=== PATIENT | male | born 1960 | race Caucasian/White ===

== ENCOUNTER → 2024-02-04 11:23 | Outpatient (REF) | payer OTHER, SELFPAY | LOC: PAVMRI 11:23 | PROVIDERS: ATTENDING PHYSICIAN Internal Medicine; FAMILY PHYSICIAN Nurse Practitioner Family | DX: C90.00 Multiple myeloma not having achieved remission (principal) | CPT/HCPCS: 72157; A9575 ==

== ENCOUNTER → 2024-06-05 14:55 | Outpatient (REF) | payer OTHER, SELFPAY | LOC: HWRCS 14:55 | PROVIDERS: ATTENDING PHYSICIAN Internal Medicine Cardiovascular Disease; FAMILY PHYSICIAN Nurse Practitioner Family | DX: I10 Essential (primary) hypertension (principal); I77.819 Aortic ectasia, unspecified site | CPT/HCPCS: 93306 ==

== ENCOUNTER → 2024-07-28 12:36 | Outpatient (REF) | payer OTHER, SELFPAY | LOC: HWRAD 12:36 | PROVIDERS: ATTENDING PHYSICIAN Nurse Practitioner Family | DX: R05.9 Cough, unspecified (principal); R53.83 Other fatigue; R09.81 Nasal congestion | CPT/HCPCS: 71046 ==

== ENCOUNTER → 2024-08-07 14:48 | Outpatient (REF) | payer OTHER, SELFPAY | LOC: RAD 14:48 | PROVIDERS: ATTENDING PHYSICIAN Internal Medicine Cardiovascular Disease; FAMILY PHYSICIAN Nurse Practitioner Family | DX: I10 Essential (primary) hypertension (principal); N28.9 Disorder of kidney and ureter, unspecified | CPT/HCPCS: 93975 ==

== ENCOUNTER 2024-10-27 21:34 | Inpatient (IN) | payer OTHER, SELFPAY ==
[2024-10-27 17:20] VITALS: BP 182/100
--- NOTE | 2024-10-27 17:20 | ED.GENMED ---
ED Provider Triage
<Hemant Day PA-C - Last Filed: 10/27/24 17:22>
-
Patient seen by provider in Triage?: Seen in Triage
64 yo male presents with abnormal outpatient labs and SOB. Had labs at [facility] today showing Cr of 4.04, baseline low 3s. Also with low serum bicarb and elevated BUN. Reportedly had 'stomach virus' last week and was not taking meds. UOP decreased. No
fevers or chills.
Lungs CTAB. No gross edema noted. Reviewed outpatient labs.
Repeat CBC, CMP, check VBG, BNP, CR chest
History of Present Illness
<Hemant Day PA-C - Last Filed: 10/27/24 17:22>
General
Chief Complaint: Breathing Problem
Time Seen by Provider: 10/27/24 19:07
<Ramesh Hernandez MD - Last Filed: 10/28/24 03:05>
General
Source: patient and spouse
Exam Limitations: none
History of Present Illness
History of Present Illness:
Progressive shortness of breath over weeks. Bump in creatinine. No chest pain. Shortness of breath at rest and lying flat. Also noting some edema. History of multiple myeloma. Patient did stop his blood pressure medicines for about a week
after having a gastrointestinal infection
Past History
<Hemant Day PA-C - Last Filed: 10/27/24 17:22>
Past History
ED Past Medical History: Arrthythmia
ED Past Surgical History: None
Social History
Tobacco: Non-smoker
Living: with family
Employment: Employed
<Ramesh Hernandez MD - Last Filed: 10/28/24 03:05>
Past History
ED Past Medical History: CAD and Other (Multiple myeloma/renal insufficiency)
ED Past Surgical History: Orthopedic
Review of Systems
<Ramesh Hernandez MD - Last Filed: 10/28/24 03:05>
Review of Systems
All Other Systems: Not applicable
Constitutional: Denies fever or chills
Respiratory: Denies cough
ABD/GI: Reports no symptoms
Phy Exam
<Ramesh Hernandez MD - Last Filed: 10/28/24 03:05>
Physical Exam
Physical Exam:
GENERAL: Alert and oriented. Mild tachypnea at rest
EYE: Orbits normal.
NECK: Supple, no significant adenopathy.
ENT: Pharynx without erythema
CARDIAC: Regular rate and rhythm without any obvious murmurs.
LUNGS: Mild tachypnea. A few rales in the bases. Port right upper chest wall
ABDOMEN: Soft, without focal tenderness or distention
NEUROLOGICAL: Alert and oriented , grossly non-focal
SKIN: Warm and dry, no rash or lesion, no discoloration, skin intact.
MUSCULOSKELETAL: Minimal bilateral edema lower extremity. Mild hand swelling bilaterally
PSYCH: Normal and appropriate interaction.
Scores
<Ramesh Hernandez MD - Last Filed: 10/28/24 03:05>
Heart Failure Risk
Heart Failure Risk Score: Yes
History of Stroke or TIA: No
History of intubation for respiratory distress: No
Heart rate on ED arrival >/= 110: No
SaO2 <90% on arrival on room air: No
HR >/=110 during 3min walk test (or too ill to perform test): Yes
ECG has acute ischemic changes: No
Urea >/=12mmol/L (BUN 33.6mg/dL): Yes
Serum CO2>/=35mmol/L: No
Troponin I or T elevated to TN Level (0.4mg/dL): No
NT-proBNP >/=5,000ng/L (5,000pg/ml): Yes
HF Risk Score: 4
Admission Status: HIGH RISK 26.1% Consider SNF treatment or admission to hospital
Course
<Hemant Day PA-C - Last Filed: 10/27/24 17:22>
Orders/Labs/Results
Orders:
Orders
10/27/24 Dinner
Cholesterol Lowering
At Your Request: Full Participation
Does patient need a safe tray?: No
Fluid Restriction: 1800 mL/day (60 oz)
Cholesterol Lowering: Sodium, 2 Gram
10/27/24 17:17
Electrocardiogram (*1) Urgent
Reason for Study: Shortness of Breath
EKG- Treatment ONCE
10/27/24 17:18
CR Chest - 2 Views Urgent
Comment:
Reason For Exam: SOB
10/27/24 17:33
Complete Blood Count/With Diff Urgent
Comprehensive Metabolic Panel Urgent
NT-proBNP Urgent
Venous Blood Gas Urgent
%Oxygen/Room Air: 97
10/27/24 19:13
IV Insert/Care/Rem.- Treatment PRN
10/27/24 20:19
Furosemide [Lasix] 40 mg IV NOW STA
10/27/24 20:54
Admit/Transfer Patient As Directed
Co-Sign Provider:
Level of Care: Inpatient admission
Assign to:: Telemetry
Physician / Group: hospitalist
Diagnosis: CHF
Reason for Telemetry: Subacute Heart Failure
Date to Stop Telemetry: 10/29/24
Time to Stop Telemetry: 11:00
Reason for Hospitalization: heart failure
Expected length of stay greater than two midnights?: Yes
ELOS- Estimated Length of Stay in days: 2
I certify the patient meets the requirements for IP care: Yes
PRN Pain Medication Management As Directed
May give lesser potent ordered pain med per pt: Yes
preference::
Protocol:: Medication orders for pain may be administered in a
manner that supports deferring to patient preference
when the pt is:
- Requesting an ordered lesser potent pain medication.
Least to most potent pain medications are defined
as: acetaminophen < NSAID < tramadol < opioids
(morphine, oxycodone, hydromorphone).
- Requesting a lesser dose of the same medication IF
ORDERED.
- Requesting a less intrusive route of administration
if both routes are prescribed by the provider (PO <
IV).
10/27/24 20:55
Code Status As Directed
Resuscitation Status: Full Code
10/27/24 22:00
Flush (0.9% Sodium Chloride) [Flush (Nss)] See Dose Instructions IV PER PROTOCOL
10/27/24 23:12
Albuterol [ProAIR HFA INHALER] 2 puff INH R Q6HPRN PRN
Calcitriol [Rocaltrol] 0.25 mcg PO MoWeFr@0800
Escitalopram Oxalate [Lexapro] 10 mg PO HS
HydrALAZINE [Apresoline] 75 mg PO NOW STA
10/27/24 23:12
Echo 2D MMode Color/Doppler Routine
Reason for Study: heart failure
HF DIETARY CONSULT Routine
HF EDUCATOR CONSULT Routine
Comment:
Urinalysis Routine
Date Specimen was Collected: 10/28/24
Time Specimen was Collected: 00:40
Urine Protein/Creat Ratio (Random) [Protein/Creat Ratio (Random)] Routine
Date Specimen was Collected: 10/28/24
Time Specimen was Collected: 00:41
Activity As Directed
Activity Level: With Assistance
Intake/ Output As Directed
Frequency: Per unit guidelines
Patient Education As Directed
Type: CHF folder
Comment: give on admission. Document in Interdisciplinary Education record
Sleep Apnea Assessment by RN As Directed
Comment:
Physician Instructions:
Vital Signs As Directed
Frequency: Other
Additional Instructions:: Q12 or per unit guidelines if more frequent.
Weight As Directed
Frequency: Daily
Type of Scale: Standing Scale
Comment: Daily morning weight. If unable to stand, use balanced bed scale.
Weight As Directed
Frequency: Once
Type of Scale: Standing Scale
Comment: Upon Admission. If unable to stand, use balanced bed scale.
O2 Therapy [RESP] Routine
Nasal Cannula Liter Flow: 2 LPM
Titrate/Wean O2 to maintain O2 sat greater than (%): 93
Pulse Ox/cont/shift [RESP] Routine
Quantity: 1
Special Instructions: Daily pulse oximetry at rest. If greater than 92% at rest also obtain pulse oximetry
while ambulating as tolerated.
DX Deep Vein Thrombosis Video Routine
10/27/24 23:30
Nebivolol HCl [Bystolic] 20 mg PO HS
10/28/24 00:00
Heparin 5,000 units SC Q8
10/28/24 06:00
Albumin IN AM
Basic Metabolic Panel IN AM
Cardiovascular Evaluation IN AM
Magnesium IN AM
TSH Reflex To Free T4 IN AM
Total Protein IN AM
10/28/24 08:00
Furosemide [Lasix] 40 mg IV BID AT 0800,1600
HydrALAZINE [Apresoline] 75 mg PO BID
Pyridoxine [Vitamin B-6] 100 mg PO DAILY
Valacyclovir HCl [Valtrex] 500 mg PO DAILY
10/29/24 06:00
Basic Metabolic Panel IN AM
10/29/24 11:00
DC Protocol for Telemetry ONCE
10/30/24 06:00
Basic Metabolic Panel IN AM
Abnormal Lab Results
10/27/24
17:33
RBC 2.67 L 10^6/uL
(4.70-6.10)
Hgb 8.8 L g/dL
(13.0-18.0)
Hct 26.1 L %
(39.0-52.0)
MCV 97.8 H fL
(80.0-94.0)
MCH 33.0 H pg
(27.0-31.0)
Abs Immat Gran (auto) 0.1 H 10^3/uL
(0-0.05)
Absolute Neuts (auto) 9.7 H 10^3/uL
(1.4-6.5)
Absolute Lymphs (auto) 0.3 L 10^3/uL
(1.2-3.4)
Immature Gran % 0.6 H %
(0-0.5)
Neutrophils % 90.1 H %
(42.2-75.2)
Lymphocytes % 3.0 L %
(20.5-51.1)
VBG pH 7.27 L
(7.32-7.43)
VBG pO2 53 H mmHg
(30-50)
VBG HCO3 16.5 L mmol/L
(22-27)
Carbon Dioxide 18 L mmol/L
(22-30)
BUN 48 H mg/dl
(9-20)
Creatinine 3.8 H mg/dL
(0.7-1.3)
Glucose 117 H mg/dl
(70-99)
Total Protein 5.8 L g/dl
(6.3-8.2)
10/27/24 17:33
10/27/24 17:33
Vital Signs
Initial and Last Documented VS:
Initial Vital Signs
Temp Pulse Resp BP Pulse Ox
98.1 F 89 18 182/100 94
10/27/24 17:20 10/27/24 17:20 10/27/24 17:20 10/27/24 17:20 10/27/24 17:20
Last Documented Vital Signs
Temp Pulse Resp BP Pulse Ox
98.0 F 80 22 168/102 96
10/27/24 22:46 10/28/24 00:11 10/27/24 22:46 10/28/24 00:11 10/27/24 23:30
<Ramesh Hernandez MD - Last Filed: 10/28/24 03:05>
Orders/Labs/Results
Orders:
Orders
10/27/24 Dinner
Cholesterol Lowering
At Your Request: Full Participation
Does patient need a safe tray?: No
Fluid Restriction: 1800 mL/day (60 oz)
Cholesterol Lowering: Sodium, 2 Gram
10/27/24 17:17
Electrocardiogram (*1) Urgent
Reason for Study: Shortness of Breath
EKG- Treatment ONCE
10/27/24 17:18
CR Chest - 2 Views Urgent
Comment:
Reason For Exam: SOB
10/27/24 17:33
Complete Blood Count/With Diff Urgent
Comprehensive Metabolic Panel Urgent
NT-proBNP Urgent
Venous Blood Gas Urgent
%Oxygen/Room Air: 97
10/27/24 19:13
IV Insert/Care/Rem.- Treatment PRN
10/27/24 20:19
Furosemide [Lasix] 40 mg IV NOW STA
10/27/24 20:54
Admit/Transfer Patient As Directed
Co-Sign Provider:
Level of Care: Inpatient admission
Assign to:: Telemetry
Physician / Group: hospitalist
Diagnosis: CHF
Reason for Telemetry: Subacute Heart Failure
Date to Stop Telemetry: 10/29/24
Time to Stop Telemetry: 11:00
Reason for Hospitalization: heart failure
Expected length of stay greater than two midnights?: Yes
ELOS- Estimated Length of Stay in days: 2
I certify the patient meets the requirements for IP care: Yes
PRN Pain Medication Management As Directed
May give lesser potent ordered pain med per pt: Yes
preference::
Protocol:: Medication orders for pain may be administered in a
manner that supports deferring to patient preference
when the pt is:
- Requesting an ordered lesser potent pain medication.
Least to most potent pain medications are defined
as: acetaminophen < NSAID < tramadol < opioids
(morphine, oxycodone, hydromorphone).
- Requesting a lesser dose of the same medication IF
ORDERED.
- Requesting a less intrusive route of administration
if both routes are prescribed by the provider (PO <
IV).
10/27/24 20:55
Code Status As Directed
Resuscitation Status: Full Code
10/27/24 22:00
Flush (0.9% Sodium Chloride) [Flush (Nss)] See Dose Instructions IV PER PROTOCOL
10/27/24 23:12
Albuterol [ProAIR HFA INHALER] 2 puff INH R Q6HPRN PRN
Calcitriol [Rocaltrol] 0.25 mcg PO MoWeFr@0800
Escitalopram Oxalate [Lexapro] 10 mg PO HS
HydrALAZINE [Apresoline] 75 mg PO NOW STA
10/27/24 23:12
Echo 2D MMode Color/Doppler Routine
Reason for Study: heart failure
HF DIETARY CONSULT Routine
HF EDUCATOR CONSULT Routine
Comment:
Urinalysis Routine
Date Specimen was Collected: 10/28/24
Time Specimen was Collected: 00:40
Urine Protein/Creat Ratio (Random) [Protein/Creat Ratio (Random)] Routine
Date Specimen was Collected: 10/28/24
Time Specimen was Collected: 00:41
Activity As Directed
Activity Level: With Assistance
Intake/ Output As Directed
Frequency: Per unit guidelines
Patient Education As Directed
Type: CHF folder
Comment: give on admission. Document in Interdisciplinary Education record
Sleep Apnea Assessment by RN As Directed
Comment:
Physician Instructions:
Vital Signs As Directed
Frequency: Other
Additional Instructions:: Q12 or per unit guidelines if more frequent.
Weight As Directed
Frequency: Daily
Type of Scale: Standing Scale
Comment: Daily morning weight. If unable to stand, use balanced bed scale.
Weight As Directed
Frequency: Once
Type of Scale: Standing Scale
Comment: Upon Admission. If unable to stand, use balanced bed scale.
O2 Therapy [RESP] Routine
Nasal Cannula Liter Flow: 2 LPM
Titrate/Wean O2 to maintain O2 sat greater than (%): 93
Pulse Ox/cont/shift [RESP] Routine
Quantity: 1
Special Instructions: Daily pulse oximetry at rest. If greater than 92% at rest also obtain pulse oximetry
while ambulating as tolerated.
DX Deep Vein Thrombosis Video Routine
10/27/24 23:30
Nebivolol HCl [Bystolic] 20 mg PO HS
10/28/24 00:00
Heparin 5,000 units SC Q8
10/28/24 06:00
Albumin IN AM
Basic Metabolic Panel IN AM
Cardiovascular Evaluation IN AM
Magnesium IN AM
TSH Reflex To Free T4 IN AM
Total Protein IN AM
10/28/24 08:00
Furosemide [Lasix] 40 mg IV BID AT 0800,1600
HydrALAZINE [Apresoline] 75 mg PO BID
Pyridoxine [Vitamin B-6] 100 mg PO DAILY
Valacyclovir HCl [Valtrex] 500 mg PO DAILY
10/29/24 06:00
Basic Metabolic Panel IN AM
10/29/24 11:00
DC Protocol for Telemetry ONCE
10/30/24 06:00
Basic Metabolic Panel IN AM
Abnormal Lab Results
10/27/24
17:33
RBC 2.67 L 10^6/uL
(4.70-6.10)
Hgb 8.8 L g/dL
(13.0-18.0)
Hct 26.1 L %
(39.0-52.0)
MCV 97.8 H fL
(80.0-94.0)
MCH 33.0 H pg
(27.0-31.0)
Abs Immat Gran (auto) 0.1 H 10^3/uL
(0-0.05)
Absolute Neuts (auto) 9.7 H 10^3/uL
(1.4-6.5)
Absolute Lymphs (auto) 0.3 L 10^3/uL
(1.2-3.4)
Immature Gran % 0.6 H %
(0-0.5)
Neutrophils % 90.1 H %
(42.2-75.2)
Lymphocytes % 3.0 L %
(20.5-51.1)
VBG pH 7.27 L
(7.32-7.43)
VBG pO2 53 H mmHg
(30-50)
VBG HCO3 16.5 L mmol/L
(22-27)
Carbon Dioxide 18 L mmol/L
(22-30)
BUN 48 H mg/dl
(9-20)
Creatinine 3.8 H mg/dL
(0.7-1.3)
Glucose 117 H mg/dl
(70-99)
Total Protein 5.8 L g/dl
(6.3-8.2)
10/27/24 17:33
10/27/24 17:33
Vital Signs
Initial and Last Documented VS:
Initial Vital Signs
Temp Pulse Resp BP Pulse Ox
98.1 F 89 18 182/100 94
10/27/24 17:20 10/27/24 17:20 10/27/24 17:20 10/27/24 17:20 10/27/24 17:20
Last Documented Vital Signs
Temp Pulse Resp BP Pulse Ox
98.0 F 80 22 168/102 96
10/27/24 22:46 10/28/24 00:11 10/27/24 22:46 10/28/24 00:11 10/27/24 23:30
<Ramesh Hernandez MD - Last Filed: 10/28/24 03:05>
MDM/Problems Addressed
Differential Diagnosis Includes:
Progressive renal insufficiency in the setting of CHF. Warrants inpatient management. Hospitalist contacted. Will likely need GI and cardiology involvement
<Ramesh Hernandez MD - Last Filed: 10/28/24 03:05>
*Radiology
Radiology exam reviewed: radiology read reviewed (Mild pulmonary edema)
*Pulse Oximetry
Patient hypoxic: no
*EKG
Interpreted by ED Provider?: Yes
Interpretation: normal
Comparison EKG: changes noted
Heart Rate: 79
Rate: normal
Rhythm: sinus
Lee: normal axis
Interval: normal interval
QRS Pattern: normal QRS
Ischemia: non-specific ST changes
*Critical Care Note
Total Time (30-74mins, 75-104mins- exclusive of procedures): Not Applicable
Data Reviewed
Review of Other/Old Records Reveals: Labs, Records and Testing
ED Attending Note
<Hemant Day PA-C - Last Filed: 10/27/24 17:22>
-
Portions of this chart may have been created with voice recognition software.� Occasional wrong word or��sound alike� substitutions may have occurred due to the inherent limitations of voice recognition software.
Discharge Plan
Departure
Patient Disposition: Admit
Date of Disposition: 10/27/24
Time of Disposition: 19:18
Presentation/result/management discussed w/ accepting MD/DO: Hospitalist
Discharge Problem:
Pulmonary edema/progressive renal insuff, Multiple myeloma
Interventions
Interventions:
*Risk Screen - Suicide Last Done: 10/28/24 00:13
*General Assessment Last Done: 10/27/24 22:13
*Neglect/Abuse Screening Last Done: 10/27/24 22:14
ED- Fall Risk Assessment Last Done: 10/27/24 19:59
*ED COVID-19 Vaccine History Last Done: 10/28/24 00:13
*Nursing Disposition Last Done: 10/27/24 22:14
ED- Cardiac Assessment Last Done: 10/27/24 19:59
ED- Pulmonary Assessment Last Done: 10/27/24 19:59
Discharge Date and Time
Discharge Date/Time: 10/27/24 22:14
[2024-10-27 17:41] LABS: % Basophils 0.3 % (0-2); % Eosinophils 0.3 % (0-6); % Immature Granulocytes 0.6 % (0-0.5); % Monocytes 5.7 % (1.7-9.3); % Neutrophils 90.1 % (42.2-75.2); Absolute Immature Granulocytes 0.1 10^3/uL (0-0.05); Absolute Lymphocytes 0.3 10^3/uL (1.2-3.4); Absolute Monocytes 0.6 10^3/uL (0.1-0.6); Absolute Neutrophils 9.7 10^3/uL (1.4-6.5); Hematocrit 26.1 % (39.0-52.0); Hemoglobin 8.8 g/dL (13.0-18.0); Mean Corp Hgb Conc. 33.7 g/dL (33.0-37.0); Mean Corpuscular Volume 97.8 fL (80.0-94.0); Mean Platelet Volume 10.3 fL (7.4-10.4); Nucleated Red Blood Cells % 0 % (-); Platelet Count 178 10^3/uL (130-400); Red Blood Cell Count 2.67 10^6/uL (4.70-6.10); Red Cell Dist. Width 14.5 % (11.5-14.5); Venous Blood Gas B.E. -9.6 mmol/L (-4 to +4); Venous Blood Gas HCO3 16.5 mmol/L (22-27); Venous Blood Gas O2 Therapy Air 97; Venous Blood Gas pCO2 36 mmHg (35-48); Venous Blood Gas pH 7.27 (7.32-7.43); Venous Blood Gas pO2 53 mmHg (30-50); White Blood Cell Count 10.7 10^3/uL (4.8-10.8)
[2024-10-27 17:58] LABS: ALT (SGPT) 18 U/L (0-50); AST (SGOT) 23 U/L (17-59); Albumin 3.9 g/dl (3.5-5.0); Alkaline Phosphatase 79 U/L (38-126); Blood Urea Nitrogen 48 mg/dl (9-20); Calcium 8.4 mg/dl (8.4-10.2); Carbon Dioxide 18 mmol/L (22-30); Chloride 104 mmol/L (98-107); Glucose 117 mg/dl (70-99); Sodium 135 mmol/L (135-145); Total Bilirubin 0.5 mg/dl (0.2-1.3); Total Protein 5.8 g/dl (6.3-8.2); eGFR 17.15
[2024-10-27 18:54] LABS: NT-proBNP > 27000 pg/ml
[2024-10-27 19:32] VITALS: BMI 33.5
[2024-10-27 19:56] VITALS: BP 174/94
[2024-10-27 20:42] VITALS: BP 177/97
[2024-10-27] MEDS: LASIX 40 MG IV (20:42)
--- NOTE | 2024-10-27 20:42 | HPS.HSE ---
Family Physician
-
Family Physician: NOT KNOW UNKNOWN - PT DOES
Chief Complaint
-
Shortness of breath
History of Present Illness
This is a 64-year-old male with past medical history significant for multiple myeloma, CKD stage IV, hypertension, presenting to the Emergency Department with shortness of breath.
Essentially patient recently had an episode of gastroenteritis with rising creatinine. On follow-up with his oncology clinic he was advised to take lots of fluid. During this episode of nausea vomiting and diarrhea he was not taking his
antihypertensives. Patient has been having worsening blood pressure control for several months however recently due to stopping his antihypertensives his blood pressure started to rise. He noticed bilateral lower extremity swelling. And he
started getting short of breath. He started taking the hydralazine and nebivolol starting about a week ago again. He has dyspnea on exertion. He denies any chest pain, he denies palpitations diaphoresis nausea or vomiting currently. He is on
maintenance therapy for his multiple myeloma.
Patient denies prior history of CHF. Last echo shows an EF of around 55% with mild aortic regurgitation.
In the ED today he was hypertensive to 180 systolic and diastolic was 100, pulse was 73 and he was satting 95% on 2 L. ECG shows normal sinus rhythm at a rate of 79. BNP was elevated at 27,000. Troponin is pending. Chest x-ray shows cardiomegaly
with pulmonary edema and small bilateral pleural effusions. CBC shows anemia with hemoglobin of 8.4 which is unchanged from prior. Creatinine is 3.8 from 3.1 a year ago. BUN 48. Potassium was 5.0 and bicarb of 18. VBG shows non-anion gap
metabolic acidosis with a pH of 7.27 and bicarb of 18
Medical History
Past Medical History
Past Medical History: Reports Cancer (Multiple myeloma) and HTN
Additional Past Medical History:
CKD stage IV
Past Surgical History: Reports Other
Social History
Tobacco: Non-smoker
Alcohol: None
Drug: None
Personal:
Living: With Family
Family History
Family History: Not pertinent
Allergies / Home Medications
Allergies reflects when Allergies were last updated in [employer].
Home Medications with original date entered in [employer]
Allergy/Medication List:
Allergies
Allergy/AdvReac Type Severity Reaction Status Date / Time
Fruit Extracts Allergy Itching Verified 12/12/22 06:02
[From Fruit & Vegetable
Daily]
Lutein Extract Allergy Itching Verified 12/12/22 06:02
[From Fruit & Vegetable
Daily]
lycopene Allergy Itching Verified 12/12/22 06:02
[From Fruit & Vegetable
Daily]
Home Medications
albuterol sulfate 90 mcg/actuation aerosol inhaler 2 puff inhalation R Q6HPRN PRN sob 10/27/24
calcitriol 0.25 mcg capsule 0.25 mcg PO MOWEFR 10/27/24
daratumumab 20 mg/mL intravenous solution (Darzalex) 0 mg IV QMONTH 10/27/24
escitalopram oxalate 10 mg tablet 10 mg PO HS 10/27/24
hydralazine 25 mg tablet 75 mg PO BID 10/27/24
loperamide 2 mg capsule 2 mg PO QIDPRN PRN diarrhea 10/27/24
nebivolol 10 mg tablet 20 mg PO HS 10/27/24
potassium chloride 20 mEq tablet,extended release(part/cryst) (Klor-Con M) 20 meq PO DAILY 10/27/24
pyridoxine (vitamin B6) 100 mg tablet 100 mg PO DAILY 10/27/24
valacyclovir 500 mg tablet 500 mg PO DAILY 10/27/24
Review of Systems
-
History Source: Patient
Constitutional: Reports No Symptoms
EENT: Reports No Symptoms
Respiratory: Reports Trouble Breathing
Cardiac: Reports No Symptoms
Abdomen/GI: Reports No Symptoms
: Reports No Symptoms
Musculoskeletal: Reports No Symptoms
Skin: Reports No Symptoms
Endocrine: Reports No Symptoms
Hematologic/Lymphatic: Reports No Symptoms
Psych: Reports No Symptoms
Physical Exam
Vital Signs
Vital Signs
Temp Pulse Resp BP Pulse Ox
98.1 F 75 23 182/100 95
10/27/24 17:20 10/27/24 19:45 10/27/24 19:45 10/27/24 17:20 10/27/24 19:45
Physical Exam
General: Well Developed, Well Nourished, Comfortable and Conversant
HEENT: NormoCephalic, Anicteric, Moist mucous membranes, Atraumatic, PERRLA and Oxygen
Respiratory: Crackles
Cardiac: S1/S2 and Regular Rhythm
Breast: Deferred by me
GI: Soft, Non Tender and Non Distended
Rectal: Deferred by Provider
Genito-urinary: Deferred by me
Musculoskeletal: No Clubbing, No Cyanosis, Edema, Left Lower Extremity (1+) and Edema, Right Lower Extremity (1+)
Skin: Warm
Neuro: AO x 3 and Nonfocal/grossly intact
Hematologic/Lymphatic: No Lymphadenopathy
Psych: Calm
Laboratory Results
-
10/27/24 17:33
10/27/24 17:33
Laboratory Results
Total Bilirubin 0.5 mg/dl (0.2-1.3) 10/27/24 17:33
AST 23 U/L (17-59) 10/27/24 17:33
ALT 18 U/L (0-50) 10/27/24 17:33
Alkaline Phosphatase 79 U/L (38-126) 10/27/24 17:33
Data Reviewed
-
Diagnostic Radiology: Image Personally Visualized and interpreted and Report Reviewed by me
Medical Tests (Nuc Med, Echo, EKG etc): Image Personally Visualized and interpreted
Lab Data: Labs Reviewed by me
Old Records: Reviewed
Impression/Plan
-
IMPRESSION:
64 y.o male with MM on maintenance therapy, stated to be in remission here with ALLYSON on CKD and volume overload with pulmonary edema, peripheral edema, uncontrolled hypertension.
PLAN:
1. Volume overload - CHF with elevated BNP. Possibly cardiorenal II. Prior echo a year ago with preserved EF. Now with pulmonary edema and hypoxia.
- admit to telemetry
- clearly volume overloaded, will give lasix 40mg iv bid for now
- monitor daily weights and i/os
- continue beta blockade and hydralazine for now
- echo in am, tsh, cardiovascular labs
- cardiology consult
2. CKD - Cr 3.8, mild hyperk to 5, mild non-ag metabolic acidosis. Suspect worsening renal failure
- diuresis as above
- bp control
- check u/a and urine protein quantification
- MM in remission per patient
- renal consult
DVT PPX - heparin sq
Code status - full code
[2024-10-27 22:46] VITALS: BP 168/102; BMI 31.8
--- NOTE | 2024-10-27 23:30 | PTCARENOTE ---
Pt. admitted from E.D., AAO x 3, 96% 2L, skin intact, NSR on monitor, call butler within reach.
[2024-10-28] MEDS: LEXAPRO PO (00:02)
[2024-10-28] MEDS: ROCALTROL PO (00:03)
[2024-10-28] MEDS: BYSTOLIC 20 MG PO ×2 (00:03→20:20)
[2024-10-28] MEDS: HEPARIN 5000 UNITS SC ×3 (00:04→15:37)
[2024-10-28] MEDS: APRESOLINE 75 MG PO ×3 (00:11→20:18)
[2024-10-28 01:03] LABS: Urine Albumin Negative (Neg - Trace); Urine Bilirubin Negative (Negative); Urine Character Clear (Clear); Urine Color Straw; Urine Glucose Negative (Negative); Urine Ketone Negative (Negative); Urine Leukocyte Negative (Negative); Urine Nitrite Negative (Negative); Urine Occult Blood Negative (Negative); Urine Urobilinogen Negative (Neg - 1+)
[2024-10-28 01:56] LABS: Protein/creatinine Ratio 0.6; Urine Protein 12 mg/dl
[2024-10-28 03:31] VITALS: BP 166/96
[2024-10-28 05:56] VITALS: BMI 31.7
[2024-10-28 07:50] VITALS: BP 164/98
[2024-10-28] MEDS: VITAMIN B-6 100 MG PO (08:44)
[2024-10-28] MEDS: LASIX 40 MG IV ×2 (08:45→15:37)
[2024-10-28] MEDS: VALTREX 500 MG PO (08:45)
[2024-10-28 09:24] LABS: Albumin 3.8 g/dl (3.5-5.0); Blood Urea Nitrogen 52 mg/dl (9-20); Calcium 8.3 mg/dl (8.4-10.2); Carbon Dioxide 16 mmol/L (22-30); Chloride 105 mmol/L (98-107); Estimated Creatinine Clearance 23 ml/min; Glucose 100 mg/dl (70-99); HDL Cholesterol 37 mg/dl; LDL Cholesterol, Calculated 110 mg/dl; Magnesium 1.8 mg/dl (1.6-2.3); Potassium 4.6 mmol/L (3.5-5.1); Sodium 134 mmol/L (135-145); Total Cholesterol 176 mg/dl (50-199); Total Protein 5.6 g/dl (6.3-8.2); Triglyceride 147 mg/dl (10-149); Very Low Density Lipoprotein 29 mg/dl (0-30); eGFR 16.62
--- NOTE | 2024-10-28 12:39 | W.PN.HOSP.TC ---
Today's Communication/Plan
-
wean o2
check stool studies if with diarrhea
diuresis
po bicarb
Assessment / Plan
Assessment / Plan
IMPRESSION:
64 y.o male with MM on maintenance therapy, stated to be in remission here with ALLYSON on CKD and volume overload with pulmonary edema, peripheral edema, uncontrolled hypertension.
Acute on chronic diastolic heart failure exacerbation
Pulmonary edema
Acute hypoxic respiratory insufficiency
- clearly volume overloaded, will give lasix 40mg iv bid for now
- monitor daily weights and i/os
- continue beta blockade and hydralazine for now
- echo wednesday if here,
CKD - Cr 3.8, mild hyperk to 5, mild non-ag metabolic acidosis.
- diuresis as above
- bp control
- check u/a and urine protein quantification
- MM in remission per patient
Multiple myeloma
-Last chemotherapy regimen was in September. Follows with Dr. Silverio Carter [facility].
Nausea, vomiting and diarrhea likely second to viral gastroenteritis norovirus suspected
-Symptoms seems to be improving. Symptomatic management. Patient stopped taking all his blood pressure and diuretics due to viral gastroenteritis likely leading to volume overload.
DVT PPX - heparin sq
Code status - full code
Anticipated Discharge: > 48 hours
Subjective/Interval History
-
Date of Service: October 28, 2024
states he is better
breathing has improved
states of 1 week ago or so with nausea,vomiting and persistent diarrhea.
Objective Data
-
Labs:
Laboratory Results
10/28/24
08:33
Sodium 134 L
Potassium 4.6
Chloride 105
Carbon Dioxide 16 L
BUN 52 H
Creatinine 3.9 H
Glucose 100 H
Calcium 8.3 L
Vital Signs:
Vital Signs
Temp Pulse Resp BP Pulse Ox
97.5 F 68 20 164/98 97
10/28/24 07:50 10/28/24 07:50 10/28/24 07:50 10/28/24 07:50 10/28/24 07:50
I&O
10/27/24 10/28/24 10/29/24
06:59 06:59 06:59
Intake Total 120 / 120
Output Total 950 / 950
Balance -830 / -830
Physical Exam
-
General: Well Developed and No Apparent Distress
HEENT: Normocephalic, Atraumatic, Moist Mucous Membranes, Oxygen and Other (port noted )
Respiratory: Decreased Breath Sounds
Cardiac: Regular Rhythm and S1/S2; Negative Murmur, Rub or Gallop
GI: Soft, Nontender, Nondistended and Normal Bowel Sounds; Negative Organomegaly
Rectal: Deferred by Provider
Musculoskeletal: No Clubbing, No Cyanosis and No Edema
Skin: Negative Rash
Neuro: Awake, Alert, Oriented, AO x 3, No Motor Deficits and Nonfocal/Grossly Intact
Psych: Calm
Data Reviewed
-
Total Time Spent with Patient (in minutes): 55
[2024-10-28] MEDS: SODIUM BICARBONATE 650 MG PO ×2 (15:34→20:21)
[2024-10-28 15:41] VITALS: BP 165/116
[2024-10-28 19:56] VITALS: BP 181/103
[2024-10-28 23:17] VITALS: BP 149/88
[2024-10-29] MEDS: LEXAPRO 10 MG PO ×2 (01:15→22:34)
[2024-10-29 03:43] VITALS: BP 169/102
[2024-10-29 05:51] VITALS: BMI 30.6
[2024-10-29 07:37] LABS: Blood Urea Nitrogen 58 mg/dl (9-20); Calcium 7.9 mg/dl (8.4-10.2); Carbon Dioxide 19 mmol/L (22-30); Chloride 103 mmol/L (98-107); Estimated Creatinine Clearance 22 ml/min; Glucose 92 mg/dl (70-99); Sodium 134 mmol/L (135-145); eGFR 16.62
[2024-10-29 07:42] VITALS: BP 148/74
[2024-10-29] MEDS: VITAMIN B-6 100 MG PO (09:11)
[2024-10-29] MEDS: SODIUM BICARBONATE 650 MG PO ×3 (09:11→22:34)
[2024-10-29] MEDS: HEPARIN 5000 UNITS SC ×4 (09:12→23:39)
[2024-10-29] MEDS: LASIX 40 MG IV (09:13)
[2024-10-29] MEDS: VALTREX 500 MG PO (10:51)
[2024-10-29] MEDS: APRESOLINE 75 MG PO ×2 (10:51→22:33)
--- NOTE | 2024-10-29 11:15 | PTCARENOTE ---
11:00 Transfered pt to [address] [place] [address] (room 2139) via wheelchair, Pt aware positive for Norovirus and needed private room (Enhance isolation). Report given to [address] [place] [address] nurse.
[2024-10-29 11:50] VITALS: BP 155/80
--- NOTE | 2024-10-29 14:05 | W.PN.HOSP.TC ---
Today's Communication/Plan
-
Urine studies
hold lasix
isolation-norovirus
renal US
ECHO in morning
Assessment / Plan
Assessment / Plan
IMPRESSION:
64 y.o male with MM on maintenance therapy, stated to be in remission here with ALLYSON on CKD and volume overload with pulmonary edema, peripheral edema, uncontrolled hypertension.
Acute on chronic diastolic heart failure exacerbation
Pulmonary edema
Acute hypoxic respiratory insufficiency
- Cr continues to trend up. Hold lasix.
- monitor daily weights and i/os
- continue beta blockade and hydralazine for now
- Probnp was >[id number] on admission
- echo wednesday
ALLYSON on CKD stage 3b
Anion gap metabolic acidosis
Hyperkalemia
-requested primary tray server Op records
-bladder scan per the protocol
-States baseline around 3-3.2.
- MM in remission per patient. 08/17 Arterial renal duplex with no renal artery stenosis bilaterally
-Check urine lytes. bladder scan protocol. US renal/bladder pending
Multiple myeloma
-Last chemotherapy regimen was in September. Follows with Dr. Silverio Carter [facility].
Nausea, vomiting and diarrhea likely second to viral gastroenteritis norovirus
-Symptoms seems to be improving. Symptomatic management. Patient stopped taking all his blood pressure
DVT PPX - heparin sq
Code status - full code
Anticipated Discharge: > 48 hours
Subjective/Interval History
-
Date of Service: October 29, 2024
states of intermittent loose bm
states of increasing amount of urination and improvement in edema
states breathing has improved
no abd pain
Objective Data
-
Labs:
Laboratory Results
10/29/24
05:51
Sodium 134 L
Potassium 4.0
Chloride 103
Carbon Dioxide 19 L
BUN 58 H
Creatinine 3.9 H
Glucose 92
Calcium 7.9 L
Vital Signs:
Vital Signs
Temp Pulse Resp BP Pulse Ox
98.3 F 65 18 148/74 96
10/29/24 07:42 10/29/24 07:42 10/29/24 07:42 10/29/24 07:42 10/29/24 11:30
I&O
10/28/24 10/29/24 10/30/24
06:59 06:59 06:59
Intake Total 120 / 120 480 / 480
Output Total 950 / 950 2150 / 2150
Balance -830 / -830 -1670 / -1670
Physical Exam
-
General: Well Developed and No Apparent Distress
HEENT: Normocephalic, Atraumatic, Moist Mucous Membranes and Other (port noted )
Respiratory: Decreased Breath Sounds
Cardiac: Regular Rhythm and S1/S2; Negative Murmur, Rub or Gallop
GI: Soft, Nontender, Nondistended and Normal Bowel Sounds; Negative Organomegaly
Rectal: Deferred by Provider
Musculoskeletal: No Clubbing, No Cyanosis and No Edema
Skin: Negative Rash
Neuro: Awake, Alert, Oriented, AO x 3, No Motor Deficits and Nonfocal/Grossly Intact
Psych: Calm
Data Reviewed
-
Total Time Spent with Patient (in minutes): 55
[2024-10-29 15:55] VITALS: BP 177/98
--- NOTE | 2024-10-29 16:23 | W.CON.NEPH ---
Consultation
-
Date/Time Consultation Requested: 10/29/24 1405
Date/Time Consultation Performed: 10/29/24 1630
Requesting Provider: Alber Cerna
Performing Provider: Antoinette Brown
Reason for Consultation: ALLYSON
Medical History
-
Chief Complaint: SOB
History of Present Illness:
64-year-old male with past medical history significant for multiple myeloma on Daratumumab monthly prior BMT, CKD stage IV baseline cr low 3 range follows nephro at [facility], hypertension on hydralazine, Nebivolol, presenting to the Emergency
Department with shortness of breath on 10/27.Reportedly patient noted to have gastroenteritis symptoms started middle of September. During this time he decided not to take his antihypertensives and was drinking or liquids, reports no change in the
amount of the urine output. Denies having any fever or chills. She started to notice lower extremity edema and eventually had shortness of breath that led him to come to the hospital. diagnosed with acute CHF, started on the diuretics with good
response however his creatinine remains elevated at 3.9 hence nephrology was consulted. BP high on admit and he is now back on his home antihypertensives. Lasix held after this morning dose.
he reports following nephrology at [place], Does not recall the name. Reports his been referred to the [facility] and had one visit yet to complete all the testing. He has no active nausea or vomiting. Still with the loose bowel
movements without abdominal pain.He lost 4 kg of wt. He is positive for no rotavirus currently in isolation. Reports his was also sick but she recovered quickly.
Past Medical History
multiple myeloma not in remission
Hypertension
CKD4
History of autologous stem cell transplant 2021
Anxiety/depression
A. fib
Anemia
Hypogammaglobulinemia
History of compression fracture T11
Obesity
Sleep apnea
History of gout
Past Surgical History: Other ( closed reduction of elbow fracture, colonoscopy, hip surgery,humerus surgery, ORIF of hip fracture, his dental extraction)
Social History
Tobacco: Non-Smoker
Alcohol: Occasional
Personal:
Living: With Family
Employment: Disabled
Family History
brother with a history of nephrectomy for kidney cancer
Father with prostate cancer and colon cancer, stroke
Allergies / Home Medications
Allergy/AdvReac Type Severity Reaction Status Date / Time
Fruit Extracts Allergy Itching Verified 12/12/22 06:02
[From Fruit & Vegetable
Daily]
Lutein Extract Allergy Itching Verified 12/12/22 06:02
[From Fruit & Vegetable
Daily]
lycopene Allergy Itching Verified 12/12/22 06:02
[From Fruit & Vegetable
Daily]
�Medication �Instructions �Recorded �Confirmed �Type
albuterol sulfate 90 mcg/actuation 2 puff inhalation R Q6HPRN PRN sob 10/27/24 10/27/24 History
aerosol inhaler
calcitriol 0.25 mcg capsule 0.25 mcg PO MOWEFR Electrolyte 10/27/24 10/27/24 History
Repletion
daratumumab 20 mg/mL intravenous 0 mg IV QMONTH Cancer 10/27/24 10/27/24 History
solution (Darzalex)
escitalopram oxalate 10 mg tablet 10 mg PO HS Depression 10/27/24 10/27/24 History
hydralazine 25 mg tablet 75 mg PO BID Blood Pressure 10/27/24 10/27/24 History
loperamide 2 mg capsule 2 mg PO QIDPRN PRN diarrhea 10/27/24 10/27/24 History
nebivolol 10 mg tablet 20 mg PO HS Blood Pressure 10/27/24 10/27/24 History
potassium chloride 20 mEq 20 meq PO DAILY Electrolyte 10/27/24 10/27/24 History
tablet,extended Repletion
release(part/cryst) (Klor-Con M)
pyridoxine (vitamin B6) 100 mg 100 mg PO DAILY Supplement 10/27/24 10/27/24 History
tablet
valacyclovir 500 mg tablet 500 mg PO DAILY antiviral 10/27/24 10/27/24 History
Review of Systems
-
All complete 12 point review of system have been inquired and found negative other than stated in HPI
Physical Exam
Vital Signs
Vital Signs
Temp Pulse Resp BP Pulse Ox
98.3 F 69 22 155/80 96
10/29/24 07:42 10/29/24 11:50 10/29/24 11:50 10/29/24 11:50 10/29/24 11:50
Lab Results
WBC 10.7 10^3/uL (4.8-10.8) 10/27/24 17:33
RBC 2.67 10^6/uL (4.70-6.10) L 10/27/24 17:33
Hgb 8.8 g/dL (13.0-18.0) L 10/27/24 17:33
Hct 26.1 % (39.0-52.0) L 10/27/24 17:33
Plt Count 178 10^3/uL (130-400) 10/27/24 17:33
Sodium 134 mmol/L (135-145) L 10/29/24 05:51
Potassium 4.0 mmol/L (3.5-5.1) 10/29/24 05:51
Chloride 103 mmol/L (98-107) 10/29/24 05:51
Carbon Dioxide 19 mmol/L (22-30) L 10/29/24 05:51
BUN 58 mg/dl (9-20) H 10/29/24 05:51
Creatinine 3.9 mg/dL (0.7-1.3) H 10/29/24 05:51
eGFR 16.62 10/29/24 05:51
Glucose 92 mg/dl (70-99) 10/29/24 05:51
Calcium 7.9 mg/dl (8.4-10.2) L 10/29/24 05:51
Cvr-F-Frujytqktqv Pept > 36116 pg/ml 10/27/24 17:33
Albumin 3.8 g/dl (3.5-5.0) 10/28/24 08:33
CXR:
IMPRESSION:
1. Mild acute interstitial cardiogenic pulmonary edema.
2. Small bilateral pleural effusions.
3. Mild cardiomegaly.
4. Right IJ chemotherapy Mediport in place.
Physical Exam
General: Awake, Alert, Oriented, AOx3, No Distress and Nontoxic
HEENT: EOMI, Anicteric, Conjunctivae Clear, Dentition Intact and No JVD
Respiratory: Clear, Normal Excursion and Nonlabored Respirations
Cardiac: S1/S2 and Regular Rate/Rhythm
Breast: Deferred by me
Abdomen: Soft, Nontender and Nondistended
Musculoskeletal: No Cyanosis and No Edema
Skin: No Rash
Neuro: Nonfocal/Grossly Intact
Psych: Mood/afflect pleasant, Insight/judgement good and Appropriate
Data Reviewed
-
Radiology: Report Reviewed by me and Discussed with Patient
Labs: Labs Reviewed by me and Discussed with Patient
Assessment/Plan
-
IMP:
GE NOrovirus
Acute on chronic diastolic heart failure exacerbation
ALLYSON on CKD stage 4
Non Anion gap metabolic acidosis
Multiple myeloma-Follows with Dr. Silverio Carter [facility] [place].
Hypertension
History of autologous stem cell transplant 2021
Anxiety/depression
h/o A. fib
Anemia
Hypogammaglobulinemia
History of compression fracture T11
Obesity
Sleep apnea
History of gout
PLan:
A/w acute CHF and GE Norovirus
ALLYSON-cr 3.9 elevated from baseline in low 3 ranges
suspect prerenal- from cardiorenal and also GE
UA was bland and Fena not low
follow bladder scan, renal US per primary
ok to hold lasix since CHF seem improved, echo pending tomorrow
non gap met acidosis-monitor on po sodium bicarb
We reviewed high risk of future HD which he understands
hopefully can escape HD this admit
low salt diet and FR
follow daily wts and labs
d/w pt in detail
[2024-10-29 17:28] LABS: Urine Sodium 69 mmol/L (30-90)
[2024-10-29 17:47] LABS: Body Fluid for Eosinophils No Eosinophils seen
[2024-10-29 19:17] VITALS: BP 135/80
[2024-10-29 20:59] LABS: Urine Uric Acid 12.7 mg/dl
[2024-10-29] MEDS: BYSTOLIC 20 MG PO (22:34)
[2024-10-29 23:11] VITALS: BP 161/93
[2024-10-30 03:44] VITALS: BP 158/84
[2024-10-30 05:31] LABS: Blood Urea Nitrogen 61 mg/dl (9-20); Calcium 8.1 mg/dl (8.4-10.2); Carbon Dioxide 22 mmol/L (22-30); Chloride 101 mmol/L (98-107); Estimated Creatinine Clearance 21 ml/min; Glucose 104 mg/dl (70-99); Potassium 3.7 mmol/L (3.5-5.1); Sodium 136 mmol/L (135-145); eGFR 15.21
[2024-10-30 06:00] VITALS: BMI 31.3
[2024-10-30 07:58] VITALS: BP 161/90
[2024-10-30] MEDS: APRESOLINE 75 MG PO ×2 (08:15→21:51)
[2024-10-30] MEDS: VITAMIN B-6 100 MG PO (08:15)
[2024-10-30] MEDS: SODIUM BICARBONATE 650 MG PO ×3 (08:17→21:52)
[2024-10-30] MEDS: VALTREX 500 MG PO (08:17)
[2024-10-30] MEDS: ROCALTROL 0.25 MCG PO (08:18)
[2024-10-30] MEDS: HEPARIN 5000 UNITS SC ×3 (08:18→23:40)
[2024-10-30 10:55] VITALS: BP 157/87
--- NOTE | 2024-10-30 11:41 | W.PN.NEPH.PH ---
Today's Communication / Plan
-
Holding Lasix
Recommend post void bladder scan given presence of left hydro on ultrasound of kidney and noncontrast CT
Assessment/Plan
-
IMP:
GE NOrovirus
Acute on chronic diastolic heart failure exacerbation
ALLYSON on CKD stage 4
Non Anion gap metabolic acidosis
Multiple myeloma-Follows with Dr. Silverio Carter [facility] [place].
Hypertension
History of autologous stem cell transplant 2021
Anxiety/depression
h/o A. fib
Anemia
Hypogammaglobulinemia
History of compression fracture T11
Obesity
Sleep apnea
History of gout
PLan:
A/w acute CHF and GE Norovirus
ALLYSON-cr up to 4.2 elevated from baseline in low 3 ranges
Left hydronephrosis noted on ultrasound: recommend clemons catheter as creatinine worsening if post void bladder scan is high, and or check CT scan to confirm hydronephrosis
If true obstruction is present will need urology consultation
Urine eosinophils negative
suspect prerenal- from cardiorenal and also GE
UA was bland and Fena not low
follow bladder scan, renal US per primary
ok to hold lasix since CHF seem improved, echo pending today
non gap met acidosis-monitor on po sodium bicarb (improving)
We reviewed high risk of future HD which he understands
hopefully can escape HD this admit
low salt diet and FR
follow daily wts and labs
d/w pt in detail
-
-
Date of Service: October 30, 2024
CC / HPI / ROS
-
Chief Complaint:
CKD stage IV
Acute kidney injury
History of Present Illness:
Creatinine up to 4.2
Hemodynamically stable
Review of Systems:
Oliguric
No fevers
Remains on oxygen but denies shortness of breath or chest pain
Labs
-
Labs:
WBC 10.7 10^3/uL (4.8-10.8) 10/27/24 17:33
RBC 2.67 10^6/uL (4.70-6.10) L 10/27/24 17:33
Hgb 8.8 g/dL (13.0-18.0) L 10/27/24 17:33
Hct 26.1 % (39.0-52.0) L 10/27/24 17:33
Plt Count 178 10^3/uL (130-400) 10/27/24 17:33
Sodium 136 mmol/L (135-145) 10/30/24 04:38
Potassium 3.7 mmol/L (3.5-5.1) 10/30/24 04:38
Chloride 101 mmol/L (98-107) 10/30/24 04:38
Carbon Dioxide 22 mmol/L (22-30) 10/30/24 04:38
BUN 61 mg/dl (9-20) H 10/30/24 04:38
Creatinine 4.2 mg/dL (0.7-1.3) H* 10/30/24 04:38
eGFR 15.21 10/30/24 04:38
Glucose 104 mg/dl (70-99) H 10/30/24 04:38
Calcium 8.1 mg/dl (8.4-10.2) L 10/30/24 04:38
Gvy-Q-Oizkkstzzoe Pept > 24694 pg/ml 10/27/24 17:33
Albumin 3.8 g/dl (3.5-5.0) 10/28/24 08:33
Physical Exam
-
Vital Signs:
Vital Signs
Temp Pulse Resp BP Pulse Ox
97.3 F 70 18 157/87 97
10/30/24 10:55 10/30/24 10:55 10/30/24 10:55 10/30/24 10:55 10/30/24 10:55
Cardiovascular:: Regular rate and rhythm
Respiratory:: Bilateral: Coarse
Lung Excursion:: Normal
Abdomen:: Nontender and Soft
Bowel Sounds:: Normal
Extremity Edema:: None: Bilateral:
Clemons Catheter: No
--- NOTE | 2024-10-30 13:31 | CM ---
Reviewed the chart notes and spoke with the patient at the bedside. Patient admitted for CHF. The patient resides with his spouse in a two story home with one step to enter. The patient reports no DME or SNF in the past, but has had VN in the
past. Patient could not recall the name of the agency. The [facility] and his pcp is Dr. James. CM continues to be available to patient/family and is monitoring medical plan
for needs at discharge.
Plan: Discharge to home when medically stable.
--- NOTE | 2024-10-30 14:52 | W.PN.UPDATE ---
Update Note
Progress Note Update
Reviewed CAT scan which notes left hydronephrosis with possible underlying mass or clot within the lumen of ureter
Consulted urology
[2024-10-30 15:25] VITALS: BP 156/92
--- NOTE | 2024-10-30 17:15 | W.PN.URO.CBU ---
Today's Communication / Plan
-
FOR OP ROOM WEDNESDAY TO PLACE STENT
Assessment / Plan
-
ALLYSON CRTREAT 3 TO 4 LEFT HYDRO NO STONE WILL DO RGP AND STENT [POSSIBLE BX REVOEWED U/S AND CAT SCAN OBTAINED CONSENT AND EXPLAINED RATIONALE OF PROCEDURE AND ALTERNATIVEDS TO PT
Diagnosis
-
Date of Service: October 30, 2024
-
Patient Diagnosis:ALLYSON WITH CKD BUT NEW LEFT HYDRO DUE TO OBSTRUCTION NON STONE ? PAP NECROSIS TCC, HEMATOMA?
Post Op Day:
Subjective
-
ASX
Objective
-
Vital Signs
Temp Pulse Resp BP Pulse Ox
97.6 F 64 16 156/92 96
10/30/24 15:25 10/30/24 15:25 10/30/24 15:25 10/30/24 15:25 10/30/24 15:25
Intake and Output
10/29/24 10/30/24 10/31/24
06:59 06:59 06:59
Intake Total 480 / 480 940 / 940 240 / 240
Output Total 2150 / 2150 450 / 450 170 / 170
Balance -1670 / -1670 490 / 490 70 / 70
Intake:
Oral fluids 480 / 480 480 / 480 240 / 240
IV fluids (Total) 460 / 460
Output:
Urine, Voided 2150 / 2150 450 / 450 170 / 170
Other:
Number of approximated MODERATE 1
amounts of urine
Laboratory Results
10/27/24 17:33
10/30/24 04:38
Review of Systems
-
: No Symptoms
Physical Exam
-
General - well developed, well nourished, no acute distress
Chest - clear bilaterally
Abdomen - soft, non-tender, positive bowel sounds, no CVAT, no incisional pain or distention
Genitalia - normal
Rectal - normal
Skin - warm & dry with no rash
Neuro - AOx3, no motor deficits
Extremities - no clubbing, no cyanosis, no edema
Incision - clean, dry
Dressing - clean, dry, intact
Care Review
Data Reviewed
Discussed with: Hospitalist, Internal Medicine and Nursing
CT Scan: Image Pers Reviewed
Ultrasound: Image Pers Reviewed
--- NOTE | 2024-10-30 18:42 | W.PN.HOSP.TC ---
Today's Communication/Plan
-
for left ureteral stent placement 10/31
Assessment / Plan
Assessment / Plan
IMPRESSION:
64 y.o male with MM on maintenance therapy, stated to be in remission here with ALLYSON on CKD and volume overload with pulmonary edema, peripheral edema, uncontrolled hypertension.
Acute on chronic diastolic heart failure exacerbation
Pulmonary edema
Acute hypoxic respiratory insufficiency
- Cr continues to trend up. Hold lasix.
- monitor daily weights and i/os
- continue beta blockade and hydralazine for now
- Probnp was >60440 on admission
- echo: Normal left ventricular size and function. Normal left ventricular systolic
function. Normal regional wall motion. LV ejection fraction is 52% by
volumetric assessment.
Mitral valve opens normally. Thickened mitral valve leaflets. There is
moderate-severe mitral regurgitation with posterior eccentric jet.
Trileaflet aortic valve. Thickened aortic valve with normal leaflet excursion.
Mild aortic regurgitation.
Tricuspid valve opens normally. Trace tricuspid regurgitation. Estimated
pulmonary artery pressure of 66 mmHg. Assuming a right atrial pressure of 8
mmHg.
Mild to moderately dilated aortic root. Sinus of Valsalva measures 4.4 cm.
Sinotubular junction measures 3.4 cm. Ascending aorta measures 4.0 cm.
Since echo May 2024, MR has worsened from mild to moderate-severe. PA
systolic pressure is increased from 20-25 mmHg to 66 mmHg.
ALLYSON on CKD stage 4
Anion gap metabolic acidosis
Hyperkalemia better 5.0-->3.[address] scan as per Dr. Vidales: 1. MODERATE LEFT HYDRONEPHROSIS secondary to a 9 mm obstructing high attenuation intraluminal lesion in the proximal left ureter. Diagnostic possibilities are (1) a left ureteral blood clot, (2) a left ureteral
mass (urothelial carcinoma), (3) an inflammatory or infectious mass (debris, fungal infection, or amyloidosis), or (4) an unusual relatively low-attenuation ureteral stone.
2. MODERATE to SEVERE CHRONIC BILATERAL RENAL DISEASE.
3. Round 1.1 cm high attenuation mass in the midpole of the left kidney (probably a hemorrhagic cyst and less likely malignancy).
4. Mild chronic pancolitis (either secondary to previous infection or inflammatory bowel disease).
5. Moderate diverticulosis in the descending and sigmoid colon.
6. Moderate-sized right and small left pleural effusions.
7. Multiple lytic lesions in the spine and pelvis (probably MULTIPLE MYELOMA given the patient's history).
8. Bilateral hip arthroplasties in place.
-requested primary machine set up Op records
-bladder scan per the protocol
-States baseline around 3-3.2.
- MM in remission per patient. 08/17 Arterial renal duplex with no renal artery stenosis bilaterally
-Check urine lytes. bladder scan protocol. US renal/bladder: 1. Mild distention of the left intrarenal collecting system.
2. SEVERE CHRONIC BILATERAL RENAL DISEASE.
Urology was consulted regarding left hydro. To have a RGP and stent placement tomorrow
Multiple myeloma
-Last chemotherapy regimen was in September. Follows with Dr. Silverio Carter [facility]. Is on chronic maintenance therapy monthly, was due this week, but did not receive due to rising Creat.
Underwent autologous stem cell transplant 2021
Nausea, vomiting and diarrhea likely second to viral gastroenteritis norovirus
-Symptoms seems to be improving. Symptomatic management. Patient stopped taking all his blood pressure Rx, back on Bystolic and Hydralazine
DVT PPX - heparin sq
Code status - full code
Anticipated Discharge: 24 - 48 hours
Subjective/Interval History
-
Date of Service: October 30, 2024
Generally feels better than at time of admission
Objective Data
-
Vital Signs:
Vital Signs
Temp Pulse Resp BP Pulse Ox
97.6 F 64 16 156/92 96
10/30/24 15:25 10/30/24 15:25 10/30/24 15:25 10/30/24 15:25 10/30/24 15:25
I&O
10/29/24 10/30/24 10/31/24
06:59 06:59 06:59
Intake Total 480 / 480 940 / 940 240 / 240
Output Total 2150 / 2150 450 / 450 345 / 345
Balance -1670 / -1670 490 / 490 -105 / -105
Review of Systems
-
History Source: Patient and Coordinated Provider
Constitutional: Denies Fever
EENT: Reports No Symptoms Reported
Respiratory: Reports No Symptoms; Denies Cough
Cardiac: Reports No Symptoms; Denies Chest Pain
Musculoskeletal: Reports No Symptoms
Physical Exam
-
General: Well Developed and No Apparent Distress
HEENT: Normocephalic, Atraumatic, Moist Mucous Membranes and Other (port noted )
Respiratory: Decreased Breath Sounds
Cardiac: Regular Rhythm and S1/S2; Negative Murmur, Rub or Gallop
GI: Soft, Nontender, Nondistended and Normal Bowel Sounds; Negative Organomegaly
Musculoskeletal: No Clubbing, No Cyanosis and No Edema
Skin: Negative Rash
Neuro: Awake, Alert, Oriented, AO x 3, No Motor Deficits and Nonfocal/Grossly Intact
Psych: Calm
[2024-10-30 19:21] VITALS: BP 142/75
[2024-10-30] MEDS: BYSTOLIC 20 MG PO (21:51)
[2024-10-30] MEDS: MELATONIN 5 MG PO (21:52)
[2024-10-30] MEDS: LEXAPRO 10 MG PO (21:52)
[2024-10-30 23:22] VITALS: BP 156/85
[2024-10-31] VITALS (16 sets, daily range): BP systolic 121–182; BP diastolic 68–106; BMI 31.7
[2024-10-31] MEDS: ProAIR HFA INHALER 2 PUFF INH (02:12)
[2024-10-31 05:21] LABS: % Basophils 0.1 % (0-2); % Eosinophils 0.7 % (0-6); % Immature Granulocytes 0.4 % (0-0.5); % Lymphocytes 5.9 % (20.5-51.1); % Monocytes 9.5 % (1.7-9.3); % Neutrophils 83.4 % (42.2-75.2); Absolute Eosinophils 0.1 10^3/uL (0-0.7); Absolute Lymphocytes 0.5 10^3/uL (1.2-3.4); Absolute Monocytes 0.8 10^3/uL (0.1-0.6); Absolute Neutrophils 6.7 10^3/uL (1.4-6.5); Hematocrit 23.5 % (39.0-52.0); Hemoglobin 8.1 g/dL (13.0-18.0); Mean Corp Hgb Conc. 34.5 g/dL (33.0-37.0); Mean Corpuscular Hgb 33.9 pg (27.0-31.0); Mean Corpuscular Volume 98.3 fL (80.0-94.0); Mean Platelet Volume 10.9 fL (7.4-10.4); Nucleated Red Blood Cells % 0 % (-); Platelet Count 162 10^3/uL (130-400); Red Blood Cell Count 2.39 10^6/uL (4.70-6.10); Red Cell Dist. Width 14.4 % (11.5-14.5)
[2024-10-31 06:45] LABS: Blood Urea Nitrogen 59 mg/dl (9-20); Calcium 8.2 mg/dl (8.4-10.2); Carbon Dioxide 22 mmol/L (22-30); Chloride 99 mmol/L (98-107); Estimated Creatinine Clearance 23 ml/min; Glucose 112 mg/dl (70-99); Potassium 3.7 mmol/L (3.5-5.1); Sodium 134 mmol/L (135-145); eGFR 16.62
[2024-10-31] MEDS: SODIUM BICARBONATE 650 MG PO ×3 (08:05→21:09)
[2024-10-31] MEDS: VALTREX 500 MG PO (08:05)
[2024-10-31] MEDS: HEPARIN 5000 UNITS SC ×3 (08:05→23:31)
[2024-10-31] MEDS: VITAMIN B-6 100 MG PO (08:05)
[2024-10-31] MEDS: APRESOLINE 75 MG PO ×2 (08:06→21:06)
--- NOTE | 2024-10-31 09:55 | CM ---
Reviewed the chart notes. Patient for or left ureteral stent placement today. CM continues to be available to patient/family and is monitoring medical plan for needs at discharge.
Plan: Discharge to home when medically stable. No needs anticipated.
--- NOTE | 2024-10-31 10:47 | PTCARENOTE ---
Patient resting in bed up upright position this AM, awaiting stent placement procedure. He appears comfortable and calm; has been NPO this past night. Given AM meds and I explained that I would tell him when they call down for him. He would like to
shower later and I told him I'd let him know if the doctor will allow it.
[2024-10-31] MEDS: Pyridium 200 MG PO (12:57)
--- NOTE | 2024-10-31 13:29 | PTCARENOTE ---
Received patient back from PACU, he is resting comfortably with 2L O2, answers questions appropriately, able to make needs known. VS checked, and called back his to update her.
--- NOTE | 2024-10-31 14:54 | W.PN.NEPH.PH ---
Today's Communication / Plan
-
Follow BMP
Assessment/Plan
-
IMP:
GE NOrovirus
Acute on chronic diastolic heart failure exacerbation
ALLYSON on CKD stage 4
Non Anion gap metabolic acidosis
Multiple myeloma-Follows with Dr. Silverio Carter [facility] [place].
Hypertension
History of autologous stem cell transplant 2021
Anxiety/depression
h/o A. fib
Anemia
Hypogammaglobulinemia
History of compression fracture T11
Obesity
Sleep apnea
History of gout
PLan:
A/w acute CHF and GE Norovirus
ALLYSON-improved to 3.9 after left ureter stent placement by urology
Discussed with urology today, likely more inflammatory as opposed to actual tumor but biopsies were taken during cystoscopy
Urine eosinophils negative
suspect prerenal- from cardiorenal and also GE
UA was bland and Fena not low
follow bladder scan, renal US per primary
ok to hold lasix since CHF seem improved, echo pending today
non gap met acidosis-monitor on po sodium bicarb (improving)
We reviewed high risk of future HD which he understands
hopefully can escape HD this admit
low salt diet and FR
follow daily wts and labs
d/w pt in detail
-
-
Date of Service: October 31, 2024
CC / HPI / ROS
-
Chief Complaint:
CKD stage IV
Acute kidney injury
History of Present Illness:
Creatinine down to 3.9
Hemodynamically stable
Status post left ureter stent placement on 10/31/2024
Review of Systems:
None oliguric
No fevers
Remains on oxygen but denies shortness of breath or chest pain
Labs
-
Labs:
WBC 8.0 10^3/uL (4.8-10.8) 10/31/24 04:35
RBC 2.39 10^6/uL (4.70-6.10) L 10/31/24 04:35
Hgb 8.1 g/dL (13.0-18.0) L 10/31/24 04:35
Hct 23.5 % (39.0-52.0) L 10/31/24 04:35
Plt Count 162 10^3/uL (130-400) 10/31/24 04:35
Sodium 134 mmol/L (135-145) L 10/31/24 04:35
Potassium 3.7 mmol/L (3.5-5.1) 10/31/24 04:35
Chloride 99 mmol/L (98-107) 10/31/24 04:35
Carbon Dioxide 22 mmol/L (22-30) 10/31/24 04:35
BUN 59 mg/dl (9-20) H 10/31/24 04:35
Creatinine 3.9 mg/dL (0.7-1.3) H 10/31/24 04:35
eGFR 16.62 10/31/24 04:35
Glucose 112 mg/dl (70-99) H 10/31/24 04:35
Calcium 8.2 mg/dl (8.4-10.2) L 10/31/24 04:35
Zkq-O-Wrwtojmfugd Pept > 67484 pg/ml 10/27/24 17:33
Albumin 3.8 g/dl (3.5-5.0) 10/28/24 08:33
Physical Exam
-
Vital Signs:
Vital Signs
Temp Pulse Resp BP Pulse Ox
98.1 F 69 18 176/103 95
10/31/24 14:20 10/31/24 14:20 10/31/24 14:20 10/31/24 14:20 10/31/24 14:20
Cardiovascular:: Regular rate and rhythm
Respiratory:: Bilateral: Coarse
Lung Excursion:: Normal
Abdomen:: Nontender and Soft
Bowel Sounds:: Normal
Extremity Edema:: None: Bilateral:
Dugan Catheter: No
--- NOTE | 2024-10-31 16:59 | PTCARENOTE ---
Patient voided 750cc bloody urine.
--- NOTE | 2024-10-31 17:58 | PTCARENOTE ---
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
--- NOTE | 2024-10-31 18:00 | W.PN.HOSP.TC ---
Today's Communication/Plan
-
adjust BP Rx
recheck Hgb
Assessment / Plan
Assessment / Plan
IMPRESSION:
64 y.o male with MM on maintenance therapy, stated to be in remission here with ALLYSON on CKD and volume overload with pulmonary edema, peripheral edema, uncontrolled hypertension.
Acute on chronic diastolic heart failure exacerbation
Pulmonary edema
Acute hypoxic respiratory insufficiency
- Cr was trending up. Hold lasix. Creat 4.2-->3.9
- monitor daily weights and i/os
- continue beta blockade and hydralazine for now
- Probnp was >23559 on admission
- echo: Normal left ventricular size and function. Normal left ventricular systolic
function. Normal regional wall motion. LV ejection fraction is 52% by
volumetric assessment.
Mitral valve opens normally. Thickened mitral valve leaflets. There is
moderate-severe mitral regurgitation with posterior eccentric jet.
Trileaflet aortic valve. Thickened aortic valve with normal leaflet excursion.
Mild aortic regurgitation.
Tricuspid valve opens normally. Trace tricuspid regurgitation. Estimated
pulmonary artery pressure of 66 mmHg. Assuming a right atrial pressure of 8
mmHg.
Mild to moderately dilated aortic root. Sinus of Valsalva measures 4.4 cm.
Sinotubular junction measures 3.4 cm. Ascending aorta measures 4.0 cm.
Since echo May 2024, MR has worsened from mild to moderate-severe. PA
systolic pressure is increased from 20-25 mmHg to 66 mmHg.
ALLYSON on CKD stage 4
Anion gap metabolic acidosis
Hyperkalemia better 5.0-->3.[address] scan as per Dr. Vidales: 1. MODERATE LEFT HYDRONEPHROSIS secondary to a 9 mm obstructing high attenuation intraluminal lesion in the proximal left ureter. Diagnostic possibilities are (1) a left ureteral blood clot, (2) a left ureteral
mass (urothelial carcinoma), (3) an inflammatory or infectious mass (debris, fungal infection, or amyloidosis), or (4) an unusual relatively low-attenuation ureteral stone.
2. MODERATE to SEVERE CHRONIC BILATERAL RENAL DISEASE.
3. Round 1.1 cm high attenuation mass in the midpole of the left kidney (probably a hemorrhagic cyst and less likely malignancy).
4. Mild chronic pancolitis (either secondary to previous infection or inflammatory bowel disease).
5. Moderate diverticulosis in the descending and sigmoid colon.
6. Moderate-sized right and small left pleural effusions.
7. Multiple lytic lesions in the spine and pelvis (probably MULTIPLE MYELOMA given the patient's history).
8. Bilateral hip arthroplasties in place.
-requested primary well logging captain Op records
-bladder scan per the protocol
-States baseline around 3-3.2.
- MM in remission per patient. 08/17 Arterial renal duplex with no renal artery stenosis bilaterally
-Check urine lytes. bladder scan protocol. US renal/bladder: 1. Mild distention of the left intrarenal collecting system.
2. SEVERE CHRONIC BILATERAL RENAL DISEASE.
Urology was consulted regarding left hydro. Had RGP and stent placement today
HTN
back on usual BP Rx
though BP running high 174/102
will defer to nephro whether better to add 3rd Rx or increase dosing
Multiple myeloma
-Last chemotherapy regimen was in September. Follows with Dr. Silverio Carter [facility]. Is on chronic maintenance therapy monthly with Darzlex, was due this week, but did not receive due to rising Creat.
Underwent autologous stem cell transplant 2021
Anemia
multifactorial hgb 8.8-->8.1
recheck CBC tomorrow
Nausea, vomiting and diarrhea likely second to viral gastroenteritis norovirus noted to be positive on 10/28
-Symptoms seems to be improving. Symptomatic management. Patient stopped taking all his blood pressure Rx, back on Bystolic and Hydralazine
DVT PPX - heparin sq
Code status - full code
Anticipated Discharge: > 48 hours
Subjective/Interval History
-
Date of Service: October 31, 2024
Awake, alert
Objective Data
-
Labs:
Laboratory Results
10/31/24
04:35
Sodium 134 L
Potassium 3.7
Chloride 99
Carbon Dioxide 22
BUN 59 H
Creatinine 3.9 H
Glucose 112 H
Calcium 8.2 L
Vital Signs:
Vital Signs
Temp Pulse Resp BP Pulse Ox
97.3 F 69 16 174/102 97
10/31/24 16:55 10/31/24 16:55 10/31/24 16:55 10/31/24 16:55 10/31/24 16:55
I&O
10/30/24 10/31/24 11/01/24
06:59 06:59 06:59
Intake Total 940 / 940 760 / 760
Output Total 450 / 450 620 / 620 1000 / 1000
Balance 490 / 490 140 / 140 -1000 / -1000
Review of Systems
-
History Source: Patient and Coordinated Provider
Constitutional: Denies Fever
EENT: Reports No Symptoms Reported
Respiratory: Reports No Symptoms; Denies Cough
Cardiac: Reports No Symptoms; Denies Chest Pain
Musculoskeletal: Reports No Symptoms
Physical Exam
-
General: Well Developed and No Apparent Distress
HEENT: Normocephalic, Atraumatic, Moist Mucous Membranes and Other (port noted )
Respiratory: Decreased Breath Sounds
Cardiac: Regular Rhythm and S1/S2; Negative Murmur, Rub or Gallop
GI: Soft, Nontender, Nondistended and Normal Bowel Sounds; Negative Organomegaly
Musculoskeletal: No Clubbing, No Cyanosis and No Edema
Skin: Negative Rash
Neuro: Awake, Alert, Oriented, AO x 3, No Motor Deficits and Nonfocal/Grossly Intact
Psych: Calm
[2024-10-31] MEDS: LEXAPRO 10 MG PO (21:07)
[2024-10-31] MEDS: PROCARDIA XL (EXTENDED RELEASE) 30 MG PO (21:07)
[2024-10-31] MEDS: MELATONIN 5 MG PO (21:08)
[2024-10-31] MEDS: BYSTOLIC 20 MG PO (21:08)
[2024-11-01 03:27] VITALS: BP 142/80
[2024-11-01 05:21] LABS: % Basophils 0.1 % (0-2); % Immature Granulocytes 0.5 % (0-0.5); % Lymphocytes 3.1 % (20.5-51.1); % Monocytes 6.3 % (1.7-9.3); Absolute Lymphocytes 0.3 10^3/uL (1.2-3.4); Absolute Monocytes 0.5 10^3/uL (0.1-0.6); Absolute Neutrophils 7.5 10^3/uL (1.4-6.5); Hematocrit 24.5 % (39.0-52.0); Hemoglobin 8.4 g/dL (13.0-18.0); Mean Corp Hgb Conc. 34.3 g/dL (33.0-37.0); Mean Corpuscular Hgb 33.3 pg (27.0-31.0); Mean Corpuscular Volume 97.2 fL (80.0-94.0); Mean Platelet Volume 10.4 fL (7.4-10.4); Nucleated Red Blood Cells % 0 % (-); Platelet Count 159 10^3/uL (130-400); Red Blood Cell Count 2.52 10^6/uL (4.70-6.10); Red Cell Dist. Width 14.1 % (11.5-14.5); White Blood Cell Count 8.4 10^3/uL (4.8-10.8)
[2024-11-01 05:38] VITALS: BMI 31.1
[2024-11-01 05:55] LABS: Blood Urea Nitrogen 66 mg/dl (9-20); Calcium 8.3 mg/dl (8.4-10.2); Carbon Dioxide 20 mmol/L (22-30); Chloride 100 mmol/L (98-107); Estimated Creatinine Clearance 20 ml/min; Glucose 120 mg/dl (70-99); Potassium 4.1 mmol/L (3.5-5.1); Sodium 134 mmol/L (135-145); eGFR 14.78
[2024-11-01 07:00] VITALS: BP 132/68; BMI 31.1
[2024-11-01] MEDS: VALTREX 500 MG PO (08:17)
[2024-11-01] MEDS: SODIUM BICARBONATE 650 MG PO ×3 (08:18→22:14)
[2024-11-01] MEDS: APRESOLINE 75 MG PO ×2 (08:18→20:02)
[2024-11-01] MEDS: PROCARDIA XL (EXTENDED RELEASE) 30 MG PO ×2 (08:18→19:57)
[2024-11-01] MEDS: VITAMIN B-6 100 MG PO (08:19)
[2024-11-01] MEDS: HEPARIN 5000 UNITS SC ×3 (08:19→23:35)
[2024-11-01] MEDS: ROCALTROL 0.25 MCG PO (08:22)
[2024-11-01 11:00] VITALS: BP 153/84
--- NOTE | 2024-11-01 12:09 | W.PN.URO.CBU ---
Today's Communication / Plan
-
NO CHANGES
Assessment / Plan
-
ALLYSON CRTREAT 3 TO 4 LEFT HYDRO NO STONE STENTED BUT CREATININE UP OR STABLE FOR NOW CONTINUE PRESENT CARE CREATININE MAY REFLECT YESTARDAY BEINGNPO WILL FOLLOW BUT AWAIT CYSTOLIDGY AND BXS KEEP STENT MONITOR CREATININE
Diagnosis
-
Date of Service: November 01, 2024
-
Patient Diagnosis:
Post Op Day:
Patient Diagnosis:ALLYSON WITH CKD BUT NEW LEFT HYDRO DUE TO OBSTRUCTION NON STONE ? PAP NECROSIS TCC, HEMATOMA?
Post Op Day:
Subjective
-
tolerating jj stent
Objective
-
Vital Signs
Temp Pulse Resp BP Pulse Ox
97.7 F 65 16 132/68 93
11/01/24 07:00 11/01/24 07:00 11/01/24 07:00 11/01/24 07:00 11/01/24 08:57
Intake and Output
10/31/24 11/01/24 11/02/24
06:59 06:59 06:59
Intake Total 760 / 760
Output Total 620 / 620 2575 / 2575
Balance 140 / 140 -2575 / -2575
Intake:
Oral fluids 760 / 760
Output:
Urine, Voided 620 / 620 2575 / 2575
Other:
Number of unmeasured voidings 1
Number of approximated MODERATE 2
amounts of urine
How many times incontinent 1
Laboratory Results
11/01/24 04:58
11/01/24 04:58
Review of Systems
-
: Dark Urine
Physical Exam
-
General - well developed, well nourished, no acute distress
Chest - clear bilaterally
Abdomen - soft, non-tender, positive bowel sounds, no CVAT, no incisional pain or distention
Genitalia - normal
Rectal - normal
Skin - warm & dry with no rash
Neuro - AOx3, no motor deficits
Extremities - no clubbing, no cyanosis, no edema
Incision - clean, dry
Dressing - clean, dry, intact
--- NOTE | 2024-11-01 14:19 | CM ---
Reviewed the chart notes. Per notes, patient had a left double-J stent placement, 6-Swedish, 24 cm. CM continues to be available to patient/family and is monitoring medical plan for needs at discharge.
Plan: Discharge to home with no anticipated needs being identified at this time.
[2024-11-01 14:26] VITALS: BP 146/72
--- NOTE | 2024-11-01 17:14 | W.PN.NEPH.PH ---
Today's Communication / Plan
-
follow labs
Assessment/Plan
-
IMP:
GE NOrovirus
Acute on chronic diastolic heart failure exacerbation
ALLYSON on CKD stage 4
Non Anion gap metabolic acidosis
Multiple myeloma-Follows with Dr. Silverio Carter [facility].
Hypertension
History of autologous stem cell transplant 2021
Anxiety/depression
h/o A. fib
Anemia
Hypogammaglobulinemia
History of compression fracture T11
Obesity
Sleep apnea
History of gout
PLan:
A/w acute CHF and GE Norovirus
ALLYSON- increasing to 4.3 no clear etiology, almost polyuric now
left ureter stent placement by urology on 10/31,await biopsy
Urine eosinophils negative
suspect prerenal- from cardiorenal and also GE
UA was bland and Fena not low
follow bladder scan
cont to hold lasix since CHF seem improved, echo shows mod to severe MR
non gap met acidosis-monitor on po sodium bicarb
We reviewed high risk of future HD if renal function worsens -which he understands
hopefully can escape HD this admit
low salt diet and FR
follow daily wts and labs
d/w pt in detail
-
-
Date of Service: November 01, 2024
CC / HPI / ROS
-
Chief Complaint:
CKD stage IV
Acute kidney injury
History of Present Illness:
Creatinine up at 4.3, polyuric 3.8;lit
Hemodynamically stable
Status post left ureter stent placement on 10/31/2024
Review of Systems:
None oliguric, reports urine out put slowing today
No fevers
Remains on oxygen but denies shortness of breath or chest pain
Labs
-
Labs:
WBC 8.4 10^3/uL (4.8-10.8) 11/01/24 04:58
RBC 2.52 10^6/uL (4.70-6.10) L 11/01/24 04:58
Hgb 8.4 g/dL (13.0-18.0) L 11/01/24 04:58
Hct 24.5 % (39.0-52.0) L 11/01/24 04:58
Plt Count 159 10^3/uL (130-400) 11/01/24 04:58
Sodium 134 mmol/L (135-145) L 11/01/24 04:58
Potassium 4.1 mmol/L (3.5-5.1) 11/01/24 04:58
Chloride 100 mmol/L (98-107) 11/01/24 04:58
Carbon Dioxide 20 mmol/L (22-30) L 11/01/24 04:58
BUN 66 mg/dl (9-20) H 11/01/24 04:58
Creatinine 4.3 mg/dL (0.7-1.3) H* 11/01/24 04:58
eGFR 14.78 11/01/24 04:58
Glucose 120 mg/dl (70-99) H 11/01/24 04:58
Calcium 8.3 mg/dl (8.4-10.2) L 11/01/24 04:58
Svs-T-Vjothiqaxqg Pept > 55688 pg/ml 10/27/24 17:33
Albumin 3.8 g/dl (3.5-5.0) 10/28/24 08:33
Physical Exam
-
Vital Signs:
Vital Signs
Temp Pulse Resp BP Pulse Ox
98.3 F 70 17 146/72 97
11/01/24 14:26 11/01/24 14:26 11/01/24 14:26 11/01/24 14:26 11/01/24 14:26
Cardiovascular:: Regular rate and rhythm
Respiratory:: Bilateral: CTA
Lung Excursion:: Normal
Abdomen:: Nontender and Soft
Bowel Sounds:: Normal
Extremity Edema:: None: Bilateral:
Dugan Catheter: No
--- NOTE | 2024-11-01 17:32 | W.PN.HOSP.TC ---
Today's Communication/Plan
-
follow BP and renal studies
Assessment / Plan
Assessment / Plan
IMPRESSION:
64 y.o male with MM on maintenance therapy, stated to be in remission here with ALLYSON on CKD and volume overload with pulmonary edema, peripheral edema, uncontrolled hypertension.
Acute on chronic diastolic heart failure exacerbation
Pulmonary edema
Acute hypoxic respiratory insufficiency
- Cr was trending up. Hold lasix. Creat 4.2-->3.9-->4.3
- monitor daily weights and i/os
- continue beta blockade and hydralazine for now
- Probnp was >[id number] on admission
- echo: Normal left ventricular size and function. Normal left ventricular systolic
function. Normal regional wall motion. LV ejection fraction is 52% by
volumetric assessment.
Mitral valve opens normally. Thickened mitral valve leaflets. There is
moderate-severe mitral regurgitation with posterior eccentric jet.
Trileaflet aortic valve. Thickened aortic valve with normal leaflet excursion.
Mild aortic regurgitation.
Tricuspid valve opens normally. Trace tricuspid regurgitation. Estimated
pulmonary artery pressure of 66 mmHg. Assuming a right atrial pressure of 8
mmHg.
Mild to moderately dilated aortic root. Sinus of Valsalva measures 4.4 cm.
Sinotubular junction measures 3.4 cm. Ascending aorta measures 4.0 cm.
Since echo May 2024, MR has worsened from mild to moderate-severe. PA
systolic pressure is increased from 20-25 mmHg to 66 mmHg.
ALLYSON on CKD stage 4
Anion gap metabolic acidosis
Hyperkalemia better 5.0-->3.[address] scan as per Dr. Vidales: 1. MODERATE LEFT HYDRONEPHROSIS secondary to a 9 mm obstructing high attenuation intraluminal lesion in the proximal left ureter. Diagnostic possibilities are (1) a left ureteral blood clot, (2) a left ureteral
mass (urothelial carcinoma), (3) an inflammatory or infectious mass (debris, fungal infection, or amyloidosis), or (4) an unusual relatively low-attenuation ureteral stone.
2. MODERATE to SEVERE CHRONIC BILATERAL RENAL DISEASE.
3. Round 1.1 cm high attenuation mass in the midpole of the left kidney (probably a hemorrhagic cyst and less likely malignancy).
4. Mild chronic pancolitis (either secondary to previous infection or inflammatory bowel disease).
5. Moderate diverticulosis in the descending and sigmoid colon.
6. Moderate-sized right and small left pleural effusions.
7. Multiple lytic lesions in the spine and pelvis (probably MULTIPLE MYELOMA given the patient's history).
8. Bilateral hip arthroplasties in place.
-requested primary compliance assistant Op records
-bladder scan per the protocol
-States baseline around 3-3.2.
- MM in remission per patient. 08/17 Arterial renal duplex with no renal artery stenosis bilaterally
-Check urine lytes. bladder scan protocol. US renal/bladder: 1. Mild distention of the left intrarenal collecting system.
2. SEVERE CHRONIC BILATERAL RENAL DISEASE.
Urology was consulted regarding left hydro. Had RGP and stent placement 10/31
HTN
back on usual BP Rx
though BP better 146/72 with addition of Procardia XL 30 bid
Multiple myeloma
-Last chemotherapy regimen was in September. Follows with Dr. Silverio Carter [facility]. Is on chronic maintenance therapy monthly with Darzlex, was due this week, but did not receive due to rising Creat.
Underwent autologous stem cell transplant 2021
Anemia
multifactorial hgb 8.8-->8.1-->8.4
Nausea, vomiting and diarrhea likely second to viral gastroenteritis norovirus noted to be positive on 10/28
-symptoms appear to have resolved
DVT PPX - heparin sq
Code status - full code
Anticipated Discharge: 24 - 48 hours
Subjective/Interval History
-
Date of Service: November 01, 2024
Feels better, no diarrhea past 24 hrs
Objective Data
-
Labs:
Laboratory Results
11/01/24
04:58
Sodium 134 L
Potassium 4.1
Chloride 100
Carbon Dioxide 20 L
BUN 66 H
Creatinine 4.3 H*
Glucose 120 H
Calcium 8.3 L
Vital Signs:
Vital Signs
Temp Pulse Resp BP Pulse Ox
98.3 F 70 17 146/72 97
11/01/24 14:26 11/01/24 14:26 11/01/24 14:26 11/01/24 14:26 11/01/24 14:26
I&O
10/31/24 11/01/24 11/02/24
06:59 06:59 06:59
Intake Total 760 / 760 960 / 960
Output Total 620 / 620 2575 / 2575 2054
Balance 140 / 140 -2575 / -2575 -1095 / -1095
Review of Systems
-
History Source: Patient and Coordinated Provider
Constitutional: Denies Fever
EENT: Reports No Symptoms Reported
Respiratory: Reports No Symptoms; Denies Cough
Cardiac: Reports No Symptoms; Denies Chest Pain
Abdomen/GI: Denies Diarrhea (resolved)
Musculoskeletal: Reports No Symptoms
Physical Exam
-
General: Well Developed and No Apparent Distress
HEENT: Normocephalic, Atraumatic, Moist Mucous Membranes and Other (port noted )
Respiratory: Decreased Breath Sounds
Cardiac: Regular Rhythm and S1/S2; Negative Murmur, Rub or Gallop
GI: Soft, Nontender, Nondistended and Normal Bowel Sounds; Negative Organomegaly
Musculoskeletal: No Clubbing, No Cyanosis and No Edema
Skin: Negative Rash
Neuro: Awake, Alert, Oriented, AO x 3, No Motor Deficits and Nonfocal/Grossly Intact
Psych: Calm
[2024-11-01] MEDS: MELATONIN 5 MG PO (22:14)
[2024-11-01] MEDS: LEXAPRO 10 MG PO (22:16)
[2024-11-01] MEDS: BYSTOLIC 20 MG PO (22:22)
[2024-11-01 23:07] VITALS: BP 137/78
[2024-11-02 05:07] LABS: Hemoglobin 8.1 g/dL (13.0-18.0); Mean Corp Hgb Conc. 33.8 g/dL (33.0-37.0); Mean Corpuscular Hgb 33.2 pg (27.0-31.0); Mean Corpuscular Volume 98.4 fL (80.0-94.0); Mean Platelet Volume 10.6 fL (7.4-10.4); Platelet Count 161 10^3/uL (130-400); Red Blood Cell Count 2.44 10^6/uL (4.70-6.10); Red Cell Dist. Width 14.6 % (11.5-14.5); White Blood Cell Count 9.6 10^3/uL (4.8-10.8)
[2024-11-02 05:41] LABS: Blood Urea Nitrogen 76 mg/dl (9-20); Calcium 8.4 mg/dl (8.4-10.2); Carbon Dioxide 21 mmol/L (22-30); Chloride 99 mmol/L (98-107); Estimated Creatinine Clearance 19 ml/min; Glucose 119 mg/dl (70-99); Potassium 3.8 mmol/L (3.5-5.1); Sodium 136 mmol/L (135-145); eGFR 13.63
[2024-11-02 05:50] VITALS: BMI 30.7
[2024-11-02 07:00] VITALS: BMI 30.7
[2024-11-02 07:50] VITALS: BP 141/80
[2024-11-02] MEDS: VALTREX 500 MG PO (08:20)
[2024-11-02] MEDS: PROCARDIA XL (EXTENDED RELEASE) 30 MG PO ×2 (08:20→19:38)
[2024-11-02] MEDS: SODIUM BICARBONATE 650 MG PO ×3 (08:21→21:09)
[2024-11-02] MEDS: APRESOLINE 75 MG PO ×2 (08:22→19:37)
[2024-11-02] MEDS: VITAMIN B-6 100 MG PO (08:22)
[2024-11-02] MEDS: HEPARIN 5000 UNITS SC ×3 (08:22→23:50)
--- NOTE | 2024-11-02 08:24 | W.PN.URO.CBU ---
Today's Communication / Plan
-
renal u/s today and ifhydro then perc tube please call dr jeffery when returns from u/s
Assessment / Plan
-
ALLYSON CRTREAT 3 TO 4 LEFT HYDRO NO STONE STENTED BUT CREATININE UP again will obtain u/s and if hydro then perc tube
Diagnosis
-
Date of Service: November 02, 2024
-
Patient Diagnosis:
Post Op Day:
Patient Diagnosis:
Post Op Day:
Patient Diagnosis:ALLYSON WITH CKD BUT NEW LEFT HYDRO DUE TO OBSTRUCTION NON STONE ? PAP NECROSIS TCC, HEMATOMA?
Post Op Day:
Subjective
-
asx
Objective
-
Vital Signs
Temp Pulse Resp BP Pulse Ox
97.5 F 79 18 137/78 94
11/01/24 23:07 11/01/24 23:07 11/01/24 23:07 11/01/24 23:07 11/02/24 01:45
Intake and Output
11/01/24 11/02/24 11/03/24
06:59 06:59 06:59
Intake Total 1440 / 1440
Output Total 2575 / 2575 4225 / 4225
Balance -2575 / -2575 -2785 / -2785
Intake:
Oral fluids 1440 / 1440
Output:
Urine, Voided 2575 / 2575 4225 / 4225
Other:
Number of unmeasured voidings 1
How many times incontinent 1
Laboratory Results
11/02/24 04:55
11/02/24 04:55
Review of Systems
-
: No Symptoms
Physical Exam
-
General - well developed, well nourished, no acute distress
Chest - clear bilaterally
Abdomen - soft, non-tender, positive bowel sounds, no CVAT, no incisional pain or distention
Genitalia - normal
Rectal - normal
Skin - warm & dry with no rash
Neuro - AOx3, no motor deficits
Extremities - no clubbing, no cyanosis, no edema
Incision - clean, dry
Dressing - clean, dry, intact
--- NOTE | 2024-11-02 10:54 | W.PN.NEPH.PH ---
Today's Communication / Plan
-
IVF, labs later today
Assessment/Plan
-
IMP:
GE NOrovirus
Acute on chronic diastolic heart failure exacerbation
ALLYSON on CKD stage 4
Non Anion gap metabolic acidosis
Multiple myeloma-Follows with Dr. Silverio Carter [facility].
Hypertension
History of autologous stem cell transplant 2021
Anxiety/depression
h/o A. fib
Anemia
Hypogammaglobulinemia
History of compression fracture T11
Obesity
Sleep apnea
History of gout
PLan:
A/w acute CHF and GE Norovirus
ALLYSON- increasing to 4.6, possible from polyuria and prerenal etiology
will give him IVF today and labs later today
left ureter stent placement by urology on 10/31,await biopsy, repeat US no hydro
follow bladder scan, 28cc
cont to hold lasix, echo shows mod to severe MR
non gap met acidosis-monitor on po sodium bicarb
We reviewed high risk of future HD if renal function cont to worsens -which he understands
hopefully can escape HD this admit
low salt diet and no FR
follow daily wts and labs
d/w pt in detail
d/w primary
-
-
Date of Service: November 02, 2024
CC / HPI / ROS
-
Chief Complaint:
CKD stage IV
Acute kidney injury
History of Present Illness:
Creatinine up at 4.6, polyuric over 4;lit
Hemodynamically stable
Status post left ureter stent placement on 10/31/2024
Review of Systems:
No fevers
no shortness of breath or chest pain
felt mild nausea during US
Labs
-
Labs:
WBC 9.6 10^3/uL (4.8-10.8) 11/02/24 04:55
RBC 2.44 10^6/uL (4.70-6.10) L 11/02/24 04:55
Hgb 8.1 g/dL (13.0-18.0) L 11/02/24 04:55
Hct 24.0 % (39.0-52.0) L 11/02/24 04:55
Plt Count 161 10^3/uL (130-400) 11/02/24 04:55
Sodium 136 mmol/L (135-145) 11/02/24 04:55
Potassium 3.8 mmol/L (3.5-5.1) 11/02/24 04:55
Chloride 99 mmol/L (98-107) 11/02/24 04:55
Carbon Dioxide 21 mmol/L (22-30) L 11/02/24 04:55
BUN 76 mg/dl (9-20) H 11/02/24 04:55
Creatinine 4.6 mg/dL (0.7-1.3) H* 11/02/24 04:55
eGFR 13.63 11/02/24 04:55
Glucose 119 mg/dl (70-99) H 11/02/24 04:55
Calcium 8.4 mg/dl (8.4-10.2) 11/02/24 04:55
Nrw-A-Rxpbvhwxfog Pept > 35345 pg/ml 10/27/24 17:33
Albumin 3.8 g/dl (3.5-5.0) 10/28/24 08:33
Physical Exam
-
Vital Signs:
Vital Signs
Temp Pulse Resp BP Pulse Ox
97.7 F 64 16 141/80 97
11/02/24 07:50 11/02/24 07:50 11/02/24 07:50 11/02/24 07:50 11/02/24 07:50
Cardiovascular:: Regular rate and rhythm
Respiratory:: Bilateral: CTA
Lung Excursion:: Normal
Extremity Edema:: None: Bilateral:
Dugan Catheter: No
[2024-11-02] MEDS: NSS 1000 IV ×2 (11:57→22:01)
--- NOTE | 2024-11-02 12:56 | W.PN.HOSP.TC ---
Today's Communication/Plan
-
IVF supplement, recheck renal fxn. Hopefully can avoid dialysis
Assessment / Plan
Assessment / Plan
IMPRESSION:
64 y.o male with MM on maintenance therapy, stated to be in remission here with ALLYSON on CKD and volume overload with pulmonary edema, peripheral edema, uncontrolled hypertension.
Acute on chronic diastolic heart failure exacerbation
Pulmonary edema
Acute hypoxic respiratory insufficiency
- Cr was trending up. Hold lasix. Creat 4.2-->3.9-->4.3-->4.[address] Turner concerned rising Creat could be from pt being behind in fluid. IVF supplement started
- monitor daily weights and i/os
- continue beta blockade and hydralazine for now
- Probnp was >21942 on admission
- echo: Normal left ventricular size and function. Normal left ventricular systolic
function. Normal regional wall motion. LV ejection fraction is 52% by
volumetric assessment.
Mitral valve opens normally. Thickened mitral valve leaflets. There is
moderate-severe mitral regurgitation with posterior eccentric jet.
Trileaflet aortic valve. Thickened aortic valve with normal leaflet excursion.
Mild aortic regurgitation.
Tricuspid valve opens normally. Trace tricuspid regurgitation. Estimated
pulmonary artery pressure of 66 mmHg. Assuming a right atrial pressure of 8
mmHg.
Mild to moderately dilated aortic root. Sinus of Valsalva measures 4.4 cm.
Sinotubular junction measures 3.4 cm. Ascending aorta measures 4.0 cm.
Since echo May 2024, MR has worsened from mild to moderate-severe. PA
systolic pressure is increased from 20-25 mmHg to 66 mmHg.
ALLYSON on CKD stage 4
Anion gap metabolic acidosis
Hyperkalemia better 5.0-->3.7-->3.[address] scan as per Dr. Vidales: 1. MODERATE LEFT HYDRONEPHROSIS secondary to a 9 mm obstructing high attenuation intraluminal lesion in the proximal left ureter. Diagnostic possibilities are (1) a left ureteral blood clot, (2) a left ureteral
mass (urothelial carcinoma), (3) an inflammatory or infectious mass (debris, fungal infection, or amyloidosis), or (4) an unusual relatively low-attenuation ureteral stone.
2. MODERATE to SEVERE CHRONIC BILATERAL RENAL DISEASE.
3. Round 1.1 cm high attenuation mass in the midpole of the left kidney (probably a hemorrhagic cyst and less likely malignancy).
4. Mild chronic pancolitis (either secondary to previous infection or inflammatory bowel disease).
5. Moderate diverticulosis in the descending and sigmoid colon.
6. Moderate-sized right and small left pleural effusions.
7. Multiple lytic lesions in the spine and pelvis (probably MULTIPLE MYELOMA given the patient's history).
8. Bilateral hip arthroplasties in place.
-requested primary legal cashier Op records
-bladder scan per the protocol
-States baseline around 3-3.2.
- MM in remission per patient. 08/17 Arterial renal duplex with no renal artery stenosis bilaterally
-Check urine lytes. bladder scan protocol. US renal/bladder: 1. Mild distention of the left intrarenal collecting system.
2. SEVERE CHRONIC BILATERAL RENAL DISEASE.
Urology was consulted regarding left hydro. Had RGP and stent placement 10/31
HTN
back on usual BP Rx
though BP better 146/72-141/80 with addition of Procardia XL 30 bid
Multiple myeloma
-Last chemotherapy regimen was in September. Follows with Dr. Silverio Carter [facility]. Is on chronic maintenance therapy monthly with Darzlex, was due this week, but did not receive due to rising Creat.
Underwent autologous stem cell transplant 2021
Anemia
multifactorial hgb 8.8-->8.1-->8.4-->8.1
Nausea, vomiting and diarrhea likely secondary to viral gastroenteritis norovirus noted to be positive on 10/28
-symptoms appear to have resolved
DVT PPX - heparin sq
Code status - full code
Anticipated Discharge: > 48 hours
Subjective/Interval History
-
Date of Service: November 02, 2024
Reviewed with pt and Dr. Turner in room
Objective Data
-
Labs:
Laboratory Results
11/02/24 11/02/24
04:55 17:00
WBC 9.6
Hgb 8.1 L
Hct 24.0 L
Plt Count 161
Sodium 136 Pending
Potassium 3.8 Pending
Chloride 99 Pending
Carbon Dioxide 21 L Pending
BUN 76 H Pending
Creatinine 4.6 H* Pending
Glucose 119 H Pending
Calcium 8.4 Pending
Vital Signs:
Vital Signs
Temp Pulse Resp BP Pulse Ox
97.7 F 64 16 141/80 97
11/02/24 07:50 11/02/24 07:50 11/02/24 07:50 11/02/24 07:50 11/02/24 11:19
I&O
11/01/24 11/02/24 11/03/24
06:59 06:59 06:59
Intake Total 1440 / 1440
Output Total 2575 / 2575 4225 / 4225
Balance -2575 / -2575 -2785 / -2785
Review of Systems
-
History Source: Patient and Coordinated Provider
Constitutional: Denies Fever
EENT: Reports No Symptoms Reported
Respiratory: Reports No Symptoms; Denies Cough
Cardiac: Reports No Symptoms; Denies Chest Pain
Abdomen/GI: Denies Diarrhea (resolved)
Musculoskeletal: Reports No Symptoms
Physical Exam
-
General: Well Developed and No Apparent Distress
HEENT: Normocephalic, Atraumatic, Moist Mucous Membranes and Other (port noted )
Respiratory: Decreased Breath Sounds
Cardiac: Regular Rhythm and S1/S2; Negative Murmur, Rub or Gallop
GI: Soft, Nontender, Nondistended and Normal Bowel Sounds; Negative Organomegaly
Musculoskeletal: No Clubbing, No Cyanosis and No Edema
Skin: Negative Rash
Neuro: Awake, Alert, Oriented, AO x 3, No Motor Deficits and Nonfocal/Grossly Intact
Psych: Calm
--- NOTE | 2024-11-02 15:44 | CM ---
Reviewed the chart notes. IVF initiated. CM continues to be available to patient/family and is monitoring medical plan for needs at discharge.
Plan: Discharge to home with no needs provided patient does not need to initiate HD.
[2024-11-02 16:00] VITALS: BP 151/88
[2024-11-02 17:32] LABS: Blood Urea Nitrogen 76 mg/dl (9-20); Calcium 8.3 mg/dl (8.4-10.2); Carbon Dioxide 22 mmol/L (22-30); Chloride 99 mmol/L (98-107); Estimated Creatinine Clearance 19 ml/min; Glucose 110 mg/dl (70-99); Potassium 3.6 mmol/L (3.5-5.1); Sodium 133 mmol/L (135-145); eGFR 13.63
[2024-11-02] MEDS: LEXAPRO 10 MG PO (21:09)
[2024-11-02] MEDS: MELATONIN 5 MG PO (21:09)
[2024-11-02] MEDS: BYSTOLIC 20 MG PO (21:09)
[2024-11-02 23:08] VITALS: BP 118/62
[2024-11-03 05:20] LABS: % Basophils 0.1 % (0-2); % Eosinophils 0.3 % (0-6); % Immature Granulocytes 0.6 % (0-0.5); % Lymphocytes 3.6 % (20.5-51.1); % Monocytes 7.3 % (1.7-9.3); % Neutrophils 88.1 % (42.2-75.2); Absolute Immature Granulocytes 0.1 10^3/uL (0-0.05); Absolute Lymphocytes 0.4 10^3/uL (1.2-3.4); Absolute Monocytes 0.8 10^3/uL (0.1-0.6); Absolute Neutrophils 9.9 10^3/uL (1.4-6.5); Hematocrit 24.8 % (39.0-52.0); Hemoglobin 8.2 g/dL (13.0-18.0); Mean Corp Hgb Conc. 33.1 g/dL (33.0-37.0); Mean Corpuscular Hgb 32.8 pg (27.0-31.0); Mean Corpuscular Volume 99.2 fL (80.0-94.0); Mean Platelet Volume 10.6 fL (7.4-10.4); Nucleated Red Blood Cells % 0 % (-); Platelet Count 158 10^3/uL (130-400); Red Cell Dist. Width 14.6 % (11.5-14.5); White Blood Cell Count 11.3 10^3/uL (4.8-10.8)
[2024-11-03 05:23] VITALS: BMI 29.9
[2024-11-03 05:49] LABS: Blood Urea Nitrogen 76 mg/dl (9-20); Calcium 7.9 mg/dl (8.4-10.2); Carbon Dioxide 22 mmol/L (22-30); Chloride 101 mmol/L (98-107); Estimated Creatinine Clearance 17 ml/min; Glucose 114 mg/dl (70-99); Potassium 3.7 mmol/L (3.5-5.1); Sodium 136 mmol/L (135-145); eGFR 14.38
[2024-11-03 07:00] VITALS: BMI 29.9
[2024-11-03 07:40] VITALS: BP 141/81
[2024-11-03] MEDS: NSS 1000 IV ×2 (08:04→20:34)
[2024-11-03] MEDS: APRESOLINE 75 MG PO ×2 (08:05→20:42)
[2024-11-03] MEDS: HEPARIN 5000 UNITS SC ×3 (08:06→23:51)
[2024-11-03] MEDS: PROCARDIA XL (EXTENDED RELEASE) 30 MG PO ×2 (08:10→20:41)
[2024-11-03] MEDS: SODIUM BICARBONATE 650 MG PO ×3 (08:11→22:26)
[2024-11-03] MEDS: VALTREX 500 MG PO (08:11)
[2024-11-03] MEDS: VITAMIN B-6 100 MG PO (08:11)
[2024-11-03] MEDS: ROCALTROL 0.25 MCG PO (08:21)
--- NOTE | 2024-11-03 09:57 | W.PN.HOSP.TC ---
Today's Communication/Plan
-
continue IVF
recheck labs in AM
Assessment / Plan
Assessment / Plan
IMPRESSION:
64 y.o male with MM on maintenance therapy, stated to be in remission here with ALLYSON on CKD and volume overload with pulmonary edema, peripheral edema, uncontrolled hypertension BP now 141/81.
Acute on chronic diastolic heart failure exacerbation
Pulmonary edema
Acute hypoxic respiratory insufficiency
- Cr was trending up. Hold lasix. Creat 4.2-->3.9-->4.3-->4.6-->4.[address] Turner concerned rising Creat could be from pt being behind in fluid. IVF supplement started. Discussed with Dr. Vidales, wants to see what Creat does over next 24 hrs, but for now to continue IVF
- monitor daily weights and i/os
- continue beta blockade and hydralazine for now
- Probnp was >[id number] on admission
- echo: Normal left ventricular size and function. Normal left ventricular systolic
function. Normal regional wall motion. LV ejection fraction is 52% by
volumetric assessment.
Mitral valve opens normally. Thickened mitral valve leaflets. There is
moderate-severe mitral regurgitation with posterior eccentric jet.
Trileaflet aortic valve. Thickened aortic valve with normal leaflet excursion.
Mild aortic regurgitation.
Tricuspid valve opens normally. Trace tricuspid regurgitation. Estimated
pulmonary artery pressure of 66 mmHg. Assuming a right atrial pressure of 8
mmHg.
Mild to moderately dilated aortic root. Sinus of Valsalva measures 4.4 cm.
Sinotubular junction measures 3.4 cm. Ascending aorta measures 4.0 cm.
Since echo May 2024, MR has worsened from mild to moderate-severe. PA
systolic pressure is increased from 20-25 mmHg to 66 mmHg.
ALLYSON on CKD stage 4
Anion gap metabolic acidosis
Hyperkalemia better 5.0-->3.7-->3.[address] scan as per Dr. Vidales: 1. MODERATE LEFT HYDRONEPHROSIS secondary to a 9 mm obstructing high attenuation intraluminal lesion in the proximal left ureter. Diagnostic possibilities are (1) a left ureteral blood clot, (2) a left ureteral
mass (urothelial carcinoma), (3) an inflammatory or infectious mass (debris, fungal infection, or amyloidosis), or (4) an unusual relatively low-attenuation ureteral stone.
2. MODERATE to SEVERE CHRONIC BILATERAL RENAL DISEASE.
3. Round 1.1 cm high attenuation mass in the midpole of the left kidney (probably a hemorrhagic cyst and less likely malignancy).
4. Mild chronic pancolitis (either secondary to previous infection or inflammatory bowel disease).
5. Moderate diverticulosis in the descending and sigmoid colon.
6. Moderate-sized right and small left pleural effusions.
7. Multiple lytic lesions in the spine and pelvis (probably MULTIPLE MYELOMA given the patient's history).
8. Bilateral hip arthroplasties in place.
-requested primary steam fitter Op records
-bladder scan per the protocol
-States baseline around 3-3.2.
- MM in remission per patient. 08/17 Arterial renal duplex with no renal artery stenosis bilaterally
-Check urine lytes. bladder scan protocol. US renal/bladder: 1. Mild distention of the left intrarenal collecting system.
2. SEVERE CHRONIC BILATERAL RENAL DISEASE.
Urology was consulted regarding left hydro. Had RGP and stent placement 10/31
HTN
back on usual BP Rx
though BP better 146/72-141/80 with addition of Procardia XL 30 bid
Multiple myeloma
-Last chemotherapy regimen was in September. Follows with Dr. Silverio Carter [facility]. Is on chronic maintenance therapy monthly with Darzlex, was due this week, but did not receive due to rising Creat.
Underwent autologous stem cell transplant 2021
Anemia
multifactorial hgb 8.8-->8.1-->8.4-->8.1-->8.2
Nausea, vomiting and diarrhea likely secondary to viral gastroenteritis norovirus noted to be positive on 10/28
-symptoms appear to have resolved
DVT PPX - heparin sq
Code status - full code
Anticipated Discharge: 24 - 48 hours
Subjective/Interval History
-
Date of Service: November 03, 2024
Awake, alert, conversant
Objective Data
-
Labs:
Laboratory Results
11/03/24 11/03/24
05:02 05:03
WBC 11.3 H
Hgb 8.2 L
Hct 24.8 L
Plt Count 158
Sodium 136
Potassium 3.7
Chloride 101
Carbon Dioxide 22
BUN 76 H
Creatinine 4.4 H*
Glucose 114 H
Calcium 7.9 L
Vital Signs:
Vital Signs
Temp Pulse Resp BP Pulse Ox
97.4 F 63 16 141/81 94
11/03/24 07:40 11/03/24 08:05 11/03/24 07:40 11/03/24 08:05 11/03/24 07:40
I&O
11/02/24 11/03/24 11/04/24
06:59 06:59 06:59
Intake Total 1440 / 1440 3200 / 3200
Output Total 4225 / 4225 5305 / 5305
Balance -2785 / -2785 -2105 / -2105
Review of Systems
-
History Source: Patient and Coordinated Provider
Constitutional: Denies Fever
EENT: Reports No Symptoms Reported
Respiratory: Reports No Symptoms; Denies Cough
Cardiac: Reports No Symptoms; Denies Chest Pain
Abdomen/GI: Denies Diarrhea (resolved)
Musculoskeletal: Reports No Symptoms
Physical Exam
-
General: Well Developed and No Apparent Distress
HEENT: Normocephalic, Atraumatic, Moist Mucous Membranes and Other (port noted )
Respiratory: Decreased Breath Sounds
Cardiac: Regular Rhythm and S1/S2; Negative Murmur, Rub or Gallop
GI: Soft, Nontender, Nondistended and Normal Bowel Sounds; Negative Organomegaly
Musculoskeletal: No Clubbing, No Cyanosis and No Edema
Skin: Negative Rash
Neuro: Awake, Alert, Oriented, AO x 3, No Motor Deficits and Nonfocal/Grossly Intact
Psych: Calm
--- NOTE | 2024-11-03 11:38 | W.PN.NEPH.PH ---
Today's Communication / Plan
-
Maintain IV fluids in setting of polyuria in setting of postobstructive diuresis
Assessment/Plan
-
IMP:
GE NOrovirus
Acute on chronic diastolic heart failure exacerbation
ALLYSON on CKD stage 4
Non Anion gap metabolic acidosis
Multiple myeloma-Follows with Dr. Silverio Carter [facility].
Hypertension
History of autologous stem cell transplant 2021
Anxiety/depression
h/o A. fib
Anemia
Hypogammaglobulinemia
History of compression fracture T11
Obesity
Sleep apnea
History of gout
PLan:
A/w acute CHF and GE Norovirus
ALLYSON-down to 4.4, likely from polyuria and prerenal etiology , in setting of postobstructive diuresis following stent placement
Urine output in excess of 5 L
Maintain IV fluid
left ureter stent placement by urology on 10/31,await biopsy, repeat US no hydro
follow bladder scan, 28cc
continue to hold lasix, echo shows mod to severe MR , but uop > 5liters and weights continue to drop
non gap met acidosis-monitor on po sodium bicarb
hopefully can escape HD this admit
low salt diet and no FR
follow daily wts and labs
d/w pt in detail
d/w primary
-
-
Date of Service: November 03, 2024
CC / HPI / ROS
-
Chief Complaint:
CKD stage IV
Acute kidney injury
History of Present Illness:
Creatinine down at 4.4, polyuric over 4;lit
Hemodynamically stable
Status post left ureter stent placement on 10/31/2024
Review of Systems:
No fevers
no shortness of breath or chest pain
felt mild nausea during US
Polyuric greater than 5 L
Labs
-
Labs:
WBC 11.3 10^3/uL (4.8-10.8) H 11/03/24 05:03
RBC 2.50 10^6/uL (4.70-6.10) L 11/03/24 05:03
Hgb 8.2 g/dL (13.0-18.0) L 11/03/24 05:03
Hct 24.8 % (39.0-52.0) L 11/03/24 05:03
Plt Count 158 10^3/uL (130-400) 11/03/24 05:03
Sodium 136 mmol/L (135-145) 11/03/24 05:02
Potassium 3.7 mmol/L (3.5-5.1) 11/03/24 05:02
Chloride 101 mmol/L (98-107) 11/03/24 05:02
Carbon Dioxide 22 mmol/L (22-30) 11/03/24 05:02
BUN 76 mg/dl (9-20) H 11/03/24 05:02
Creatinine 4.4 mg/dL (0.7-1.3) H* 11/03/24 05:02
eGFR 14.38 11/03/24 05:02
Glucose 114 mg/dl (70-99) H 11/03/24 05:02
Calcium 7.9 mg/dl (8.4-10.2) L 11/03/24 05:02
Yzo-Y-Kdazqttiosp Pept > 73033 pg/ml 10/27/24 17:33
Albumin 3.8 g/dl (3.5-5.0) 10/28/24 08:33
Physical Exam
-
Vital Signs:
Vital Signs
Temp Pulse Resp BP Pulse Ox
97.4 F 63 16 141/81 94
11/03/24 07:40 11/03/24 08:05 11/03/24 07:40 11/03/24 08:05 11/03/24 07:40
Cardiovascular:: Regular rate and rhythm
Respiratory:: Bilateral: CTA
Lung Excursion:: Normal
Extremity Edema:: None: Bilateral:
Dugan Catheter: No
--- NOTE | 2024-11-03 12:43 | CM ---
Reviewed the chart notes and spoke with the patient at the bedside. Patient is s/p left ureter stent placement by urology on 10/31. The patient anticipates being discharged to home when medically stable. Patient's spouse will provide transportation
home. CM continues to be available to patient/family and is monitoring medical plan for needs at discharge.
Plan: Discharge to home when medically stable. No additional needs identified at this time.
[2024-11-03 15:30] VITALS: BP 128/63
[2024-11-03] MEDS: LEXAPRO 10 MG PO (22:26)
[2024-11-03] MEDS: BYSTOLIC 20 MG PO (22:26)
[2024-11-03] MEDS: MELATONIN PO (22:27)
[2024-11-03 23:45] VITALS: BP 127/69
[2024-11-04 04:42] LABS: % Basophils 0.1 % (0-2); % Eosinophils 0.7 % (0-6); % Immature Granulocytes 0.7 % (0-0.5); % Lymphocytes 3.8 % (20.5-51.1); % Monocytes 7.3 % (1.7-9.3); % Neutrophils 87.4 % (42.2-75.2); Absolute Eosinophils 0.1 10^3/uL (0-0.7); Absolute Immature Granulocytes 0.1 10^3/uL (0-0.05); Absolute Lymphocytes 0.4 10^3/uL (1.2-3.4); Absolute Monocytes 0.8 10^3/uL (0.1-0.6); Hematocrit 25.3 % (39.0-52.0); Hemoglobin 8.6 g/dL (13.0-18.0); Mean Corpuscular Hgb 33.5 pg (27.0-31.0); Mean Corpuscular Volume 98.4 fL (80.0-94.0); Mean Platelet Volume 10.5 fL (7.4-10.4); Nucleated Red Blood Cells % 0 % (-); Platelet Count 163 10^3/uL (130-400); Red Blood Cell Count 2.57 10^6/uL (4.70-6.10); Red Cell Dist. Width 14.6 % (11.5-14.5); White Blood Cell Count 11.4 10^3/uL (4.8-10.8)
[2024-11-04 05:23] LABS: Blood Urea Nitrogen 76 mg/dl (9-20); Calcium 8.4 mg/dl (8.4-10.2); Carbon Dioxide 18 mmol/L (22-30); Chloride 102 mmol/L (98-107); Estimated Creatinine Clearance 18 ml/min; Glucose 110 mg/dl (70-99); Potassium 3.7 mmol/L (3.5-5.1); Sodium 135 mmol/L (135-145); eGFR 15.21
[2024-11-04 06:00] VITALS: BMI 29.5
[2024-11-04 06:57] VITALS: BP 146/87
[2024-11-04 07:00] VITALS: BMI 29.5
[2024-11-04] MEDS: HEPARIN 5000 UNITS SC ×3 (08:30→23:36)
[2024-11-04] MEDS: PROCARDIA XL (EXTENDED RELEASE) 30 MG PO ×2 (08:30→19:52)
[2024-11-04] MEDS: VITAMIN B-6 100 MG PO (08:30)
[2024-11-04] MEDS: APRESOLINE 75 MG PO ×2 (08:31→19:52)
[2024-11-04] MEDS: SODIUM BICARBONATE 650 MG PO ×3 (08:31→22:05)
[2024-11-04] MEDS: VALTREX 500 MG PO (08:31)
--- NOTE | 2024-11-04 09:13 | W.PN.HOSP.TC ---
Today's Communication/Plan
-
continue IVF
follow BMP
Assessment / Plan
Assessment / Plan
IMPRESSION:
64 y.o male with MM on maintenance therapy, stated to be in remission here with ALLYSON on CKD and volume overload with pulmonary edema, peripheral edema, uncontrolled hypertension BP now 141/81-146/87.
Acute on chronic diastolic heart failure exacerbation
Pulmonary edema
Acute hypoxic respiratory insufficiency
- Cr was trending up. Hold lasix. Creat 4.2-->3.9-->4.3-->4.6-->4.4-->4.[address] Turner concerned rising Creat could be from pt being behind in fluid. IVF supplement started. Discussed with Dr. Vidales, wants to see what Creat does over next 24 hrs, but for now to continue IVF, concerned about high urine output
- monitor daily weights and i/os
- continue beta blockade, Procardia and hydralazine for now
- Probnp was >[id number] on admission
- echo: Normal left ventricular size and function. Normal left ventricular systolic
function. Normal regional wall motion. LV ejection fraction is 52% by
volumetric assessment.
Mitral valve opens normally. Thickened mitral valve leaflets. There is
moderate-severe mitral regurgitation with posterior eccentric jet.
Trileaflet aortic valve. Thickened aortic valve with normal leaflet excursion.
Mild aortic regurgitation.
Tricuspid valve opens normally. Trace tricuspid regurgitation. Estimated
pulmonary artery pressure of 66 mmHg. Assuming a right atrial pressure of 8
mmHg.
Mild to moderately dilated aortic root. Sinus of Valsalva measures 4.4 cm.
Sinotubular junction measures 3.4 cm. Ascending aorta measures 4.0 cm.
Since echo May 2024, MR has worsened from mild to moderate-severe. PA
systolic pressure is increased from 20-25 mmHg to 66 mmHg.
ALLYSON on CKD stage 4
Anion gap metabolic acidosis
Hyperkalemia better 5.0-->3.7-->3.8-->3.[address] scan as per Dr. Vidales: 1. MODERATE LEFT HYDRONEPHROSIS secondary to a 9 mm obstructing high attenuation intraluminal lesion in the proximal left ureter. Diagnostic possibilities are (1) a left ureteral blood clot, (2) a left ureteral
mass (urothelial carcinoma), (3) an inflammatory or infectious mass (debris, fungal infection, or amyloidosis), or (4) an unusual relatively low-attenuation ureteral stone.
2. MODERATE to SEVERE CHRONIC BILATERAL RENAL DISEASE.
3. Round 1.1 cm high attenuation mass in the midpole of the left kidney (probably a hemorrhagic cyst and less likely malignancy).
4. Mild chronic pancolitis (either secondary to previous infection or inflammatory bowel disease).
5. Moderate diverticulosis in the descending and sigmoid colon.
6. Moderate-sized right and small left pleural effusions.
7. Multiple lytic lesions in the spine and pelvis (probably MULTIPLE MYELOMA given the patient's history).
8. Bilateral hip arthroplasties in place.
-requested primary geothermal powerplant supervisor Op records
-bladder scan per the protocol
-States baseline around 3-3.2.
- MM in remission per patient. 08/17 Arterial renal duplex with no renal artery stenosis bilaterally
-Check urine lytes. bladder scan protocol. US renal/bladder: 1. Mild distention of the left intrarenal collecting system.
2. SEVERE CHRONIC BILATERAL RENAL DISEASE.
Urology was consulted regarding left hydro. Had RGP and stent placement 10/31. Pathology still pending
Reviewed situation with Dr. Vidales, for now does not believe appropriate to dc with high urine output. Discussed with patient. If changes mind, I will be contacted
HTN
back on usual BP Rx
though BP better 146/72-141/80 with addition of Procardia XL 30 bid
Multiple myeloma
-Last chemotherapy regimen was in September. Follows with Dr. Silverio Carter [facility]. Is on chronic maintenance therapy monthly with Darzlex, was due this week, but did not receive due to rising Creat.
Underwent autologous stem cell transplant 2021
Anemia
multifactorial hgb 8.8-->8.1-->8.4-->8.1-->8.2-->8.6
Nausea, vomiting and diarrhea likely secondary to viral gastroenteritis norovirus noted to be positive on 10/28
-symptoms appear to have resolved
DVT PPX - heparin sq
Code status - full code
Anticipated Discharge: 24 - 48 hours
Subjective/Interval History
-
Date of Service: November 04, 2024
Generally feels better, asking about timing of dc
Objective Data
-
Labs:
Laboratory Results
11/04/24
04:27
WBC 11.4 H
Hgb 8.6 L
Hct 25.3 L
Plt Count 163
Sodium 135
Potassium 3.7
Chloride 102
Carbon Dioxide 18 L
BUN 76 H
Creatinine 4.2 H*
Glucose 110 H
Calcium 8.4
Vital Signs:
Vital Signs
Temp Pulse Resp BP Pulse Ox
97.7 F 65 16 146/87 97
11/04/24 06:57 11/04/24 08:30 11/04/24 06:57 11/04/24 08:30 11/04/24 06:57
I&O
11/03/24 11/04/24 11/05/24
06:59 06:59 06:59
Intake Total 3200 / 3200 5420 / 5420
Output Total 5305 / 5305 5475 / 5475
Balance -2105 / -2105 -55 / -55
Review of Systems
-
History Source: Patient and Coordinated Provider
Constitutional: Denies Fever
EENT: Reports No Symptoms Reported
Respiratory: Reports No Symptoms; Denies Cough
Cardiac: Reports No Symptoms; Denies Chest Pain
Abdomen/GI: Denies Diarrhea (resolved)
Musculoskeletal: Reports No Symptoms
Physical Exam
-
General: Well Developed and No Apparent Distress
HEENT: Normocephalic, Atraumatic, Moist Mucous Membranes and Other (port noted )
Respiratory: Decreased Breath Sounds
Cardiac: Regular Rhythm and S1/S2; Negative Murmur, Rub or Gallop
GI: Soft, Nontender, Nondistended and Normal Bowel Sounds; Negative Organomegaly
Musculoskeletal: No Clubbing, No Cyanosis and No Edema
Skin: Negative Rash
Neuro: Awake, Alert, Oriented, AO x 3, No Motor Deficits and Nonfocal/Grossly Intact
Psych: Calm
[2024-11-04] MEDS: NSS 1000 IV ×2 (09:56→19:52)
--- NOTE | 2024-11-04 11:58 | W.PN.NEPH.PH ---
Today's Communication / Plan
-
Maintain IV fluids at 100 cc/hr
Follow BMP
Assessment/Plan
-
IMP:
GE NOrovirus
Acute on chronic diastolic heart failure exacerbation
ALLYSON on CKD stage 4
Non Anion gap metabolic acidosis
Multiple myeloma-Follows with Dr. Silverio Carter [facility].
Hypertension
History of autologous stem cell transplant 2021
Anxiety/depression
h/o A. fib
Anemia
Hypogammaglobulinemia
History of compression fracture T11
Obesity
Sleep apnea
History of gout
PLan:
A/w acute CHF and GE Norovirus
ALLYSON-down to 4.2, likely from polyuria and prerenal etiology , in setting of postobstructive diuresis following stent placement
Urine output in excess of 6 L
Maintain IV fluid up to 100cc as uop outpacing input, weights down
left ureter stent placement by urology on 10/31,await biopsy, repeat US no hydro
Polyuria likely a function of post obstruction and loss of concentrating medullary gradient within kidney
continue to hold lasix, echo shows mod to severe MR , but uop > 6 liters and weights continue to drop
non gap met acidosis-monitor on po sodium bicarb
hopefully can escape HD this admit
low salt diet and no FR
follow daily wts and labs
d/w pt in detail
d/w primary and urology
-
-
Date of Service: November 04, 2024
CC / HPI / ROS
-
Chief Complaint:
CKD stage IV
Acute kidney injury
History of Present Illness:
Creatinine down at 4.2 polyuric over 6;lit
Hemodynamically stable
Status post left ureter stent placement on 10/31/2024
Review of Systems:
No fevers
no shortness of breath or chest pain
felt mild nausea during US
Polyuric greater than 6 L
Labs
-
Labs:
WBC 11.4 10^3/uL (4.8-10.8) H 11/04/24 04:27
RBC 2.57 10^6/uL (4.70-6.10) L 11/04/24 04:27
Hgb 8.6 g/dL (13.0-18.0) L 11/04/24 04:27
Hct 25.3 % (39.0-52.0) L 11/04/24 04:27
Plt Count 163 10^3/uL (130-400) 11/04/24 04:27
Sodium 135 mmol/L (135-145) 11/04/24 04:27
Potassium 3.7 mmol/L (3.5-5.1) 11/04/24 04:27
Chloride 102 mmol/L (98-107) 11/04/24 04:27
Carbon Dioxide 18 mmol/L (22-30) L 11/04/24 04:27
BUN 76 mg/dl (9-20) H 11/04/24 04:27
Creatinine 4.2 mg/dL (0.7-1.3) H* 11/04/24 04:27
eGFR 15.21 11/04/24 04:27
Glucose 110 mg/dl (70-99) H 11/04/24 04:27
Calcium 8.4 mg/dl (8.4-10.2) 11/04/24 04:27
Kgo-M-Pahdjmdroxf Pept > 52535 pg/ml 10/27/24 17:33
Albumin 3.8 g/dl (3.5-5.0) 10/28/24 08:33
Physical Exam
-
Vital Signs:
Vital Signs
Temp Pulse Resp BP Pulse Ox
97.7 F 65 16 146/87 97
11/04/24 06:57 11/04/24 08:30 11/04/24 06:57 11/04/24 08:30 11/04/24 06:57
Cardiovascular:: Regular rate and rhythm
Respiratory:: Bilateral: CTA
Lung Excursion:: Normal
Extremity Edema:: None: Bilateral:
Dugan Catheter: No
--- NOTE | 2024-11-04 12:07 | W.PN.URO.CBU ---
Today's Communication / Plan
-
no gu intervention
Assessment / Plan
-
ALLYSON CRTREAT 3 TO 4 LEFT HYDRO NO STONE STENTED good urine output but creratine still 4.2 an improved awaoit path and cytology
Diagnosis
-
Date of Service: November 04, 2024
-
Patient Diagnosis:
Post Op Day:
Patient Diagnosis:
Post Op Day:
Patient Diagnosis:
Post Op Day:
Patient Diagnosis:ALLYSON WITH CKD BUT NEW LEFT HYDRO DUE TO OBSTRUCTION NON STONE ? PAP NECROSIS TCC, HEMATOMA?
Post Op Day:
Subjective
-
feels well jj stent non issue
Objective
-
Vital Signs
Temp Pulse Resp BP Pulse Ox
97.7 F 65 16 146/87 97
11/04/24 06:57 11/04/24 08:30 11/04/24 06:57 11/04/24 08:30 11/04/24 06:57
Intake and Output
11/03/24 11/04/24 11/05/24
06:59 06:59 06:59
Intake Total 3200 / 3200 5420 / 5420
Output Total 5305 / 5305 5475 / 5475 800 / 800
Balance -2105 / -2105 -55 / -55 -800 / -800
Intake:
Oral fluids 1300 / 1300 3480 / 3480
IV fluids (Total) 1900 / 1900 1940 / 1940
Output:
Urine, Voided 5305 / 5305 5475 / 5475 800 / 800
Laboratory Results
11/04/24 04:27
11/04/24 04:27
Review of Systems
-
: Dark Urine
Physical Exam
-
General - well developed, well nourished, no acute distress
Chest - clear bilaterally
Abdomen - soft, non-tender, positive bowel sounds, no CVAT, no incisional pain or distention
Genitalia - normal
Rectal - normal
Skin - warm & dry with no rash
Neuro - AOx3, no motor deficits
Extremities - no clubbing, no cyanosis, no edema
Incision - clean, dry
Dressing - clean, dry, intact
Care Review
Data Reviewed
Discussed with: Internal Medicine (nephrology)
[2024-11-04 16:00] VITALS: BP 135/76
[2024-11-04] MEDS: BYSTOLIC 20 MG PO (22:05)
[2024-11-04] MEDS: LEXAPRO 10 MG PO (22:05)
[2024-11-04] MEDS: MELATONIN 5 MG PO (22:05)
[2024-11-04 23:17] VITALS: BP 131/68
[2024-11-05] MEDS: NSS 1000 IV (05:25)
[2024-11-05 06:00] VITALS: BMI 29.1
[2024-11-05 06:21] LABS: Blood Urea Nitrogen 71 mg/dl (9-20); Calcium 8.7 mg/dl (8.4-10.2); Carbon Dioxide 19 mmol/L (22-30); Chloride 105 mmol/L (98-107); Estimated Creatinine Clearance 18 ml/min; Glucose 108 mg/dl (70-99); Potassium 3.6 mmol/L (3.5-5.1); Sodium 136 mmol/L (135-145); eGFR 15.21
[2024-11-05 07:00] VITALS: BMI 29.1
[2024-11-05 08:00] VITALS: BP 147/80
--- NOTE | 2024-11-05 08:25 | W.PN.HOSP.TC ---
Today's Communication/Plan
-
await decision on dialysis, for now continue IVF supplement
Assessment / Plan
Assessment / Plan
IMPRESSION:
64 y.o male with MM on maintenance therapy, stated to be in remission here with ALLYSON on CKD and volume overload with pulmonary edema, peripheral edema, uncontrolled hypertension BP now 141/81-146/87.
Acute on chronic diastolic heart failure exacerbation
Pulmonary edema resolved
Acute hypoxic respiratory insufficiency
- Cr was trending up. Hold lasix. Creat 4.2-->3.9-->4.3-->4.6-->4.4-->4.2-->4.2
Dr[address] Turner concerned rising Creat could be from pt being behind in fluid. IVF supplement started. Discussed with Dr. Vidales, wants to see what Creat does over next 24 hrs, but for now to continue IVF, concerned about high urine output
- monitor daily weights and i/os
- continue beta blockade, Procardia and hydralazine for now
- Probnp was >30135 on admission
- echo: Normal left ventricular size and function. Normal left ventricular systolic
function. Normal regional wall motion. LV ejection fraction is 52% by
volumetric assessment.
Mitral valve opens normally. Thickened mitral valve leaflets. There is
moderate-severe mitral regurgitation with posterior eccentric jet.
Trileaflet aortic valve. Thickened aortic valve with normal leaflet excursion.
Mild aortic regurgitation.
Tricuspid valve opens normally. Trace tricuspid regurgitation. Estimated
pulmonary artery pressure of 66 mmHg. Assuming a right atrial pressure of 8
mmHg.
Mild to moderately dilated aortic root. Sinus of Valsalva measures 4.4 cm.
Sinotubular junction measures 3.4 cm. Ascending aorta measures 4.0 cm.
Since echo May 2024, MR has worsened from mild to moderate-severe. PA
systolic pressure is increased from 20-25 mmHg to 66 mmHg.
ALLYSON on CKD stage 4
Anion gap metabolic acidosis
Hyperkalemia better 5.0-->3.7-->3.8-->3.[address] scan as per Dr. Vidales: 1. MODERATE LEFT HYDRONEPHROSIS secondary to a 9 mm obstructing high attenuation intraluminal lesion in the proximal left ureter. Diagnostic possibilities are (1) a left ureteral blood clot, (2) a left ureteral
mass (urothelial carcinoma), (3) an inflammatory or infectious mass (debris, fungal infection, or amyloidosis), or (4) an unusual relatively low-attenuation ureteral stone.
2. MODERATE to SEVERE CHRONIC BILATERAL RENAL DISEASE.
3. Round 1.1 cm high attenuation mass in the midpole of the left kidney (probably a hemorrhagic cyst and less likely malignancy).
4. Mild chronic pancolitis (either secondary to previous infection or inflammatory bowel disease).
5. Moderate diverticulosis in the descending and sigmoid colon.
6. Moderate-sized right and small left pleural effusions.
7. Multiple lytic lesions in the spine and pelvis (probably MULTIPLE MYELOMA given the patient's history).
8. Bilateral hip arthroplasties in place.
-requested primary senior principal process engineer Op records
-bladder scan per the protocol
-States baseline around 3-3.2.
- MM in remission per patient. 08/17 Arterial renal duplex with no renal artery stenosis bilaterally
-Check urine lytes. bladder scan protocol. US renal/bladder: 1. Mild distention of the left intrarenal collecting system.
2. SEVERE CHRONIC BILATERAL RENAL DISEASE.
Urology was consulted regarding left hydro. Had RGP and stent placement 10/31. Pathology still pending
Reviewed situation with Dr. Vidales, for now does not believe appropriate to dc with high urine output. Discussed with patient. Total output remains 5400 cc/day
Discussed with pt, await decision on need for dialysis
HTN
back on usual BP Rx with addition of Procardia XL 30 bid, significantly improved
Multiple myeloma
-Last chemotherapy regimen was in September. [facility]. Is on chronic maintenance therapy monthly with Darzlex, was due this week, but did not receive due to rising Creat and admission to hospital.
Underwent autologous stem cell transplant 2021
Anemia
multifactorial hgb 8.8-->8.1-->8.4-->8.1-->8.2-->8.6
Nausea, vomiting and diarrhea likely secondary to viral gastroenteritis norovirus noted to be positive on 10/28
-symptoms appear to have resolved
DVT PPX - heparin sq
Code status - full code
Anticipated Discharge: > 48 hours
Subjective/Interval History
-
Date of Service: November 05, 2024
Awake, alert, still with freq urination
Objective Data
-
Labs:
Laboratory Results
11/05/24
05:38
Sodium 136
Potassium 3.6
Chloride 105
Carbon Dioxide 19 L
BUN 71 H
Creatinine 4.2 H*
Glucose 108 H
Calcium 8.7
Vital Signs:
Vital Signs
Temp Pulse Resp BP Pulse Ox
97.9 F 65 18 131/68 95
11/04/24 23:17 11/04/24 23:17 11/04/24 23:17 11/04/24 23:17 11/04/24 23:17
I&O
11/04/24 11/05/24 11/06/24
06:59 06:59 06:59
Intake Total 5420 / 5420 2700 / 2700
Output Total 5475 / 5475 5400 / 5400
Balance -55 / -55 -2700 / -2700
Review of Systems
-
History Source: Patient and Coordinated Provider
Constitutional: Denies Fever
EENT: Reports No Symptoms Reported
Respiratory: Reports No Symptoms; Denies Cough
Cardiac: Reports No Symptoms; Denies Chest Pain
Abdomen/GI: Denies Diarrhea (resolved)
Musculoskeletal: Reports No Symptoms
Physical Exam
-
General: Well Developed and No Apparent Distress
HEENT: Normocephalic, Atraumatic, Moist Mucous Membranes and Other (port noted )
Respiratory: Decreased Breath Sounds
Cardiac: Regular Rhythm and S1/S2; Negative Murmur, Rub or Gallop
GI: Soft, Nontender, Nondistended and Normal Bowel Sounds; Negative Organomegaly
Musculoskeletal: No Clubbing, No Cyanosis and No Edema
Skin: Negative Rash
Neuro: Awake, Alert, Oriented, AO x 3, No Motor Deficits and Nonfocal/Grossly Intact
Psych: Calm
[2024-11-05] MEDS: PROCARDIA XL (EXTENDED RELEASE) 30 MG PO ×2 (09:13→19:52)
[2024-11-05] MEDS: HEPARIN 5000 UNITS SC ×3 (09:14→23:09)
[2024-11-05] MEDS: VITAMIN B-6 100 MG PO (09:14)
[2024-11-05] MEDS: APRESOLINE 75 MG PO ×2 (09:14→19:51)
[2024-11-05] MEDS: SODIUM BICARBONATE 650 MG PO ×3 (09:15→23:08)
[2024-11-05] MEDS: VALTREX 500 MG PO (09:15)
--- NOTE | 2024-11-05 10:35 | W.PN.NEPH.PH ---
Today's Communication / Plan
-
DC IV fluid
Follow BMP
Check urine Osmolality
Assessment/Plan
-
IMP:
GE NOrovirus
Acute on chronic diastolic heart failure exacerbation
ALLYSON on CKD stage 4
Non Anion gap metabolic acidosis
Multiple myeloma-Follows with Dr. Silverio Carter [facility] [place].
Hypertension
History of autologous stem cell transplant 2021
Anxiety/depression
h/o A. fib
Anemia
Hypogammaglobulinemia
History of compression fracture T11
Obesity
Sleep apnea
History of gout
PLan:
A/w acute CHF and GE Norovirus
ALLYSON-down to 4.2, likely from polyuria and prerenal etiology , in setting of postobstructive diuresis following stent placement
Urine output in excess of 4 L
Will DC IV fluids and assess true urine output
Will check urine osmolality in setting of polyuria
left ureter stent placement by urology on 10/31,await biopsy, repeat US no hydro
Polyuria likely a function of post obstruction and loss of concentrating medullary gradient within kidney
continue to hold lasix, echo shows mod to severe MR , but uop > 4 liters and weights continue to drop
non gap met acidosis-monitor on po sodium bicarb
hopefully can escape HD this admit
low salt diet and no FR
follow daily wts and labs
d/w pt in detail
-
-
Date of Service: November 05, 2024
CC / HPI / ROS
-
Chief Complaint:
CKD stage IV
Acute kidney injury
History of Present Illness:
Creatinine down at 4.2 polyuric over 4.6 liters
Hemodynamically stable
Status post left ureter stent placement on 10/31/2024
Review of Systems:
No fevers
no shortness of breath or chest pain
felt mild nausea during US
Polyuric greater than 4 L
Weights down
Labs
-
Labs:
WBC 11.4 10^3/uL (4.8-10.8) H 11/04/24 04:27
RBC 2.57 10^6/uL (4.70-6.10) L 11/04/24 04:27
Hgb 8.6 g/dL (13.0-18.0) L 11/04/24 04:27
Hct 25.3 % (39.0-52.0) L 11/04/24 04:27
Plt Count 163 10^3/uL (130-400) 11/04/24 04:27
Sodium 136 mmol/L (135-145) 11/05/24 05:38
Potassium 3.6 mmol/L (3.5-5.1) 11/05/24 05:38
Chloride 105 mmol/L (98-107) 11/05/24 05:38
Carbon Dioxide 19 mmol/L (22-30) L 11/05/24 05:38
BUN 71 mg/dl (9-20) H 11/05/24 05:38
Creatinine 4.2 mg/dL (0.7-1.3) H* 11/05/24 05:38
eGFR 15.21 11/05/24 05:38
Glucose 108 mg/dl (70-99) H 11/05/24 05:38
Calcium 8.7 mg/dl (8.4-10.2) 11/05/24 05:38
Itp-Z-Musehekytsa Pept > 76365 pg/ml 10/27/24 17:33
Albumin 3.8 g/dl (3.5-5.0) 10/28/24 08:33
Physical Exam
-
Vital Signs:
Vital Signs
Temp Pulse Resp BP Pulse Ox
97.9 F 59 16 147/80 96
11/05/24 08:00 11/05/24 08:00 11/05/24 08:00 11/05/24 08:00 11/05/24 08:00
Cardiovascular:: Regular rate and rhythm
Respiratory:: Bilateral: CTA
Lung Excursion:: Normal
Abdomen:: Nontender and Soft
Bowel Sounds:: Normal
Extremity Edema:: None: Bilateral:
Dugan Catheter: No
[2024-11-05 15:03] LABS: Osmolality Urine 268 mOsm/kg (300-900)
[2024-11-05 16:30] VITALS: BP 152/73
[2024-11-05 23:06] VITALS: BP 134/69
[2024-11-05] MEDS: BYSTOLIC 20 MG PO (23:08)
[2024-11-05] MEDS: LEXAPRO 10 MG PO (23:08)
[2024-11-05] MEDS: MELATONIN PO ×2 (23:08→23:23)
[2024-11-06 04:42] LABS: % Basophils 0.2 % (0-2); % Eosinophils 1.1 % (0-6); % Immature Granulocytes 0.7 % (0-0.5); % Monocytes 7.5 % (1.7-9.3); % Neutrophils 86.5 % (42.2-75.2); Absolute Eosinophils 0.1 10^3/uL (0-0.7); Absolute Immature Granulocytes 0.1 10^3/uL (0-0.05); Absolute Lymphocytes 0.5 10^3/uL (1.2-3.4); Absolute Neutrophils 11.3 10^3/uL (1.4-6.5); Hematocrit 27.2 % (39.0-52.0); Hemoglobin 9.2 g/dL (13.0-18.0); Mean Corp Hgb Conc. 33.8 g/dL (33.0-37.0); Mean Corpuscular Hgb 33.3 pg (27.0-31.0); Mean Corpuscular Volume 98.6 fL (80.0-94.0); Mean Platelet Volume 10.9 fL (7.4-10.4); Nucleated Red Blood Cells % 0 % (-); Platelet Count 175 10^3/uL (130-400); Red Blood Cell Count 2.76 10^6/uL (4.70-6.10); Red Cell Dist. Width 14.8 % (11.5-14.5)
[2024-11-06 05:07] LABS: Blood Urea Nitrogen 74 mg/dl (9-20); Carbon Dioxide 20 mmol/L (22-30); Chloride 103 mmol/L (98-107); Estimated Creatinine Clearance 18 ml/min; Glucose 109 mg/dl (70-99); Potassium 3.6 mmol/L (3.5-5.1); Sodium 137 mmol/L (135-145); eGFR 15.21
[2024-11-06 05:14] VITALS: BMI 29.2
[2024-11-06 07:00] VITALS: BMI 29.2
[2024-11-06 07:40] VITALS: BP 160/90
[2024-11-06] MEDS: SODIUM BICARBONATE 650 MG PO ×3 (08:18→21:35)
[2024-11-06] MEDS: PROCARDIA XL (EXTENDED RELEASE) 30 MG PO ×2 (08:18→20:11)
[2024-11-06] MEDS: APRESOLINE 75 MG PO ×2 (08:19→20:11)
[2024-11-06] MEDS: VALTREX 500 MG PO (08:19)
[2024-11-06] MEDS: VITAMIN B-6 100 MG PO (08:19)
[2024-11-06] MEDS: HEPARIN 5000 UNITS SC ×3 (08:20→23:18)
[2024-11-06] MEDS: ROCALTROL 0.25 MCG PO (08:22)
[2024-11-06 09:57] VITALS: BMI 29.2
--- NOTE | 2024-11-06 10:00 | W.PN.NEPH.PH ---
Today's Communication / Plan
-
Monitor urine output if continues to decrease throughout the day then we could consider discharging later today from a renal standpoint
Assessment/Plan
-
IMP:
GE NOrovirus
Acute on chronic diastolic heart failure exacerbation
ALLYSON on CKD stage 4
Non Anion gap metabolic acidosis
Multiple myeloma-Follows with Dr. Silverio Carter [facility] [place].
Hypertension
History of autologous stem cell transplant 2021
Anxiety/depression
h/o A. fib
Anemia
Hypogammaglobulinemia
History of compression fracture T11
Obesity
Sleep apnea
History of gout
PLan:
A/w acute CHF and GE Norovirus
ALLYSON-down to 4.2, likely from polyuria and prerenal etiology , in setting of postobstructive diuresis following stent placement
Urine output 3.4 L somewhat decreased from 5.4 L
Urinalysis not consistent with DI. Or solute diuresis.
I would consider discharge with stable creatinine over the next 24 hours
left ureter stent placement by urology on 10/31,await biopsy, repeat US no hydro
Polyuria likely a function of post obstruction and loss of concentrating medullary gradient within kidney
continue to hold lasix, echo shows mod to severe MR
non gap met acidosis-monitor on po sodium bicarb
hopefully can escape HD this admit
low salt diet and no FR
follow daily wts and labs
d/w pt in detail
-
-
Date of Service: November 06, 2024
CC / HPI / ROS
-
Chief Complaint:
CKD stage IV
Acute kidney injury
History of Present Illness:
Creatinine down at 4.2 polyuric over 4.6 liters
Hemodynamically stable
Status post left ureter stent placement on 10/31/2024
Review of Systems:
No fevers
no shortness of breath or chest pain
felt mild nausea during US
Weights down
Labs
-
Labs:
WBC 13.0 10^3/uL (4.8-10.8) H 11/06/24 04:19
RBC 2.76 10^6/uL (4.70-6.10) L 11/06/24 04:19
Hgb 9.2 g/dL (13.0-18.0) L 11/06/24 04:19
Hct 27.2 % (39.0-52.0) L 11/06/24 04:19
Plt Count 175 10^3/uL (130-400) 11/06/24 04:19
Sodium 137 mmol/L (135-145) 11/06/24 04:19
Potassium 3.6 mmol/L (3.5-5.1) 11/06/24 04:19
Chloride 103 mmol/L (98-107) 11/06/24 04:19
Carbon Dioxide 20 mmol/L (22-30) L 11/06/24 04:19
BUN 74 mg/dl (9-20) H 11/06/24 04:19
Creatinine 4.2 mg/dL (0.7-1.3) H* 11/06/24 04:19
eGFR 15.21 11/06/24 04:19
Glucose 109 mg/dl (70-99) H 11/06/24 04:19
Calcium 9.0 mg/dl (8.4-10.2) 11/06/24 04:19
Ncy-X-Mkkvcqulgfy Pept > 36260 pg/ml 10/27/24 17:33
Albumin 3.8 g/dl (3.5-5.0) 10/28/24 08:33
Physical Exam
-
Vital Signs:
Vital Signs
Temp Pulse Resp BP Pulse Ox
97.9 F 58 18 160/90 96
11/06/24 07:40 11/06/24 08:18 11/06/24 07:40 11/06/24 08:18 11/06/24 07:40
Cardiovascular:: Regular rate and rhythm
Respiratory:: Bilateral: CTA
Lung Excursion:: Normal
Abdomen:: Nontender and Soft
Bowel Sounds:: Normal
Extremity Edema:: None: Bilateral:
Dugan Catheter: No
--- NOTE | 2024-11-06 12:40 | CM ---
Reviewed the chart notes. CM continues to be available to patient/family and is monitoring medical plan for needs at discharge.
Plan: Discharge to home when medically stable. No needs anticipated at this time.
--- NOTE | 2024-11-06 12:50 | W.PN.URO.CBU ---
Today's Communication / Plan
-
no gu changes
Assessment / Plan
-
ALLYSON CRTREAT 3 TO 4 LEFT HYDRO NO STONE STENTED good urine output but creatinine still 4.2 path inflammatory no cancer plan leave stent for now
Diagnosis
-
Date of Service: November 06, 2024
-
Patient Diagnosis:
Post Op Day:
Patient Diagnosis:
Post Op Day:
Patient Diagnosis:
Post Op Day:
Patient Diagnosis:
Post Op Day:
Patient Diagnosis:ALLYSON WITH CKD BUT NEW LEFT HYDRO DUE TO OBSTRUCTION path reteurned as inflammatory no cancer
Post Op Day:
Subjective
-
no gu problems
Objective
-
Vital Signs
Temp Pulse Resp BP Pulse Ox
97.9 F 58 18 160/90 96
11/06/24 07:40 11/06/24 08:18 11/06/24 07:40 11/06/24 08:18 11/06/24 07:40
Intake and Output
11/05/24 11/06/24 11/07/24
06:59 06:59 06:59
Intake Total 2700 / 2700 2040 / 2040
Output Total 5400 / 5400 3440 / 3440
Balance -2700 / -2700 -1400 / -1400
Intake:
Oral fluids 480 / 480 1440 / 1440
IV fluids (Total) 2220 / 2220 600 / 600
Output:
Urine, Voided 5400 / 5400 3440 / 3440
Laboratory Results
11/06/24 04:19
11/06/24 04:19
Review of Systems
-
: Urgency
Physical Exam
-
General - well developed, well nourished, no acute distress
Chest - clear bilaterally
Abdomen - soft, non-tender, positive bowel sounds, no CVAT, no incisional pain or distention
Genitalia - normal
Rectal - normal
Skin - warm & dry with no rash
Neuro - AOx3, no motor deficits
Extremities - no clubbing, no cyanosis, no edema
Incision - clean, dry
Dressing - clean, dry, intact
Care Review
Data Reviewed
Discussed with: Internal Medicine (nephrology)
--- NOTE | 2024-11-06 13:29 | W.PN.HOSP.TC ---
Today's Communication/Plan
-
monitor UOP
Nephro recs
trend cr
cont with po bicarb
Assessment / Plan
Assessment / Plan
IMPRESSION:
64 y.o male with MM on maintenance therapy, stated to be in remission here with ALLYSON on CKD and volume overload with pulmonary edema, peripheral edema, uncontrolled hypertension BP now 141/81-146/87.
Acute on chronic diastolic heart failure exacerbation
Pulmonary edema resolved
Acute hypoxic respiratory insufficiency
- Cr was trending up. Hold lasix. Creat 4.2-->3.9-->4.3-->4.6-->4.4-->4.2-->4.2
- monitor daily weights and i/os
- continue beta blockade, Procardia and hydralazine for now
- Probnp was >13021 on admission
- echo: Normal left ventricular size and function. Normal left ventricular systolic
function. Normal regional wall motion. LV ejection fraction is 52% by
volumetric assessment.
Mitral valve opens normally. Thickened mitral valve leaflets. There is
moderate-severe mitral regurgitation with posterior eccentric jet.
Trileaflet aortic valve. Thickened aortic valve with normal leaflet excursion.
Mild aortic regurgitation.
Tricuspid valve opens normally. Trace tricuspid regurgitation. Estimated
pulmonary artery pressure of 66 mmHg. Assuming a right atrial pressure of 8
mmHg.
Mild to moderately dilated aortic root. Sinus of Valsalva measures 4.4 cm.
Sinotubular junction measures 3.4 cm. Ascending aorta measures 4.0 cm.
Since echo May 2024, MR has worsened from mild to moderate-severe. PA
systolic pressure is increased from 20-25 mmHg to 66 mmHg.
ALLYSON on CKD stage 4
Anion gap metabolic acidosis
Hyperkalemia better 5.0-->3.7-->3.8-->3.[address] scan as per Dr. Vidales: 1. MODERATE LEFT HYDRONEPHROSIS secondary to a 9 mm obstructing high attenuation intraluminal lesion in the proximal left ureter. Diagnostic possibilities are (1) a left ureteral blood clot, (2) a left ureteral
mass (urothelial carcinoma), (3) an inflammatory or infectious mass (debris, fungal infection, or amyloidosis), or (4) an unusual relatively low-attenuation ureteral stone.
2. MODERATE to SEVERE CHRONIC BILATERAL RENAL DISEASE.
3. Round 1.1 cm high attenuation mass in the midpole of the left kidney (probably a hemorrhagic cyst and less likely malignancy).
4. Mild chronic pancolitis (either secondary to previous infection or inflammatory bowel disease).
5. Moderate diverticulosis in the descending and sigmoid colon.
6. Moderate-sized right and small left pleural effusions.
7. Multiple lytic lesions in the spine and pelvis (probably MULTIPLE MYELOMA given the patient's history).
8. Bilateral hip arthroplasties in place.
-requested primary dba manager Op records
-bladder scan per the protocol
-States baseline around 3-3.2.
- MM in remission per patient. 08/17 Arterial renal duplex with no renal artery stenosis bilaterally
-Check urine lytes. bladder scan protocol. US renal/bladder: 1. Mild distention of the left intrarenal collecting system.
2. SEVERE CHRONIC BILATERAL RENAL DISEASE.
Urology was consulted regarding left hydro. Had RGP and stent placement 10/31. Cytology with Rare clusters of atypical urothelial cells in a background of blood. Note: A reactive process is favored. Clinical correlation is recommended
around 3400 cc of urinary output.
HTN Primary
back on usual BP Rx with addition of Procardia XL 30 bid, continue with hydralazine and Bystolic
Multiple myeloma
-Last chemotherapy regimen was in September. Follows with Dr. Silverio Carter [facility]. Is on chronic maintenance therapy monthly with Darzlex, was due this week, but did not receive due to rising Creat and admission to hospital.
Underwent autologous stem cell transplant 2021
Anemia likely secondary to multiple myeloma.
Monitor. Transfuse as needed.
Nausea, vomiting and diarrhea likely secondary to viral gastroenteritis norovirus noted to be positive on 10/28
-symptoms appear to have resolved
Leukocytosis secondary to viral gastroenteritis due to norovirus versus reactive
afebrile. monitor for now
If spikes fever check UA with urine culture, blood cultures and chest x-ray
DVT PPX - heparin sq
Code status - full code
Anticipated Discharge: Within 24 hours
Subjective/Interval History
-
Date of Service: November 06, 2024
tolerating diet
afebrile
voiding significant amount of urine
Objective Data
-
Labs:
Laboratory Results
11/06/24
04:19
WBC 13.0 H
Hgb 9.2 L
Hct 27.2 L
Plt Count 175
Sodium 137
Potassium 3.6
Chloride 103
Carbon Dioxide 20 L
BUN 74 H
Creatinine 4.2 H*
Glucose 109 H
Calcium 9.0
Vital Signs:
Vital Signs
Temp Pulse Resp BP Pulse Ox
97.9 F 58 18 160/90 96
11/06/24 07:40 11/06/24 08:18 11/06/24 07:40 11/06/24 08:18 11/06/24 07:40
I&O
11/05/24 11/06/24 11/07/24
06:59 06:59 06:59
Intake Total 2700 / 2700 2039 / 2039
Output Total 5400 / 5400 3440 / 3440
Balance -2700 / -2700 -1400 / -1400
Physical Exam
-
General: Well Developed and No Apparent Distress
HEENT: Normocephalic, Atraumatic, Moist Mucous Membranes and Other (port noted )
Respiratory: Decreased Breath Sounds; Negative Accessory Resp Muscle Use
Cardiac: Regular Rhythm and S1/S2; Negative Murmur, Rub or Gallop
GI: Soft, Nontender, Nondistended and Normal Bowel Sounds; Negative Organomegaly
Musculoskeletal: No Clubbing, No Cyanosis and No Edema
Skin: Negative Rash
Neuro: Awake, Alert, Oriented, AO x 3, No Motor Deficits and Nonfocal/Grossly Intact
Psych: Calm
Data Reviewed
-
Total Time Spent with Patient (in minutes): 55
[2024-11-06 15:34] VITALS: BP 148/83
[2024-11-06] MEDS: BYSTOLIC 20 MG PO (21:35)
[2024-11-06] MEDS: LEXAPRO 10 MG PO (21:35)
[2024-11-06] MEDS: MELATONIN PO (21:35)
[2024-11-06 22:54] VITALS: BP 132/68
[2024-11-07 06:00] VITALS: BMI 27.9
[2024-11-07 06:13] LABS: Blood Urea Nitrogen 74 mg/dl (9-20); Carbon Dioxide 20 mmol/L (22-30); Chloride 100 mmol/L (98-107); Estimated Creatinine Clearance 18 ml/min; Glucose 105 mg/dl (70-99); Potassium 3.6 mmol/L (3.5-5.1); Sodium 134 mmol/L (135-145); eGFR 15.21
[2024-11-07 07:35] VITALS: BP 146/87
[2024-11-07] MEDS: HEPARIN 5000 UNITS SC (08:43)
[2024-11-07] MEDS: VALTREX 500 MG PO (08:43)
[2024-11-07] MEDS: APRESOLINE 75 MG PO (08:43)
[2024-11-07] MEDS: SODIUM BICARBONATE 650 MG PO (08:44)
[2024-11-07] MEDS: PROCARDIA XL (EXTENDED RELEASE) 30 MG PO (08:44)
[2024-11-07] MEDS: VITAMIN B-6 100 MG PO (08:44)
[2024-11-07 08:56] LABS: % Basophils 0.1 % (0-2); % Eosinophils 0.5 % (0-6); % Immature Granulocytes 0.6 % (0-0.5); % Lymphocytes 2.5 % (20.5-51.1); % Monocytes 6.9 % (1.7-9.3); % Neutrophils 89.4 % (42.2-75.2); Absolute Eosinophils 0.1 10^3/uL (0-0.7); Absolute Immature Granulocytes 0.1 10^3/uL (0-0.05); Absolute Lymphocytes 0.3 10^3/uL (1.2-3.4); Absolute Monocytes 0.9 10^3/uL (0.1-0.6); Absolute Neutrophils 12.1 10^3/uL (1.4-6.5); Hematocrit 27.7 % (39.0-52.0); Hemoglobin 9.5 g/dL (13.0-18.0); Mean Corp Hgb Conc. 34.3 g/dL (33.0-37.0); Mean Corpuscular Hgb 33.6 pg (27.0-31.0); Mean Corpuscular Volume 97.9 fL (80.0-94.0); Mean Platelet Volume 10.3 fL (7.4-10.4); Nucleated Red Blood Cells % 0 % (-); Platelet Count 142 10^3/uL (130-400); Red Blood Cell Count 2.83 10^6/uL (4.70-6.10); Red Cell Dist. Width 14.6 % (11.5-14.5); White Blood Cell Count 13.6 10^3/uL (4.8-10.8)
--- NOTE | 2024-11-07 11:24 | W.PN.HOSP.TC ---
Addendum entered and electronically signed by Abler Ahumada MD 11/07/24 16:02:
Patient eager to get discharged home today. Creatinine of 4.2 for the past 4 days. Stabilizing of UOP. Tolerating diet. Patient afebrile.
Discussed case with nephrology. Recommending torsemide 40 mg daily and okay for discharge home.
Above findings were discussed in person with patient who was agreeable to medication changes. All patient questions were answered. Patient is to follow-up outpatient with repeat blood work and follow-up with nephrology and urology.
More than 30 minutes spent in discharge including
Final examination of the patient
Summarizing hospital stay
Instructions for continuing care to all relevant caregivers
Preparation of discharge records, prescriptions, and referral forms
Total time spent (in minutes): 55
Original Note:
Today's Communication/Plan
-
nephro recs
monitor BP
Monitor UOP
Assessment / Plan
Assessment / Plan
IMPRESSION:
64 y.o male with MM on maintenance therapy, stated to be in remission here with ALLYSON on CKD and volume overload with pulmonary edema, peripheral edema, uncontrolled hypertension BP now 141/81-146/87.
Acute on chronic diastolic heart failure exacerbation
Pulmonary edema resolved
Acute hypoxic respiratory insufficiency
- Cr was trending up. Hold lasix. Creat 4.2-->3.9-->4.3-->4.6-->4.4-->4.2-->4.2
- monitor daily weights and i/os
- continue beta blockade, Procardia and hydralazine for now
- Probnp was >[id number] on admission
- echo: Normal left ventricular size and function. Normal left ventricular systolic
function. Normal regional wall motion. LV ejection fraction is 52% by
volumetric assessment.
Mitral valve opens normally. Thickened mitral valve leaflets. There is
moderate-severe mitral regurgitation with posterior eccentric jet.
Trileaflet aortic valve. Thickened aortic valve with normal leaflet excursion.
Mild aortic regurgitation.
Tricuspid valve opens normally. Trace tricuspid regurgitation. Estimated
pulmonary artery pressure of 66 mmHg. Assuming a right atrial pressure of 8
mmHg.
Mild to moderately dilated aortic root. Sinus of Valsalva measures 4.4 cm.
Sinotubular junction measures 3.4 cm. Ascending aorta measures 4.0 cm.
Since echo May 2024, MR has worsened from mild to moderate-severe. PA
systolic pressure is increased from 20-25 mmHg to 66 mmHg.
ALLYSON on CKD stage 4
Anion gap metabolic acidosis
Hyperkalemia better 5.0-->3.7-->3.8-->3.[address] scan as per Dr. Vidales: 1. MODERATE LEFT HYDRONEPHROSIS secondary to a 9 mm obstructing high attenuation intraluminal lesion in the proximal left ureter. Diagnostic possibilities are (1) a left ureteral blood clot, (2) a left ureteral
mass (urothelial carcinoma), (3) an inflammatory or infectious mass (debris, fungal infection, or amyloidosis), or (4) an unusual relatively low-attenuation ureteral stone.
2. MODERATE to SEVERE CHRONIC BILATERAL RENAL DISEASE.
3. Round 1.1 cm high attenuation mass in the midpole of the left kidney (probably a hemorrhagic cyst and less likely malignancy).
4. Mild chronic pancolitis (either secondary to previous infection or inflammatory bowel disease).
5. Moderate diverticulosis in the descending and sigmoid colon.
6. Moderate-sized right and small left pleural effusions.
7. Multiple lytic lesions in the spine and pelvis (probably MULTIPLE MYELOMA given the patient's history).
8. Bilateral hip arthroplasties in place.
-requested primary tribal delegate Op records
-bladder scan per the protocol
-States baseline around 3-3.2.
- MM in remission per patient. 08/17 Arterial renal duplex with no renal artery stenosis bilaterally
-Check urine lytes. bladder scan protocol. US renal/bladder: 1. Mild distention of the left intrarenal collecting system.
2. SEVERE CHRONIC BILATERAL RENAL DISEASE.
Urology was consulted regarding left hydro. Had RGP and stent placement 10/31. Cytology with Rare clusters of atypical urothelial cells in a background of blood. Note: A reactive process is favored. Clinical correlation is recommended
around 2900 cc of urinary output.
UOP decreased. Lost 12kg. Cr remains at 4.2
Await nephro recs.
HTN Primary
back on usual BP Rx with addition of Procardia XL 30 bid, continue with hydralazine and Bystolic
Multiple myeloma
-Last chemotherapy regimen was in September. Follows with Dr. Silverio [facility]. Is on chronic maintenance therapy monthly with Darzlex, was due this week, but did not receive due to rising Creat and admission to hospital.
Underwent autologous stem cell transplant 2021
Anemia likely secondary to multiple myeloma.
Monitor. Transfuse as needed.
Nausea, vomiting and diarrhea likely secondary to viral gastroenteritis norovirus noted to be positive on 10/28
-symptoms appear to have resolved
Leukocytosis secondary to viral gastroenteritis due to norovirus versus reactive
afebrile. monitor for now
If spikes fever check UA with urine culture, blood cultures and chest x-ray
denies dysuria, cough, diarrhea. No rash on body. Remains afebrile.
DVT PPX - heparin sq
Code status - full code
Anticipated Discharge: Today
Subjective/Interval History
-
Date of Service: November 07, 2024
passing increasing amount of urine
denies cough or diarrhea or dysuria
Objective Data
-
Labs:
Laboratory Results
11/07/24 11/07/24
05:12 08:45
WBC 13.6 H
Hgb 9.5 L
Hct 27.7 L
Plt Count 142
Sodium 134 L
Potassium 3.6
Chloride 100
Carbon Dioxide 20 L
BUN 74 H
Creatinine 4.2 H*
Glucose 105 H
Calcium 9.0
Vital Signs:
Vital Signs
Temp Pulse Resp BP Pulse Ox
97.7 F 60 16 146/87 97
11/07/24 07:35 11/07/24 08:43 11/07/24 07:35 11/07/24 08:43 11/07/24 08:52
I&O
11/06/24 11/07/24 11/08/24
06:59 06:59 06:59
Intake Total 2039 / 2039 1450 / 1450
Output Total 3440 / 3440 2900 / 2900
Balance -1400 / -1400 -1450 / -1450
Physical Exam
-
General: Well Developed and No Apparent Distress
HEENT: Normocephalic, Atraumatic, Moist Mucous Membranes and Other (port noted )
Respiratory: Decreased Breath Sounds; Negative Accessory Resp Muscle Use
Cardiac: Regular Rhythm and S1/S2; Negative Murmur, Rub or Gallop
GI: Soft, Nontender, Nondistended and Normal Bowel Sounds; Negative Organomegaly
Musculoskeletal: No Clubbing, No Cyanosis and No Edema
Skin: Negative Rash
Neuro: Awake, Alert, Oriented, AO x 3, No Motor Deficits and Nonfocal/Grossly Intact
Psych: Calm
Data Reviewed
-
Total Time Spent with Patient (in minutes): 55
--- NOTE | 2024-11-07 13:42 | CM ---
Addendum entered by Isidra Valdez RN 11/07/24 16:07:
CM spoke with the patient's spouse via telephone. Spouse will provide transportation home.
Original Note:
Reviewed the chart notes. CM continues to be available to patient/family and is monitoring medical plan for needs at discharge.
Plan: Discharge to home when medically stable. No anticipated needs identified at this time.
--- NOTE | 2024-11-07 14:25 | W.PN.URO.CBU ---
Today's Communication / Plan
-
ready for d/c
Assessment / Plan
-
ALLYSON CRTREAT 3 TO 4 LEFT HYDRO NO STONE STENTED good urine output but creatinine still 4.2 path inflammatory no cancer plan leave stent for now
Diagnosis
-
Date of Service: November 07, 2024
-
Patient Diagnosis:
Post Op Day:
Patient Diagnosis:
Post Op Day:
Patient Diagnosis:
Post Op Day:
Patient Diagnosis:
Post Op Day:
Patient Diagnosis:
Post Op Day:
Patient Diagnosis:ALLYSON WITH CKD BUT NEW LEFT HYDRO DUE TO OBSTRUCTION path reteurned as inflammatory no cancer
Post Op Day:
Subjective
-
tolerating stent
Objective
-
Vital Signs
Temp Pulse Resp BP Pulse Ox
97.7 F 60 16 146/87 97
11/07/24 07:35 11/07/24 08:43 11/07/24 07:35 11/07/24 08:43 11/07/24 08:52
Intake and Output
11/06/24 11/07/24 11/08/24
06:59 06:59 06:59
Intake Total 2040 / 2040 1450 / 1450
Output Total 3440 / 3440 2900 / 2900
Balance -1400 / -1400 -1450 / -1450
Intake:
Oral fluids 1440 / 1440 1450 / 1450
IV fluids (Total) 600 / 600
Output:
Urine, Voided 3440 / 3440 2900 / 2900
Laboratory Results
11/07/24 08:45
11/07/24 05:12
Review of Systems
-
: No Symptoms
Physical Exam
-
General - well developed, well nourished, no acute distress
Chest - clear bilaterally
Abdomen - soft, non-tender, positive bowel sounds, no CVAT, no incisional pain or distention
Genitalia - normal
Rectal - normal
Skin - warm & dry with no rash
Neuro - AOx3, no motor deficits
Extremities - no clubbing, no cyanosis, no edema
Incision - clean, dry
Dressing - clean, dry, intact
[2024-11-07 15:45] VITALS: BP 140/77
--- NOTE | 2024-11-07 15:58 | W.DCSUMMARY ---
Discharge Summary
Discharge Data
Date of Admission: 10/27/24
Date of Discharge: 11/07/24
-
Pending Results: No
Hospital Course
64-year-old male past medical history of multiple myeloma on chemotherapy, CKD stage IV, primary hypertension, anemia, who is presenting from home with complaints of shortness of breath. Patient was found to be in acute on chronic heart failure
exacerbation. Patient also pulmonary edema. Patient was started on IV Lasix. Patient also with severe diarrhea and was found to be norovirus positive. Patient with persistent elevated creatinine and nephrology was consulted. Patient underwent
bladder renal ultrasound and CAT scan without contrast and patient was found to have a left hydronephrosis. Urology was consulted. Patient went to the operating room and underwent stent placement of left ureteral. Post stent placement patient
with significant urinary output. Urinary output continued decreased. Patient creatinine stabilized at 4.2. Also with elevated blood pressure was started on Procardia. Patient with mild bump in WBC however patient afebrile. No cough. No
diarrhea. No dysuria. Patient will need to follow-up with urology as outpatient for ureteral stent removal. Discussed case with nephrology as patient eager to go home. Plan will be to start patient on torsemide 40 mg daily. Patient was
recommend to continue taking 20 meq a potassium at home. Patient was recommended to repeat blood work as outpatient by primary doctor. All patient questions were answered and he was agreeable and amenable to discharge home.
Discharge Plan
-
Patient Disposition: Home (Routine Discharge)
Discharge Diagnosis/Procedures: Acute on chronic diastolic heart failure exacerbation
Pulmonary edema
Acute hypoxic respiratory insufficiency
Acute kidney injury on chronic kidney disease stage IV
Anion gap metabolic acidosis
Hyperkalemia
Nausea vomiting and diarrhea secondary to norovirus gastroenteritis
Leukocytosis
Condition: Fair
Diet: Low Cholesterol and Restrict fluids to 48 oz
Activity: With assistance and As tolerated
Driving Restrictions: As prior to admission
Blood Work: cbc and bmp in 3- 5 days via primary doctor
Activity Restrictions/Additional Instructions:
Follow-up with your primary night time nanny
Instructions: *PCP/Other Control Tower Operator Heart Failure Instructions
Referrals:
Darryl Paulson MD [Active] - (you have a stent we biopsied tissue of ureter expect frequency urgency flank pain on urination call Dr Paulson [phone] for results of pathology and to discuss management of stent and hopefully
eventual removal. )
UNKNOWN - PT DOES,NOT KNOW [Family Provider] - in less than 1 week
Antoinette Turner MD [Active] - None
Prescriptions:
New
sodium bicarbonate 650 mg Tablet
650 mg PO TID 14 Days Qty: 42 0RF
nifedipine 30 mg Tablet Extended Release
30 mg PO BID 30 Days Qty: 60 0RF
torsemide 20 mg tablet
40 mg PO DAILY 30 Days Qty: 60 0RF
Continued
loperamide 2 mg Capsule
2 mg PO QIDPRN PRN (Reason: diarrhea)
hydralazine 25 mg Tablet
75 mg PO BID
valacyclovir 500 mg Tablet
500 mg PO DAILY
pyridoxine (vitamin B6) 100 mg Tablet
100 mg PO DAILY
albuterol sulfate 90 mcg/actuation Hfa Aerosol Inhaler
2 puff INHALATION R Q6HPRN PRN (Reason: sob)
calcitriol 0.25 mcg Capsule
0.25 mcg PO MOWEFR
escitalopram oxalate 10 mg Tablet
10 mg PO HS
nebivolol 10 mg Tablet
20 mg PO HS
Darzalex 20 mg/mL Solution
0 mg IV QMONTH
Klor-Con M20
20 meq PO DAILY
Discontinued
potassium chloride [Klor-Con M20] 20 mEq Tablet,Er Particles/Crystals
20 meq PO DAILY
Discharge Orders:
Discharge Patient (As Directed); Ordered 11/07/24
Ordered By: Alber Ahumada
Discharge Date and Time
Print Language: GUYANESE
--- NOTE | 2024-11-07 17:02 | W.PN.NEPH.PH ---
Today's Communication / Plan
-
Okay for discharge
Assessment/Plan
-
IMP:
GE NOrovirus
Acute on chronic diastolic heart failure exacerbation
ALLYSON on CKD stage 4
Non Anion gap metabolic acidosis
Multiple myeloma-Follows with Dr. Silverio Carter [facility] [place].
Hypertension
History of autologous stem cell transplant 2021
Anxiety/depression
h/o A. fib
Anemia
Hypogammaglobulinemia
History of compression fracture T11
Obesity
Sleep apnea
History of gout
PLan:
A/w acute CHF and GE Norovirus
ALLYSON-down to 4.2, likely from polyuria and prerenal etiology , in setting of postobstructive diuresis following stent placement
Urine output 3.4 L somewhat decreased from 5.4 L
left ureter stent placement by urology on 10/31,await biopsy, repeat US no hydro
Polyuria likely a function of post obstruction and loss of concentrating medullary gradient within kidney
continue to hold lasix, echo shows mod to severe MR
non gap met acidosis-monitor on po sodium bicarb
low salt diet and no FR
follow daily wts and labs
d/w pt in detail
Okay for discharge from renal standpoint will follow-up with us within the next week
-
-
Date of Service: November 07, 2024
CC / HPI / ROS
-
Chief Complaint:
CKD stage IV
Acute kidney injury
History of Present Illness:
Creatinine down at 4.2 polyuric over 4.6 liters
Hemodynamically stable
Status post left ureter stent placement on 10/31/2024
Review of Systems:
No fevers
no shortness of breath or chest pain
felt mild nausea during US
Weights down
Labs
-
Labs:
WBC 13.6 10^3/uL (4.8-10.8) H 11/07/24 08:45
RBC 2.83 10^6/uL (4.70-6.10) L 11/07/24 08:45
Hgb 9.5 g/dL (13.0-18.0) L 11/07/24 08:45
Hct 27.7 % (39.0-52.0) L 11/07/24 08:45
Plt Count 142 10^3/uL (130-400) 11/07/24 08:45
Sodium 134 mmol/L (135-145) L 11/07/24 05:12
Potassium 3.6 mmol/L (3.5-5.1) 11/07/24 05:12
Chloride 100 mmol/L (98-107) 11/07/24 05:12
Carbon Dioxide 20 mmol/L (22-30) L 11/07/24 05:12
BUN 74 mg/dl (9-20) H 11/07/24 05:12
Creatinine 4.2 mg/dL (0.7-1.3) H* 11/07/24 05:12
eGFR 15.21 11/07/24 05:12
Glucose 105 mg/dl (70-99) H 11/07/24 05:12
Calcium 9.0 mg/dl (8.4-10.2) 11/07/24 05:12
Hae-Z-Gsskefovtbx Pept > 14547 pg/ml 10/27/24 17:33
Albumin 3.8 g/dl (3.5-5.0) 10/28/24 08:33
Physical Exam
-
Vital Signs:
Vital Signs
Temp Pulse Resp BP Pulse Ox
98.1 F 65 16 140/77 98
11/07/24 15:45 11/07/24 15:45 11/07/24 15:45 11/07/24 15:45 11/07/24 15:45
Cardiovascular:: Regular rate and rhythm
Respiratory:: Bilateral: CTA
Lung Excursion:: Normal
Abdomen:: Nontender and Soft
Bowel Sounds:: Normal
Extremity Edema:: None: Bilateral:
Dugan Catheter: No
--- NOTE | 2024-11-08 11:34 | W.HF.CON ---
Heart Failure
- LV Function
Left ventricular function study result: LV Ejection fraction >/= 50%
Ejection Fraction Percentage: 52
- ARNI
Patient already on ARNI: No
Heart Failure ARNI Not Indicated: LV Ejection Fraction >/= 40%
- ACEI/ARB
Patient already on ACEI/ARB: No
Heart Failure ACEI/ARB Not Indicated: LV Ejection Fraction > 40%
- Beta Sulema
Patient already on Evidence Based Beta Sulema: No
Heart Failure Evidence Based Beta Sulema Not Indicated: LV Ejection Fraction > 40%
- Mineralocorticord Receptor Antagonist
Patient already on MRA: No
Heart Failure MRA Not Indicated: LV Ejection Fraction > 40%
- SGLT-2 Inhibitor
Patient already on SGLT-2 Inhibitor: No
Heart Failure SGLT-2 Inhibitor Contraindication: eGFR < 25
- Afib Anticoagulation
Patient already on Anticoagulation for Afib: No
Heart Failure Afib Anticoagulation Contraindication: Blood Dyscrasias (anemia, multiple myleoma)
- NYHA CHF Classification
NYHA CHF Classification Level: Class III - Symptoms w/ min exertion, interferes w/ nml daily activity
- ACC/AHA Stage
ACC/AHA Stage: Stage C: Symptomatic Heart Failure
== END 2024-11-07 17:31 | disposition home or self-care (01) | DRG 264 ==
LOC: 2 NORTH 21:34
PROVIDERS: Internal Medicine; Nurse Practitioner Gerontology; Physician Assistant; Radiology Neuroradiology; Specialist; ADMITTING PHYSICIAN Internal Medicine; ATTENDING PHYSICIAN Hospitalist; CONSULT PHYSICIAN Internal Medicine; CONSULT PHYSICIAN Specialist; EMERGENCY PHYSICIAN Emergency Medicine
PROC: 0T778DZ Dilation of Left Ureter with Intraluminal Device, Via Natural or Artificial Opening Endoscopic (ICD-10-PCS; 2024-10-31)
PROC: BT1F1ZZ Fluoroscopy of Left Kidney, Ureter and Bladder using Low Osmolar Contrast (ICD-10-PCS; 2024-10-31)
PROC: 0TB78ZX Excision of Left Ureter, Via Natural or Artificial Opening Endoscopic, Diagnostic (ICD-10-PCS; 2024-10-31)
DX: I13.0 Hypertensive heart and chronic kidney disease with heart failure and stage 1 through stage 4 chronic kidney disease, or unspecified chronic kidney disease (principal); I50.33 Acute on chronic diastolic (congestive) heart failure; N17.9 Acute kidney failure, unspecified; A08.11 Acute gastroenteropathy due to Norwalk agent; C90.00 Multiple myeloma not having achieved remission; E87.20 Acidosis, unspecified; Z94.84 Stem cells transplant status; D80.1 Nonfamilial hypogammaglobulinemia; M48.54XA Collapsed vertebra, not elsewhere classified, thoracic region, initial encounter for fracture; N18.4 Chronic kidney disease, stage 4 (severe); N13.1 Hydronephrosis with ureteral stricture, not elsewhere classified; I25.10 Atherosclerotic heart disease of native coronary artery without angina pectoris; I34.0 Nonrheumatic mitral (valve) insufficiency; E87.5 Hyperkalemia; D63.0 Anemia in neoplastic disease; R09.02 Hypoxemia; F32.A Depression, unspecified; F41.9 Anxiety disorder, unspecified; R06.89 Other abnormalities of breathing; I48.91 Unspecified atrial fibrillation; G47.30 Sleep apnea, unspecified; M10.9 Gout, unspecified; Z91.148 Patient's other noncompliance with medication regimen for other reason; Z91.018 Allergy to other foods; Z80.0 Family history of malignant neoplasm of digestive organs; Z80.42 Family history of malignant neoplasm of prostate; Z80.51 Family history of malignant neoplasm of kidney; Z82.3 Family history of stroke; Z92.21 Personal history of antineoplastic chemotherapy
CPT/HCPCS: 88305; 93308; 71046; 74176; 74420; 76000; 76770; 76775; 80048; 80053; 80061; 81003; 81099; 82040; 82570; 82805; 83735; 83880; 83935; 84155; 84156; 84300; 84443; 84550; 85025; 85027; 87045; 87046; 87077; 87324; 87427; 87449; 87798; 88112; 93005; 93321; 93325; 94640; 96374; 99285; A4300; C1713; C1894; C2617

== ENCOUNTER 2024-11-17 06:11 | Inpatient (IN) | payer OTHER, SELFPAY ==
[2024-11-16 18:57] VITALS: BP 107/65
--- NOTE | 2024-11-16 23:08 | ED.GENMED ---
History of Present Illness
General
Chief Complaint: Abnormal Lab Value
Source: patient
Exam Limitations: none
Time Seen by Provider: 11/16/24 23:08
Nursing documentation reviewed up to this point in time: agreed with
History of Present Illness
History of Present Illness:
As documented patient is a 64year-old male with history multiple myeloma on chemo(last 2 wks ago) chronic kidney disease stage IV anemia hypertension, heart failure presents to the ER for evaluation. Patient recently had left ureteral stent during
admission October 27 to November 07. Patient still has stent in place. He has not seen urology. He does feel that he is urinating less than normal and has less urgency. He denies any fever or chills.
Patient was sent for elevated creatinine. He reports his creatinine was in the 4s however today it was found to be around 6.
He was sent by his oncologist DR Lo at [facility].
In addition he reports 2 days ago he did fall and hit his head. He was standing and his blood pressure went low after hydralazine he fell to the ground but did not pass out. He hit his head on drywall he did get himself up he has not thinners. He
has had no headache.
Past History
Past History
ED Past Medical History: Arrthythmia, CAD and Other (Multiple myeloma/renal insufficiency)
ED Past Surgical History: Orthopedic
Social History
Tobacco: Non-smoker
Living: with family
Employment: Employed
Review of Systems
Review of Systems
Allergies reviewed?: Yes
All Other Systems: ROS reviewed and negative except as documented in HPI and ROS
Constitutional: Reports no symptoms; Denies fever, fatigue or chills
Respiratory: Reports no symptoms
Cardiac: Reports no symptoms
ABD/GI: Reports no symptoms
: Reports other (Decreased urination)
Musculoskeletal: Reports no symptoms
Skin: Reports no symptoms
Neurological: Denies headache
Psychiatric: Reports no symptoms
Phy Exam
General Physical Exam
General Presentation: no apparent distress
General age: appears stated age
General Skin: warm and dry
General Mental: alert
General Hydration: appears well hydrated
Cardiovascular Exam
Cardiovascular Exam: regular rate/rhythm and no edema
Pulmonary Exam
Pulmonary Exam: lungs clear and no respiratory distress
Neurological Exam
Neurological Exam: alert and oriented x3
Musculoskeletal Exam
Musculoskeletal Exam: full ROM
Skin Exam
Skin Exam: normal color and warm/dry
Psychiatric Exam
Psychiatric Exam: normal mood/affect
Course
Orders/Labs/Results
Orders:
Orders
11/16/24 23:10
IV Insert/Care/Rem.- Treatment PRN
Urinalysis Reflex To Culture Urgent
Date Specimen was Collected: 11/17/24
Time Specimen was Collected: 01:04
11/16/24 23:55
Bladder Scan- Treatment ONCE
11/16/24 23:56
Complete Blood Count/With Diff Urgent
Comprehensive Metabolic Panel Urgent
Magnesium Urgent
Comment: ADDED
11/16/24 23:57
CT Abd/pel Without Iv Or Oral Urgent
Comment:
Reason For Exam: dec urination hx of stent in place for stone
11/17/24 00:44
Electrocardiogram (*1) Stat
Reason for Study: Other
Other Reason for Exam: chest pain
EKG- Treatment ONCE
11/17/24 01:01
Add On- LAB Urgent
Tests Added?: magnesium
11/17/24 01:20
Osmolality, Random Urine Urgent
Date Specimen was Collected: 11/17/24
Time Specimen was Collected: 01:04
Comment: ADDED
Protein/Creat Ratio (Random) Urgent
Date Specimen was Collected: 11/17/24
Time Specimen was Collected: 01:04
Comment: ADDED
Urine Microscopic Reflex Cult Urgent
Urine Culture Urgent
BERNARD Source: U
Specimen Description:
Date Specimen was Collected: 11/17/24
Time Specimen was Collected: 01:04
11/17/24 01:27
Dugan [Dugan Placement- Treatment] ONCE
Reason for insertion: Acute Kidney Injury
Osmolality, Random Urine Urgent
Urine Creatinine Urgent
Urine Protein Urgent
Urine Protein/Creat Ratio (Random) [Protein/Creat Ratio (Random)] Urgent
Urine Sodium Urgent
11/17/24 01:29
0.9% Sodium Chloride 250 ml [Nss] 250 ml IV BOLUS
11/17/24 01:30
0.45% Sodium Chloride 1000 ml [0.45%NaCl] 1,000 ml Sodium Bicarbonate 75 meq IV 125 mls/hr
11/17/24 01:33
Add On- LAB Urgent
Tests Added?: Urine for Osmolarity,Creatnine,Protein,Prot/Creat Ratio
Abnormal Lab Results
11/16/24 11/17/24
23:56 01:20
WBC 15.4 H 10^3/uL
(4.8-10.8)
RBC 2.95 L 10^6/uL
(4.70-6.10)
Hgb 9.7 L g/dL
(13.0-18.0)
Hct 27.1 L %
(39.0-52.0)
MCH 32.9 H pg
(27.0-31.0)
Abs Immat Gran (auto) 0.1 H 10^3/uL
(0-0.05)
Absolute Neuts (auto) 13.5 H 10^3/uL
(1.4-6.5)
Absolute Lymphs (auto) 0.6 L 10^3/uL
(1.2-3.4)
Absolute Monos (auto) 1.2 H 10^3/uL
(0.1-0.6)
Immature Gran % 0.7 H %
(0-0.5)
Neutrophils % 87.7 H %
(42.2-75.2)
Lymphocytes % 3.9 L %
(20.5-51.1)
Sodium 125 L mmol/L
(135-145)
Chloride 90 L mmol/L
(98-107)
Carbon Dioxide 13 L* mmol/L
(22-30)
BUN 117 H* mg/dl
(9-20)
Creatinine 6.1 H* mg/dL
(0.7-1.3)
Glucose 111 H mg/dl
(70-99)
Calcium 7.0 L mg/dl
(8.4-10.2)
Ur Occult Blood Reflex 1+ A
(Negative)
Leukocyte Esterase Rfl 2+ A
(Negative)
Urine RBC 3-6 A /HPF
(0-2)
Urine WBC (Reflex) >100 A /HPF
(0-5)
Urine Bacteria (Reflex) Many A
(Negative)
Urine Albumin (Reflex) 2+ A
(Neg - Trace)
11/16/24 23:56
11/16/24 23:56
Vital Signs
Initial and Last Documented VS:
Initial Vital Signs
Temp Pulse Resp BP Pulse Ox
98.4 F 67 16 107/65 99
11/16/24 18:57 11/16/24 18:57 11/16/24 18:57 11/16/24 18:57 11/16/24 18:57
Last Documented Vital Signs
Temp Pulse Resp BP Pulse Ox
98.4 F 60 16 111/74 98
11/16/24 18:57 11/17/24 02:30 11/17/24 02:30 11/17/24 02:00 11/17/24 02:30
Exhaust And Muffler Repairer consulted with Physician
Exhaust And Muffler Repairer consulted with physician?: Yes
Name of Physician Consulted: [email or web address]
MDM/Problems Addressed
MDM/Problems Addressed:
Patient is a 64-year-old male with history of multiple myeloma on chemo with stage IV kidney disease sent to the ER for elevated creatinine. Patient was previously admitted in mid October and had a left stent placed. He has had decreased urination.
CT done today shows stent in place with no hydronephrosis stent in good position. typo is noted on radiology reports radiology reports initially documents right stent I did speak with radiology [facility] and they will correct this.
Patient presents here awake alert he denies any fever chills he does feel that he has decreased urination; he presents in renal failure with a BUN of 117 and creatinine of 6.1 potassium is 4.0 calcium is minimally low magnesium added. Urine studies
added. Patient has a minimally elevated white count however denies any fevers or dysuria urine appears clear formal urinalysis pending. Bicarbonate is low at 13. Case of ED physician patient was ordered normal saline bolus though he does have a
history of CHF he has no complaints of shortness of breath lungs are clear now. Patient was also ordered bicarbonate drip . Pt will require admission to the hosp.
UA obtained and infected d/c w/ DR Mcpherson, IV antibx ordered. will check lactic/bc
*Radiology
Radiology exam reviewed: radiology read reviewed
*Pulse Oximetry
Patient hypoxic: no
*EKG
Heart Rate: 61
Rate: normal
Rhythm: sinus
Ischemia: non-specific ST changes
*Critical Care Note
Total Time (30-74mins, 75-104mins- exclusive of procedures): Not Applicable
ED Attending Note
-
Portions of this chart may have been created with voice recognition software.� Occasional wrong word or��sound alike� substitutions may have occurred due to the inherent limitations of voice recognition software.
Discharge Plan
Departure
Patient Disposition: Admit
Date of Disposition: 11/17/24
Time of Disposition: 01:38
Admit to: Telemetry
Admit to doctor: [facility]
Presentation/result/management discussed w/ accepting MD/DO: Hospitalist
Patient with high blood pressure during this ER visit?: No
Condition: Fair
Covid-19: Not Applicable
Discharge Problem:
Acute renal failure, Acute UTI
Prescriptions:
No Action
loperamide 2 mg Capsule
2 mg PO QIDPRN PRN (Reason: diarrhea)
hydralazine 25 mg Tablet
25 mg PO BID
valacyclovir 500 mg Tablet
500 mg PO DAILY
pyridoxine (vitamin B6) 100 mg Tablet
100 mg PO DAILY
albuterol sulfate 90 mcg/actuation Hfa Aerosol Inhaler
2 puff INHALATION R Q6HPRN PRN (Reason: sob)
calcitriol 0.25 mcg Capsule
0.25 mcg PO MOWEFR
escitalopram oxalate 10 mg Tablet
10 mg PO HS
nebivolol 10 mg Tablet
20 mg PO HS
Darzalex 20 mg/mL Solution
0 mg IV QMONTH
sodium bicarbonate 650 mg Tablet
650 mg PO TID 14 Days Qty: 42 0RF
nifedipine 30 mg Tablet Extended Release
30 mg PO BID 30 Days Qty: 60 0RF
torsemide 20 mg tablet
40 mg PO DAILY 30 Days Qty: 60 0RF
Klor-Con M20
20 meq PO DAILY
Referrals:
New Casarez CRNP [Family Provider] -
Interventions
Interventions:
*Risk Screen - Suicide Last Done: 11/16/24 18:57
*General Assessment Last Done: 11/16/24 23:32
*Neglect/Abuse Screening Last Done: 11/16/24 18:57
ED- Fall Risk Assessment Last Done: 11/16/24 23:36
*ED COVID-19 Vaccine History Last Done: 11/16/24 23:31
ED- Cardiac Assessment Last Done: 11/16/24 23:36
ED- Neurological Assessment Last Done: 11/16/24 23:39
ED- Pulmonary Assessment Last Done: 11/16/24 23:38
Discharge Date and Time
Print Language: BAHRAINI
[2024-11-16 23:28] VITALS: BP 116/71
[2024-11-17] VITALS (13 sets, daily range): BP systolic 102–137; BP diastolic 53–85; BMI 28.5
[2024-11-17 00:04] LABS: % Basophils 0.1 % (0-2); % Eosinophils 0.2 % (0-6); % Immature Granulocytes 0.7 % (0-0.5); % Lymphocytes 3.9 % (20.5-51.1); % Monocytes 7.4 % (1.7-9.3); % Neutrophils 87.7 % (42.2-75.2); Absolute Immature Granulocytes 0.1 10^3/uL (0-0.05); Absolute Lymphocytes 0.6 10^3/uL (1.2-3.4); Absolute Monocytes 1.2 10^3/uL (0.1-0.6); Absolute Neutrophils 13.5 10^3/uL (1.4-6.5); Hematocrit 27.1 % (39.0-52.0); Hemoglobin 9.7 g/dL (13.0-18.0); Mean Corp Hgb Conc. 35.8 g/dL (33.0-37.0); Mean Corpuscular Hgb 32.9 pg (27.0-31.0); Mean Corpuscular Volume 91.9 fL (80.0-94.0); Mean Platelet Volume 10.2 fL (7.4-10.4); Nucleated Red Blood Cells % 0 % (-); Platelet Count 135 10^3/uL (130-400); Red Blood Cell Count 2.95 10^6/uL (4.70-6.10); White Blood Cell Count 15.4 10^3/uL (4.8-10.8)
[2024-11-17 00:43] LABS: ALT (SGPT) 34 U/L (0-50); AST (SGOT) 24 U/L (17-59); Albumin 4.1 g/dl (3.5-5.0); Alkaline Phosphatase 79 U/L (38-126); Blood Urea Nitrogen 117 mg/dl (9-20); Carbon Dioxide 13 mmol/L (22-30); Chloride 90 mmol/L (98-107); Glucose 111 mg/dl (70-99); Sodium 125 mmol/L (135-145); Total Bilirubin 0.4 mg/dl (0.2-1.3); Total Protein 6.5 g/dl (6.3-8.2); eGFR 9.72
[2024-11-17 01:37] LABS: Urine Albumin 2+ (Neg - Trace); Urine Bilirubin Negative (Negative); Urine Character Clear (Clear); Urine Color Yellow; Urine Glucose Negative (Negative); Urine Ketone Negative (Negative); Urine Leukocyte 2+ (Negative); Urine Nitrite Negative (Negative); Urine Occult Blood 1+ (Negative); Urine Specific Gravity 1.015 (<1.030); Urine Urobilinogen Negative (Neg - 1+)
[2024-11-17] MEDS: NSS 250 IV (01:41)
[2024-11-17 02:13] LABS: Protein/creatinine Ratio 4.3; Urine Protein 196 mg/dl
[2024-11-17 02:18] LABS: Urine Amorphous Seen; Urine Bacteria Many (Negative); Urine Mucus Moderate; Urine Squamous Cell >30 /LPF (Few); Urine White Cell >100 /HPF (0-5)
[2024-11-17 02:24] LABS: Magnesium 1.6 mg/dl (1.6-2.3)
[2024-11-17] MEDS: SODIUM BICARBONATE 1075 MEQ IV (02:41)
[2024-11-17 03:22] LABS: Osmolality Urine 281 mOsm/kg (300-900)
[2024-11-17] MEDS: ZOSYN 50 IV (03:58)
--- NOTE | 2024-11-17 06:02 | HPS.HSE ---
Family Physician
-
Family Physician: HALINA London
Chief Complaint
-
Abnormal Labs
History of Present Illness
Patient is a 64y M with PMH significant for multiple myeloma on chemotherapy who presents to ED for evaluation of abnormal labs. Patient was recently hospitalized 10/27 - 11/07 for ALLYSON and gastroenteritis. He was found to have L ureteral
obstruction and underwent ureteral stent placement on 10/31/24. Patient states that he has felt fairly well since that discharge - besides some generalized weakness. About 4 days ago he noted intermittent L flank 'soreness' - usually when bearing
down or with certain movements.
He is followed by Dr. Carter at [facility] for his myeloma and states that he had routine labs done recently. He was contacted this evening and advised to present to the ED as his renal function had worsened.
Patient denies any fevers / chills. No dysuria, hematuria, etc.
Medical History
Past Medical History
Past Medical History: Reports Other
Additional Past Medical History:
Multiple Myeloma
Hypertension
CKD IV
HFpEF
Anxiety / Depression
Obesity
JOYCELYN
Gout
Past Surgical History: Reports Other
Additional Past Surgical History:
L Ureteral Stent (10/31/24)
Hip Surgery
Humerus Surgery
Social History
Tobacco: Non-smoker
Alcohol: Occasional
Drug: None
Family History
Family History: Other (Brother: Renal Cancer Father: Colon Cancer, Prostate Cancer)
Allergies / Home Medications
Allergies reflects when Allergies were last updated in [facility].
Home Medications with original date entered in [facility]
Allergy/Medication List:
Allergies
Allergy/AdvReac Type Severity Reaction Status Date / Time
Fruit Extracts Allergy Itching Verified 11/16/24 18:57
[From Fruit & Vegetable
Daily]
Lutein Extract Allergy Itching Verified 11/16/24 18:57
[From Fruit & Vegetable
Daily]
lycopene Allergy Itching Verified 11/16/24 18:57
[From Fruit & Vegetable
Daily]
Home Medications
albuterol sulfate 90 mcg/actuation aerosol inhaler 2 puff inhalation R Q6HPRN PRN sob 10/27/24
calcitriol 0.25 mcg capsule 0.25 mcg PO MOWEFR Electrolyte Repletion 10/27/24
daratumumab 20 mg/mL intravenous solution (Darzalex) 0 mg IV QMONTH Cancer 10/27/24
escitalopram oxalate 10 mg tablet 10 mg PO HS Depression 10/27/24
hydralazine 25 mg tablet 25 mg PO BID Blood Pressure 10/27/24
loperamide 2 mg capsule 2 mg PO QIDPRN PRN diarrhea 10/27/24
nebivolol 10 mg tablet 20 mg PO HS Blood Pressure 10/27/24
pyridoxine (vitamin B6) 100 mg tablet 100 mg PO DAILY Supplement 10/27/24
valacyclovir 500 mg tablet 500 mg PO DAILY antiviral 10/27/24
Klor-Con M20 20 meq PO DAILY 11/07/24
nifedipine 30 mg tablet,extended release 30 mg PO BID 30 days #60 tabs 11/07/24
sodium bicarbonate 650 mg tablet 650 mg PO TID 14 days #42 tabs 11/07/24
torsemide 20 mg tablet 40 mg (2 x 20 mg) PO DAILY 30 days #60 tabs 11/07/24
Review of Systems
-
History Source: Patient
A 12 point ROS was completed and negative except as noted: Yes
Constitutional: Reports Fatigue; Denies Fever or Chills
Respiratory: Denies Cough or Trouble Breathing
Cardiac: Denies Chest Pain or Palpitations
Abdomen/GI: Denies Abdominal Pain, Nausea, Vomiting or Diarrhea
: Reports Flank Pain; Denies Dysuria or Frequency
Neurological: Denies Dizzy or Headache
Psych: Denies Depression or Anxiety
Physical Exam
Vital Signs
Vital Signs
Temp Pulse Resp BP Pulse Ox
98.4 F 60 16 111/74 98
11/16/24 18:57 11/17/24 02:30 11/17/24 02:30 11/17/24 02:00 11/17/24 02:30
Physical Exam
General: Other (64y M in no acute distress.)
HEENT: Moist mucous membranes and PERRLA
Respiratory: Clear; No Wheezes, Rales or Rhonchi
Cardiac: S1/S2 and Regular Rhythm; No Murmur
GI: Soft, Non Tender, Non Distended and Normal Bowel Sounds
Genito-urinary: Costovertebral angle tend (Mild L CVAT)
Musculoskeletal: No Clubbing, No Cyanosis and No Edema
Neuro: AO x 3
Laboratory Results
-
11/16/24 23:56
11/16/24 23:56
Laboratory Results
Total Bilirubin 0.4 mg/dl (0.2-1.3) 11/16/24 23:56
AST 24 U/L (17-59) 11/16/24 23:56
ALT 34 U/L (0-50) 11/16/24 23:56
Alkaline Phosphatase 79 U/L (38-126) 11/16/24 23:56
Impression/Plan
-
A/P: Patient is a 64y M with PMH significant for multiple myeloma on Darzalex and recent admission for ALLYSON and L ureteral obstruction who presents to ED for evaluation of abnormal labs.
ALLYSON on CKD IV
- Admit for further evaluation and treatment.
- SCr = 6.1 compared to recent discharge value of 4.2.
- CT shows perinephric inflammation - but stent well-positioned and no evidence of obstruction.
- Has been on torsemide since discharge and will hold this acutely.
- IVFs with supplemental bicarb.
- Follow labs / lytes for improvement.
- Dugan placed in the ED - monitor I/Os.
- Nephrology evaluation for additional recommendations.
Left Ureteral Obstruction / Stent
- s/p stent placement on 10/31/24.
- Stent well-positioned on current imaging.
- UA with WBC which would be expected with stent in place. Also note many squamous cells.
- Nitrite negative.
- Will hold further abx for now pending urine culture, fever, etc.
- Urology consulted for further recommendations given new L flank discomfort - ? due to the stent itself.
Chronic HFpEF
- Patient with no current evidence of volume overload.
- BP much improved from prior, no edema, etc.
- Hold diuretics acutely as noted above.
- Follow I/Os, daily weights, etc.
Benign Hypertension
- Improved from prior.
- Hold hydralazine. Continue other meds with holding parameters and adjust as needed.
Multiple Myeloma
Anemia secondary to the above
- No significant changes in cell counts.
- On Darzalex as an outpatient / followed by Dr. Carter.
- Follow-up with Heme / Onc as an outpatient.
DVT Prophylaxis: SCDs
Code Status: Full
[2024-11-17 06:24] LABS: Lactic Acid 0.8 mmol/L (0.7-2.0)
[2024-11-17 08:16] LABS: Urine Sodium 22 mmol/L (30-90)
[2024-11-17] MEDS: PROCARDIA XL (EXTENDED RELEASE) PO (08:23)
[2024-11-17] MEDS: ROCALTROL 0.25 MCG PO (08:41)
[2024-11-17] MEDS: VITAMIN B-6 100 MG PO (08:47)
[2024-11-17] MEDS: VALTREX 500 MG PO (08:47)
--- NOTE | 2024-11-17 08:50 | CONS.URO ---
Medical History
History of Present Illness
10/31/2024 Ureteroscopy and Ureteral Stenting by Dr Paulson for proximal ureteral dilatation + hydronephrosis
64y M with PMH significant for multiple myeloma on chemotherapy; he is followed by Dr. Carter at [facility] for his myeloma and states that he had routine labs -- was contacted 11/16/24 during evening and advised to present to the ED as his renal
function had worsened.
Patient denies any fevers / chills. No dysuria, hematuria, etc.. Patient was recently hospitalized 10/27 - 11/07 for ALLYSON and gastroenteritis. He noted intermittent L flank 'soreness' - usually when bearing down or with certain movements.
Past Medical History
Past Medical History: Other (Multiple Myeloma Hypertension CKD IV HFpEF Anxiety / Depression Obesity JOYCELYN Gout)
Past Surgical History: Other (L Ureteral Stent (10/31/24); Bilateral THRs, Humerus Surgery)
Allergies/Home Medications
Allergies
Allergy/AdvReac Type Severity Reaction Status Date / Time
Fruit Extracts Allergy Itching Verified 11/16/24 18:57
[From Fruit & Vegetable
Daily]
Lutein Extract Allergy Itching Verified 11/16/24 18:57
[From Fruit & Vegetable
Daily]
lycopene Allergy Itching Verified 11/16/24 18:57
[From Fruit & Vegetable
Daily]
Home Medications
�Medication �Instructions �Recorded �Confirmed �Type
albuterol sulfate 90 mcg/actuation 2 puff inhalation R Q6HPRN PRN sob 10/27/24 11/17/24 History
aerosol inhaler
calcitriol 0.25 mcg capsule 0.25 mcg PO MOWEFR Electrolyte 10/27/24 11/17/24 History
Repletion
daratumumab 20 mg/mL intravenous 0 mg IV QMONTH Cancer 10/27/24 11/17/24 History
solution (Darzalex)
escitalopram oxalate 10 mg tablet 10 mg PO HS Depression 10/27/24 11/17/24 History
hydralazine 25 mg tablet 25 mg PO BID Blood Pressure 10/27/24 11/17/24 History
nebivolol 10 mg tablet 10 mg PO HS Blood Pressure 10/27/24 11/17/24 History
pyridoxine (vitamin B6) 100 mg 100 mg PO DAILY Supplement 10/27/24 11/17/24 History
tablet
valacyclovir 500 mg tablet 500 mg PO DAILY antiviral 10/27/24 11/17/24 History
nifedipine 30 mg tablet,extended 30 mg PO BID 30 days #60 tabs 11/07/24 11/17/24 Rx
release
potassium chloride 20 mEq 20 meq PO DAILY ##0 11/07/24 11/17/24 History
tablet,extended release
sodium bicarbonate 650 mg tablet 650 mg PO TID 14 days #42 tabs 11/07/24 11/17/24 Rx
torsemide 20 mg tablet 40 mg (2 x 20 mg) PO DAILY 30 days 11/07/24 11/17/24 Rx
#60 tabs
cholecalciferol (vitamin D3) 25 25 mcg PO DAILY 11/17/24 11/17/24 History
mcg (1,000 unit) tablet (Vitamin
D3)
Physical Exam
Vital Signs
Vital Signs
Temp Pulse Resp BP Pulse Ox
97.8 F 61 18 102/55 98
11/17/24 08:36 11/17/24 08:30 11/17/24 07:29 11/17/24 08:23 11/17/24 08:30
Lab / Testing Results
Laboratory Results
11/16/24 23:56
11/16/24 23:56
Physical Exam
General: No Apparent Distress
Respiratory: Non Labored Respirations
Genito-urinary: No Costovertebral Tend
Psych: Calm
Assessment / Plan
-
expected left ureteral stent signs and symptoms -- stent is in proper position
Data Reviewed
-
CT Scan: Image personally visualized and interpreted
Lab Data: Labs Reviewed
Old Records: Reviewed
--- NOTE | 2024-11-17 10:36 | PTCARENOTE ---
Received patient from ED via stretcher. AAOx3, Ambulated to bed with cane and assist x1. Assessed and oriented to room. Call butler in close reach.
--- NOTE | 2024-11-17 11:57 | W.CON.NEPH ---
Consultation
-
Date/Time Consultation Requested: 11/17/2024 9 AM
Date/Time Consultation Performed: 11/17/2024 12 PM
Requesting Provider: Dr. Gabriel
Performing Provider: Dr. Thomas
Reason for Consultation: ALLYSON
Medical History
-
Chief Complaint: ALLYSON
History of Present Illness:
64-year-old male with multiple myeloma on Daratumumab monthly (last dose last Wednesday) prior BMT, CKD stage IV baseline cr low 3 range follows nephro at [facility], hypertension on a multidrug regimen. He was told to come to the emergency room
because blood work as an outpatient had shown ALLYSON. His creatinine was noted to be greater than 6. He was recently in the hospital earlier this month and did also have urinary retention and underwent left-sided ureteral stenting. Since discharge
he had felt fairly well though he had some left-sided discomfort which appears to have resolved at this time. He says that his blood pressures may have dipped lower than his usual. They were running around 120 when they are typically run in the
150 systolic range. He says that his urine has been straw-colored. He also admits that he has not been eating well and possibly eating a little less. He does report some diarrhea though intermittent and minimal.
Past Medical History
multiple myeloma not in remission
Hypertension
CKD4
History of autologous stem cell transplant 2021
Anxiety/depression
A. fib
Anemia
Hypogammaglobulinemia
History of compression fracture T11
Obesity
Sleep apnea
History of gout
Past Surgical History: Other ( closed reduction of elbow fracture, colonoscopy, hip surgery,humerus surgery, ORIF of hip fracture, his dental extraction)
Social History
Tobacco: Non-Smoker
Alcohol: Occasional
Personal:
Living: With Family
Employment: Disabled
Family History
brother with a history of nephrectomy for kidney cancer
Father with prostate cancer and colon cancer, stroke
Allergies / Home Medications
Allergy/AdvReac Type Severity Reaction Status Date / Time
Fruit Extracts Allergy Itching Verified 11/16/24 18:57
[From Fruit & Vegetable
Daily]
Lutein Extract Allergy Itching Verified 11/16/24 18:57
[From Fruit & Vegetable
Daily]
lycopene Allergy Itching Verified 11/16/24 18:57
[From Fruit & Vegetable
Daily]
�Medication �Instructions �Recorded �Confirmed �Type
albuterol sulfate 90 mcg/actuation 2 puff inhalation R Q6HPRN PRN sob 10/27/24 11/17/24 History
aerosol inhaler
calcitriol 0.25 mcg capsule 0.25 mcg PO MOWEFR Electrolyte 10/27/24 11/17/24 History
Repletion
daratumumab 20 mg/mL intravenous 0 mg IV QMONTH Cancer 10/27/24 11/17/24 History
solution (Darzalex)
escitalopram oxalate 10 mg tablet 10 mg PO HS Depression 10/27/24 11/17/24 History
hydralazine 25 mg tablet 25 mg PO BID Blood Pressure 10/27/24 11/17/24 History
nebivolol 10 mg tablet 10 mg PO HS Blood Pressure 10/27/24 11/17/24 History
pyridoxine (vitamin B6) 100 mg 100 mg PO DAILY Supplement 10/27/24 11/17/24 History
tablet
valacyclovir 500 mg tablet 500 mg PO DAILY antiviral 10/27/24 11/17/24 History
nifedipine 30 mg tablet,extended 30 mg PO BID 30 days #60 tabs 11/07/24 11/17/24 Rx
release
potassium chloride 20 mEq 20 meq PO DAILY ##0 11/07/24 11/17/24 History
tablet,extended release
sodium bicarbonate 650 mg tablet 650 mg PO TID 14 days #42 tabs 11/07/24 11/17/24 Rx
torsemide 20 mg tablet 40 mg (2 x 20 mg) PO DAILY 30 days 11/07/24 11/17/24 Rx
#60 tabs
cholecalciferol (vitamin D3) 25 25 mcg PO DAILY 11/17/24 11/17/24 History
mcg (1,000 unit) tablet (Vitamin
D3)
Review of Systems
-
No dizziness or lightheadedness no chest pain no shortness of breath
All other systems: Negative unless noted
Physical Exam
Vital Signs
Vital Signs
Temp Pulse Resp BP Pulse Ox
97.8 F 66 16 128/72 99
11/17/24 09:50 11/17/24 09:50 11/17/24 09:50 11/17/24 09:50 11/17/24 09:50
Lab Results
WBC 15.4 10^3/uL (4.8-10.8) H 11/16/24 23:56
RBC 2.95 10^6/uL (4.70-6.10) L 11/16/24 23:56
Hgb 9.7 g/dL (13.0-18.0) L 11/16/24 23:56
Hct 27.1 % (39.0-52.0) L 11/16/24 23:56
Plt Count 135 10^3/uL (130-400) 11/16/24 23:56
Sodium 125 mmol/L (135-145) L 11/16/24 23:56
Potassium 4.0 mmol/L (3.5-5.1) 11/16/24 23:56
Chloride 90 mmol/L (98-107) L 11/16/24 23:56
Carbon Dioxide 13 mmol/L (22-30) L* 11/16/24 23:56
BUN 117 mg/dl (9-20) H* 11/16/24 23:56
Creatinine 6.1 mg/dL (0.7-1.3) H* 11/16/24 23:56
eGFR 9.72 11/16/24 23:56
Glucose 111 mg/dl (70-99) H 11/16/24 23:56
Calcium 7.0 mg/dl (8.4-10.2) L 11/16/24 23:56
Albumin 4.1 g/dl (3.5-5.0) 11/16/24 23:56
CT abdomen and pelvis without contrast on 11/16/2024
IMPRESSION:
1. Interval placement of double-J LEFT ureteral stent which is in good position with improved left hydronephrosis compared to the prior CT. Mild urothelial thickening within the renal pelvis and proximal ureter. Grossly unremarkable appearance of
the bladder
2. Moderate to severe bilateral renal cortical thickening.
3. Again seen are several lytic lesions within the spine and pelvis compatible with history of multiple myeloma.
4. Additional findings above.
Physical Exam
Patient is awake alert oriented and in no distress. Mood and affect were pleasant, insight and judgment were good. Pupils are equal round and reactive to light, extraocular movements are intact, sclera were anicteric. Hearing was normal, ears and
nose are intact. Oropharynx was clear. Neck was supple with trachea midline and no thyromegaly. Heart was regular rate and rhythm without rubs. Lower extremities without edema. Lungs were clear to auscultation bilaterally and with normal
excursion. Abdomen was soft, nontender, with normal active bowel sounds, and no hepatosplenomegaly. Skin was without rash and with normal turgor.
Data Reviewed
-
CT Scan: Report Reviewed by me
Medical Tests (Nuc Med, Echo etc): Image Personally Visualized and interpreted (EKG on 11/17/2024 by reading shows sinus rhythm, nonspecific ST abnormality)
Labs: Labs Reviewed by me
Old Records: Reviewed
Assessment/Plan
-
IMP:
Heart failure preserved ejection fraction
ALLYSON on CKD stage 4
metabolic acidosis
Multiple myeloma-Follows with Dr. Silverio Carter [facility].
Hypertension
History of autologous stem cell transplant 2021
Anxiety/depression
PAfib
Anemia
Hypogammaglobulinemia
History of compression fracture T11
Obesity
Sleep apnea
gout
Hyponatremia
Plan:
Follow BMP
Continue IV fluids, bicarbonate based
If creatinine does not begin to improve, serologic workup will be ordered
CT does not suggest acute current obstructive issues
Hyponatremia appears to be in part volume mediated though this is curious as he says that he has been eating a high salt diet
He has already said previously that he would except dialysis if needed
[2024-11-17] MEDS: SODIUM BICARBONATE 1150 MEQ IV ×2 (12:22→22:29)
--- NOTE | 2024-11-17 12:34 | W.PN.HOSP.TC ---
Today's Communication/Plan
-
IV fluids
Labs in the morning
Assessment / Plan
Assessment / Plan
Gen-AAOx3, NAD
HEENT-NC, AT, anicteric, clear oral mm
Neck-supple
CV-reg, no M, +S1/S2
Lungs-clear B/L
Abd-soft, NT, ND
Ext-no edema
Musculoskeletal-no cyanosis, clubbing
Skin-warm and dry
Neuro-grossly non-focal
Psych-calm, cooperative
ALLYSON on CKD 4 -etiology unclear but differential diagnosis includes volume depletion due to overdiuresis. Metabolic acidosis noted. Getting IV sodium bicarbonate infusion. Nephrology following. Hold diuretics.
Hyponatremia -125. Possibly hypovolemic hyponatremia. Recheck labs in am.
Recent left ureteral stenting -for obstructive uropathy. Underwent cystoscopy on October 31, 2024. Left proximal ureteral obstruction noted, intraluminal without discrete mass. Biopsy performed, with pathology showing papillary urothelial
hyperplasia with hemorrhage, rare clusters of atypical urothelial cells in a background of blood. Reactive process favored.
Stent remains in place and intact on CT. Hydronephrosis resolved. Urology recommends continue current management. Outpatient follow-up.
Chronic heart failure preserved EF -stable.
Essential hypertension -stable. Continue nebivolol, nifedipine. Hold hydralazine. Hold torsemide.
Multiple myeloma -on monthly Darzalex.
Chronic anemia -hemoglobin stable.
Transient atrial fibrillation -after bone marrow transplant in 2021. Followed [address] Dr. Kristi Billingsley. Not on chronic anticoagulation. Has not had any recurrence of atrial fibrillation as far as he knows. Recommend using a smart watch on
discharge, discussed with patient. Denies history of stroke.
History of T11 compression fracture
Gout
JOYCELYN
Diverticulosis
Full code
Anticipated Discharge: > 48 hours
Subjective/Interval History
-
Date of Service: November 17, 2024
Patient seen and examined. Feeling better. No complaints.
Objective Data
-
Labs:
Laboratory Results
11/16/24
23:56
Sodium 125 L
Potassium 4.0
Chloride 90 L
Carbon Dioxide 13 L*
BUN 117 H*
Creatinine 6.1 H*
Glucose 111 H
Calcium 7.0 L
Total Bilirubin 0.4
AST 24
ALT 34
Alkaline Phosphatase 79
Vital Signs:
Vital Signs
Temp Pulse Resp BP Pulse Ox
97.8 F 66 16 128/72 99
11/17/24 09:50 11/17/24 09:50 11/17/24 09:50 11/17/24 09:50 11/17/24 09:50
I&O
11/16/24 11/17/24 11/18/24
06:59 06:59 06:59
Intake Total 550 / 550
Output Total 800 / 800 650 / 650
Balance -250 / -250 -650 / -650
Review of Systems
-
History Source: Patient
All other systems: Reviewed and negative
[2024-11-17] MEDS: PROCARDIA XL (EXTENDED RELEASE) 30 MG PO (20:09)
[2024-11-17] MEDS: BYSTOLIC 20 MG PO (22:28)
[2024-11-17] MEDS: MELATONIN 5 MG PO (22:28)
[2024-11-18 03:47] VITALS: BP 105/56
[2024-11-18 06:00] VITALS: BMI 27.0
[2024-11-18 06:01] LABS: Hematocrit 22.4 % (39.0-52.0); Hemoglobin 8.3 g/dL (13.0-18.0); Mean Corp Hgb Conc. 37.1 g/dL (33.0-37.0); Mean Corpuscular Hgb 33.6 pg (27.0-31.0); Mean Corpuscular Volume 90.7 fL (80.0-94.0); Mean Platelet Volume 10.5 fL (7.4-10.4); Platelet Count 108 10^3/uL (130-400); Red Blood Cell Count 2.47 10^6/uL (4.70-6.10); Red Cell Dist. Width 13.3 % (11.5-14.5); White Blood Cell Count 8.9 10^3/uL (4.8-10.8)
[2024-11-18 06:44] LABS: Blood Urea Nitrogen 110 mg/dl (9-20); Calcium 6.7 mg/dl (8.4-10.2); Carbon Dioxide 27 mmol/L (22-30); Chloride 88 mmol/L (98-107); Estimated Creatinine Clearance 16 ml/min; Glucose 98 mg/dl (70-99); Magnesium 1.5 mg/dl (1.6-2.3); Phosphorus 6.3 mg/dl (2.5-4.5); Potassium 3.2 mmol/L (3.5-5.1); Sodium 130 mmol/L (135-145); eGFR 12.64
[2024-11-18 07:45] VITALS: BP 136/76
[2024-11-18] MEDS: VITAMIN B-6 100 MG PO (09:11)
[2024-11-18] MEDS: VALTREX 500 MG PO (09:11)
[2024-11-18] MEDS: PROCARDIA XL (EXTENDED RELEASE) 30 MG PO ×2 (09:11→21:14)
[2024-11-18] MEDS: PHOSLO 1334 MG PO ×3 (09:11→16:39)
--- NOTE | 2024-11-18 09:42 | W.PN.HOSP.TC ---
Today's Communication/Plan
-
Replete electrolytes
PhosLo
DC Dugan
Stop IV bicarbonate
Repeat labs in the morning
PT/OT
Assessment / Plan
Assessment / Plan
Gen-AAOx3, NAD
HEENT-NC, AT, anicteric, clear oral mm
Neck-supple
CV-reg, no M, +S1/S2
Lungs-clear B/L
Abd-soft, NT, ND
Ext-no edema
Musculoskeletal-no cyanosis, clubbing
Skin-warm and dry
Neuro-grossly non-focal
Psych-calm, cooperative
ALLYSON on CKD 4 -etiology unclear but differential diagnosis includes volume depletion due to overdiuresis. Diuretics on hold. Metabolic acidosis resolved. Stop IV bicarbonate. Renal function improving, creatinine coming down.
Dugan catheter placed in the emergency room for ALLYSON, not for retention. Patient requesting it to be removed. Can DC Dugan catheter today if okay with nephrology.
Hypovolemic hyponatremia - improving with IV fluids.
Hypokalemia -will replete.
Hypomagnesemia -replete IV.
Hyperphosphatemia/hypocalcemia -due to chronic kidney disease. Start PhosLo with every meal. Suspect component of secondary hyperparathyroidism due to chronic kidney disease. I do not see PTH levels in our system.
Recent left ureteral stenting -for obstructive uropathy. Underwent cystoscopy on October 31, 2024. Left proximal ureteral obstruction noted, intraluminal without discrete mass. Biopsy performed, with pathology showing papillary urothelial
hyperplasia with hemorrhage, rare clusters of atypical urothelial cells in a background of blood. Reactive process favored.
Stent remains in place and intact on CT. Hydronephrosis resolved. Bladder appeared normal on CT. Urology recommends continue current management. Outpatient follow-up.
Chronic heart failure preserved EF -stable.
Essential hypertension -stable. Continue nebivolol, nifedipine. Hold hydralazine. Hold torsemide.
Multiple myeloma -on monthly Darzalex.
Chronic anemia -hemoglobin stable. Component of acute on chronic anemia suspect due to hemodilution from IV fluids. Monitor hemoglobin for now. Doubt bleeding clinically.
Transient atrial fibrillation -after bone marrow transplant in 2021. Followed by Dr. Kristi Billingsley. Not on chronic anticoagulation. Has not had any recurrence of atrial fibrillation as far as he knows. Recommend using a smart watch on
discharge, discussed with patient. Denies history of stroke.
History of T11 compression fracture
Gout
JOYCELYN
Diverticulosis
Full code
PT/OT
Anticipated Discharge: 24 - 48 hours
Subjective/Interval History
-
Date of Service: November 18, 2024
Patient seen and examined. No new complaints.
Objective Data
-
Labs:
Laboratory Results
11/18/24
05:36
WBC 8.9
Hgb 8.3 L
Hct 22.4 L
Plt Count 108 L
Sodium 130 L
Potassium 3.2 L
Chloride 88 L
Carbon Dioxide 27
BUN 110 H*
Creatinine 4.9 H*
Glucose 98
Calcium 6.7 L*
Vital Signs:
Vital Signs
Temp Pulse Resp BP Pulse Ox
98.6 F 62 16 136/76 98
11/18/24 03:47 11/18/24 09:11 11/18/24 03:47 11/18/24 09:11 11/18/24 03:47
I&O
11/17/24 11/18/24 11/19/24
06:59 06:59 06:59
Intake Total 550 / 550 720 / 720
Output Total 800 / 800 1250 / 1250 2375 / 2375
Balance -250 / -250 -1250 / -1250 -1655 / -1655
Review of Systems
-
History Source: Patient
All other systems: Reviewed and negative
[2024-11-18] MEDS: KCL 40 MEQ PO (09:47)
[2024-11-18] MEDS: MAGNESIUM SULFATE 50 IV (09:48)
--- NOTE | 2024-11-18 10:18 | CM ---
CM following re: discharge planning.
Reviewed pt's chart, met with pt.
Pt is a 64 year old male, admitted with primary dx of Hypovolemic hyponatremia.
Pt reports he lives with spouse 2SH, 1 step to enter, has 2 supportive children. Pt described himself as independent ion all areas [employer], uses a cane as needed. Pt reports he is helping his spouse and he asked to help his spouse with caregiver
services. Pt stated he and his spouse do not qualify for Medicaid. A list of fee for services caregiver agencies offered to the pt and pt stated they will not afford to pay privately.
PT and OT will evaluate the pt to determine a level of care at discharge.
PCP: Silverio Casarez
Pharmacy: [facility].
D/C plan: home with anticipated no needs vs VN. Awaiting for PT/OT evaluations and recommendations.
CM will follow with discharge plan updates as hospitalization progresses
--- NOTE | 2024-11-18 11:07 | W.PN.NEPH.PH ---
Today's Communication / Plan
-
Replete electrolytes
Assessment/Plan
-
IMP:
Heart failure preserved ejection fraction
ALLYSON on CKD stage 4 baseline low 3s
metabolic acidosis
Multiple myeloma-Follows with Dr. Silverio Carter [facility].
Hypertension
History of autologous stem cell transplant 2021
Anxiety/depression
PAfib
Anemia
Hypogammaglobulinemia
History of compression fracture T11
Obesity
Sleep apnea
gout
Hyponatremia
Plan:
Follow BMP
No IV fluids
For Dugan removal
Start calcium acetate
Replete magnesium and potassium
He has already said previously that he would except dialysis if needed, but no current emergent dialysis needs
-
-
Date of Service: November 18, 2024
CC / HPI / ROS
-
Chief Complaint:
ALLYSON
History of Present Illness:
ALLYSON/Cr down to 4.9
Sodium up to 130
Potassium low 3.2
Calcium low 6.7
Phosphorus high 6.3
Knees and low 1.5
Review of Systems:
No chest pain or shortness of breath
Labs
-
Labs:
WBC 8.9 10^3/uL (4.8-10.8) 11/18/24 05:36
RBC 2.47 10^6/uL (4.70-6.10) L 11/18/24 05:36
Hgb 8.3 g/dL (13.0-18.0) L 11/18/24 05:36
Hct 22.4 % (39.0-52.0) L 11/18/24 05:36
Plt Count 108 10^3/uL (130-400) L 11/18/24 05:36
Sodium 130 mmol/L (135-145) L 11/18/24 05:36
Potassium 3.2 mmol/L (3.5-5.1) L 11/18/24 05:36
Chloride 88 mmol/L (98-107) L 11/18/24 05:36
Carbon Dioxide 27 mmol/L (22-30) 11/18/24 05:36
BUN 110 mg/dl (9-20) H* 11/18/24 05:36
Creatinine 4.9 mg/dL (0.7-1.3) H* 11/18/24 05:36
eGFR 12.64 11/18/24 05:36
Glucose 98 mg/dl (70-99) 11/18/24 05:36
Calcium 6.7 mg/dl (8.4-10.2) L* 11/18/24 05:36
Phosphorus 6.3 mg/dl (2.5-4.5) H 11/18/24 05:36
Albumin 4.1 g/dl (3.5-5.0) 11/16/24 23:56
Physical Exam
-
Vital Signs:
Vital Signs
Temp Pulse Resp BP Pulse Ox
97.7 F 62 16 136/76 98
11/18/24 07:45 11/18/24 09:11 11/18/24 07:45 11/18/24 09:11 11/18/24 07:45
Cardiovascular:: Regular rate and rhythm
Lung Excursion:: Normal
Abdomen:: Nontender and Soft
Bowel Sounds:: Normal
Extremity Edema:: None: Bilateral:
--- NOTE | 2024-11-18 12:45 | PTCARENOTE ---
Pt. voided 100 ml clear yellow urine at 1230 without difficulty s/p clemons catheter removal.
[2024-11-18 15:20] VITALS: BP 132/70; PULSE 71
[2024-11-18 15:40] VITALS: BP 136/72
--- NOTE | 2024-11-18 15:56 | W.PN.URO.CBU ---
Today's Communication / Plan
-
Voiding with clemons removed
No further intervention from urology standpoint
Follow up with Dr. Paulson for stent removal
Assessment / Plan
-
Flank discomfort and bladder symptoms are typical of indwelling ureteral stent
No obstructive uropathy on imaging and no likely obstructive ALLYSON
Okay to remove clemons - no evidence of urinary retention on admission
Follow up with Dr. Paulson for ureteral stent removal
Diagnosis
-
Date of Service: November 18, 2024
-
Patient Diagnosis:
L Ureteral obstruction s/p ureteroscopy/stent
ALLYSON on CKD
Abdominal pain
Post Op Day:
Subjective
-
no events
flank pain controlled
Objective
-
Vital Signs
Temp Pulse Resp BP Pulse Ox
97.7 F 62 16 136/76 98
11/18/24 07:45 11/18/24 09:11 11/18/24 07:45 11/18/24 09:11 11/18/24 07:45
Intake and Output
11/17/24 11/18/24 11/19/24
06:59 06:59 06:59
Intake Total 550 / 550 720 / 720
Output Total 800 / 800 1250 / 1250 2375 / 2375
Balance -250 / -250 -1250 / -1250 -1655 / -1655
Intake:
Oral fluids 720 / 720
IV fluids (Total) 500 / 500
0.45%NaCl 1,000 ml @ 125 mls/hr 500 / 500
IV .Q8H36M ALEXI with Sodium
Bicarbonate 75 Meq Rx#:[id number]
IV piggybacks 50 / 50
0.45%NaCl 1,000 ml @ 125 mls/hr 50 / 50
IV .Q8H36M ALEXI with Sodium
Bicarbonate 75 Meq Rx#:[id number]
Output:
Urine, Clemons 800 / 800 1250 / 1250 2375 / 2375
Laboratory Results
11/18/24 05:36
11/18/24 05:36
Physical Exam
-
General - well developed, well nourished, no acute distress
Chest - clear bilaterally
Abdomen - soft, non-tender, positive bowel sounds, no CVAT, no incisional pain or distention
[2024-11-18 19:30] VITALS: BP 132/78
[2024-11-18] MEDS: MELATONIN PO (21:15)
[2024-11-18] MEDS: BYSTOLIC 20 MG PO (21:15)
[2024-11-18 23:44] VITALS: BP 117/63
[2024-11-19 03:29] VITALS: BP 130/76
[2024-11-19 05:54] LABS: % Basophils 0.2 % (0-2); % Eosinophils 0.7 % (0-6); % Immature Granulocytes 0.5 % (0-0.5); % Lymphocytes 4.7 % (20.5-51.1); % Monocytes 7.8 % (1.7-9.3); % Neutrophils 86.1 % (42.2-75.2); Absolute Eosinophils 0.1 10^3/uL (0-0.7); Absolute Immature Granulocytes 0.1 10^3/uL (0-0.05); Absolute Lymphocytes 0.5 10^3/uL (1.2-3.4); Absolute Monocytes 0.8 10^3/uL (0.1-0.6); Absolute Neutrophils 9.3 10^3/uL (1.4-6.5); Hematocrit 24.2 % (39.0-52.0); Hemoglobin 8.5 g/dL (13.0-18.0); Mean Corp Hgb Conc. 35.1 g/dL (33.0-37.0); Mean Corpuscular Hgb 32.7 pg (27.0-31.0); Mean Corpuscular Volume 93.1 fL (80.0-94.0); Mean Platelet Volume 10.7 fL (7.4-10.4); Nucleated Red Blood Cells % 0 % (-); Platelet Count 130 10^3/uL (130-400); Red Cell Dist. Width 13.5 % (11.5-14.5); White Blood Cell Count 10.7 10^3/uL (4.8-10.8)
[2024-11-19 06:00] VITALS: BMI 27.0
[2024-11-19 06:12] LABS: Blood Urea Nitrogen 98 mg/dl (9-20); Calcium 7.2 mg/dl (8.4-10.2); Carbon Dioxide 29 mmol/L (22-30); Chloride 91 mmol/L (98-107); Estimated Creatinine Clearance 18 ml/min; Glucose 100 mg/dl (70-99); Phosphorus 4.6 mg/dl (2.5-4.5); Potassium 3.9 mmol/L (3.5-5.1); Sodium 132 mmol/L (135-145)
[2024-11-19 07:35] VITALS: BP 144/84
[2024-11-19] MEDS: PHOSLO 1334 MG PO ×2 (08:47→13:08)
[2024-11-19] MEDS: VITAMIN B-6 100 MG PO (08:47)
[2024-11-19] MEDS: VALTREX 500 MG PO (08:48)
[2024-11-19] MEDS: PROCARDIA XL (EXTENDED RELEASE) 30 MG PO (08:48)
--- NOTE | 2024-11-19 10:54 | W.PN.HOSP.TC ---
Today's Communication/Plan
-
Discharge
Assessment / Plan
Assessment / Plan
Gen-AAOx3, NAD
HEENT-NC, AT, anicteric, clear oral mm
Neck-supple
CV-reg, no M, +S1/S2
Lungs-clear B/L
Abd-soft, NT, ND
Ext-no edema
Musculoskeletal-no cyanosis, clubbing
Skin-warm and dry
Neuro-grossly non-focal
Psych-calm, cooperative
ALLYSON on CKD 4 -etiology unclear but differential diagnosis includes volume depletion due to overdiuresis. Diuretics on hold. Metabolic acidosis resolved. Stop IV bicarbonate. Renal function improving, creatinine coming down and appears to be at
baseline now.
Dugan catheter removed.
Hypovolemic hyponatremia - improving with IV fluids.
Hypokalemia -resolved.
Hypomagnesemia -resolved.
Hyperphosphatemia/hypocalcemia -due to chronic kidney disease. Phosphate level improving. Continue PhosLo with every meal. Suspect component of secondary hyperparathyroidism due to chronic kidney disease. I do not see PTH levels in our system.
Recent left ureteral stenting -for obstructive uropathy. Underwent cystoscopy on October 31, 2024. Left proximal ureteral obstruction noted, intraluminal without discrete mass. Biopsy performed, with pathology showing papillary urothelial
hyperplasia with hemorrhage, rare clusters of atypical urothelial cells in a background of blood. Reactive process favored.
Stent remains in place and intact on CT. Hydronephrosis resolved. Bladder appeared normal on CT. Urology recommends continue current management. Outpatient follow-up.
Chronic heart failure preserved EF -stable. Resume torsemide at a lower dose of 20 mg Wednesday. Discussed with nephrology.
Essential hypertension -stable. Continue nebivolol, nifedipine. Hold hydralazine. Hold torsemide.
Multiple myeloma -on monthly Darzalex.
Chronic anemia -hemoglobin stable. Component of acute on chronic anemia suspect due to hemodilution from IV fluids. Monitor hemoglobin for now. Doubt bleeding clinically. Hemoglobin stable at 8.5 today.
Transient atrial fibrillation -after bone marrow transplant in 2021. Followed [address] Dr[address] Kristi Billingsley. Not on chronic anticoagulation. Has not had any recurrence of atrial fibrillation as far as he knows. Recommend using a smart watch on
discharge, discussed with patient. Denies history of stroke.
History of T11 compression fracture
Gout
JOYCELYN
Diverticulosis
Full code
Dispo - medically stable for discharge. Follow-up with PCP, nephrology, cardiology.
32 minutes spent in discharge process.
Anticipated Discharge: Today
Subjective/Interval History
-
Date of Service: November 19, 2024
Patient seen and examined. No complaints.
Objective Data
-
Labs:
Laboratory Results
11/19/24
05:32
WBC 10.7
Hgb 8.5 L
Hct 24.2 L
Plt Count 130 D
Sodium 132 L
Potassium 3.9
Chloride 91 L
Carbon Dioxide 29
BUN 98 H
Creatinine 4.5 H*
Glucose 100 H
Calcium 7.2 L
Vital Signs:
Vital Signs
Temp Pulse Resp BP Pulse Ox
98.2 F 66 16 144/84 95
11/19/24 07:35 11/19/24 08:48 11/19/24 07:35 11/19/24 08:48 11/19/24 07:35
I&O
11/18/24 11/19/24 11/20/24
06:59 06:59 06:59
Intake Total 1939 / 1939
Output Total 1250 / 1250 4950 / 4950
Balance -1250 / -1250 -3010 / -3010
Review of Systems
-
History Source: Patient
All other systems: Reviewed and negative
--- NOTE | 2024-11-19 10:59 | W.DS.TRANS ---
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
-
Discharge Instructions:
Discharge Diagnosis/Procedures Acute kidney injury, chronic kidney disease,
electrolyte abnormalities, chronic anemia
Diet 2 Gram Sodium
Activity As tolerated,With assistance
Driving Restrictions No driving
Bathing Restrictions None
Blood Work CBC, BMP on Wednesday 11/22
Instructions:
Stand-Alone Forms:
Changes to Home Medications: Yes
Discharge Medications:
DC Medications w/original date entered in [email or web address]
albuterol sulfate 90 mcg/actuation aerosol inhaler 2 puff inhalation R Q6HPRN PRN sob 10/27/24
calcitriol 0.25 mcg capsule 0.25 mcg PO MOWEFR Electrolyte Repletion 10/27/24
daratumumab 20 mg/mL intravenous solution (Darzalex) 0 mg IV QMONTH Cancer 10/27/24
escitalopram oxalate 10 mg tablet 10 mg PO HS Depression 10/27/24
hydralazine 25 mg tablet 25 mg PO BID Blood Pressure 10/27/24
pyridoxine (vitamin B6) 100 mg tablet 100 mg PO DAILY Supplement 10/27/24
valacyclovir 500 mg tablet 500 mg PO DAILY antiviral 10/27/24
nifedipine 30 mg tablet,extended release 30 mg PO BID 30 days #60 tabs 11/07/24
potassium chloride 20 mEq tablet,extended release 20 meq PO DAILY Supplement ##0 11/07/24
sodium bicarbonate 650 mg tablet 650 mg PO TID 14 days #42 tabs 11/07/24
cholecalciferol (vitamin D3) 25 mcg (1,000 unit) tablet (Vitamin D3) 25 mcg PO DAILY Supplement 11/17/24
calcium acetate 667 mg tablet 1,334 mg (2 x 667 mg) PO MEALS #180 tabs 11/19/24
nebivolol 10 mg tablet 20 mg (2 x 10 mg) PO HS #0 tabs 11/19/24
torsemide 20 mg tablet 20 mg PO MOWEFR #20 tabs 11/19/24
Home Medication Changes
Torsemide dose reduced to 20 mg 3 days a week.
Pending Results: No
[2024-11-19 11:30] VITALS: BP 131/72
--- NOTE | 2024-11-19 11:37 | W.PN.NEPH.PH ---
Today's Communication / Plan
-
torsemide MWF
Assessment/Plan
-
IMP:
Heart failure preserved ejection fraction
ALLYSON on CKD stage 4 baseline low 3s
metabolic acidosis
Multiple myeloma-Follows with Dr. Silverio [facility].
Hypertension
History of autologous stem cell transplant 2021
Anxiety/depression
PAfib
Anemia
Hypogammaglobulinemia
History of compression fracture T11
Obesity
Sleep apnea
gout
Hyponatremia
Plan:
Follow BMP
continue calcium acetate
torsemide 20mg MWF, daily weights
dc
-
-
Date of Service: November 19, 2024
CC / HPI / ROS
-
Chief Complaint:
ALLYSON
History of Present Illness:
ALLYSON/Cr down to 4.5
Sodium up to 132
Potassium up to 3.9
Calcium up to 7.2
Phosphorus down to 4.6
Mg up to 2
Review of Systems:
No chest pain or shortness of breath
Labs
-
Labs:
WBC 10.7 10^3/uL (4.8-10.8) 11/19/24 05:32
RBC 2.60 10^6/uL (4.70-6.10) L 11/19/24 05:32
Hgb 8.5 g/dL (13.0-18.0) L 11/19/24 05:32
Hct 24.2 % (39.0-52.0) L 11/19/24 05:32
Plt Count 130 10^3/uL (130-400) D 11/19/24 05:32
Sodium 132 mmol/L (135-145) L 11/19/24 05:32
Potassium 3.9 mmol/L (3.5-5.1) 11/19/24 05:32
Chloride 91 mmol/L (98-107) L 11/19/24 05:32
Carbon Dioxide 29 mmol/L (22-30) 11/19/24 05:32
BUN 98 mg/dl (9-20) H 11/19/24 05:32
Creatinine 4.5 mg/dL (0.7-1.3) H* 11/19/24 05:32
eGFR 14.00 11/19/24 05:32
Glucose 100 mg/dl (70-99) H 11/19/24 05:32
Calcium 7.2 mg/dl (8.4-10.2) L 11/19/24 05:32
Phosphorus 4.6 mg/dl (2.5-4.5) H 11/19/24 05:32
Albumin 4.1 g/dl (3.5-5.0) 11/16/24 23:56
Physical Exam
-
Vital Signs:
Vital Signs
Temp Pulse Resp BP Pulse Ox
98.2 F 66 16 144/84 95
11/19/24 07:35 11/19/24 08:48 11/19/24 07:35 11/19/24 08:48 11/19/24 07:35
Cardiovascular:: Regular rate and rhythm
Respiratory:: Bilateral: Coarse
Lung Excursion:: Normal
Abdomen:: Nontender and Soft
Bowel Sounds:: Normal
Extremity Edema:: +2: Bilateral:
--- NOTE | 2024-11-19 12:01 | CM ---
Addendum entered by Song Grace 11/19/24 12:56:
PT updated note noted - home PT/OT recommended.
Pt is aware, expressed his agreement stating he cannot go for outpatient therapy because he cares for his spouse and being home bound. A list of [facility] vendors provided. Pt preferred [facility]. A referral to [facility] made.
Please fax discharge instructions to [facility] at [phone].
D/C plan: home with [facility] and family support. Son to transport.
Original Note:
CM following re: discharge planning.
Reviewed pt's chart, met with pt.
Discharge order noted. Pt is aware and he stated his son is coming to transport home.
PT and OT evaluations noted - outpatient therapy vs home no needs recommended. Pt declined outpatient therapy recommendation.
D/C plan: home no needs. Son to transport.
--- NOTE | 2024-11-19 12:52 | VATNOTE ---
right subq port deaccessed per protocol. brisk blood return noted prior to.
== END 2024-11-19 14:18 | disposition home health service (06) | DRG 682 ==
LOC: 4 EAST ACU 06:11
PROVIDERS: Nurse Practitioner; ADMITTING PHYSICIAN Hospitalist; ATTENDING PHYSICIAN Hospitalist; CONSULT PHYSICIAN Specialist; EMERGENCY PHYSICIAN Emergency Medicine; FAMILY PHYSICIAN Nurse Practitioner Family; OTHER PHYSICIAN Specialist
DX: N17.9 Acute kidney failure, unspecified (principal); E11.10 Type 2 diabetes mellitus with ketoacidosis without coma; C90.00 Multiple myeloma not having achieved remission; D80.1 Nonfamilial hypogammaglobulinemia; I13.0 Hypertensive heart and chronic kidney disease with heart failure and stage 1 through stage 4 chronic kidney disease, or unspecified chronic kidney disease; I50.32 Chronic diastolic (congestive) heart failure; Z94.84 Stem cells transplant status; E87.1 Hypo-osmolality and hyponatremia; N18.4 Chronic kidney disease, stage 4 (severe); N25.81 Secondary hyperparathyroidism of renal origin; D63.0 Anemia in neoplastic disease; I48.0 Paroxysmal atrial fibrillation; E11.22 Type 2 diabetes mellitus with diabetic chronic kidney disease; I25.10 Atherosclerotic heart disease of native coronary artery without angina pectoris; E83.42 Hypomagnesemia; E83.39 Other disorders of phosphorus metabolism; E83.51 Hypocalcemia; E86.1 Hypovolemia; E87.6 Hypokalemia; F32.A Depression, unspecified; F41.9 Anxiety disorder, unspecified; G47.33 Obstructive sleep apnea (adult) (pediatric); M10.9 Gout, unspecified; Z92.21 Personal history of antineoplastic chemotherapy; Z80.0 Family history of malignant neoplasm of digestive organs; Z80.42 Family history of malignant neoplasm of prostate; Z80.51 Family history of malignant neoplasm of kidney; Z82.3 Family history of stroke
CPT/HCPCS: 36415; 51702; 51798; 74176; 80048; 80053; 81003; 81015; 82570; 83605; 83735; 83935; 84100; 84156; 84300; 85025; 85027; 87040; 87077; 87086; 87147; 93005; 96361; 96365; 97163; 97166; 99285; J7030

== ENCOUNTER 2024-11-28 11:23 | Emergency (ER) | payer OTHER, SELFPAY ==
[2024-11-28 11:25] VITALS: BP 137/79
--- NOTE | 2024-11-28 11:32 | ED.GENMED ---
Addendum entered and electronically signed by Deb Carrillo NP 12/01/24 10:03:
Pt notified of urine cx results, he has appt with PCP in one hour, he will discuss results with him.
Original Note:
ED Provider Triage
<Hemant Day PA-C - Last Filed: 11/28/24 11:32>
-
Patient seen by provider in Triage?: Seen in Triage
Attestation: A medical screening examination has been initiated by a qualified medical provider. Based on the assessment performed at this time, it has been determined that an emergent medical condition may exist and the patient has been informed
that further medical evaluation and possible additional diagnostic testing may be needed.
HPI: 64-year-old male history of multiple myeloma presents due to abnormal labs. Reportedly had labs done yesterday showing elevated white blood cell count and elevated creatinine, creatinine at time of discharge from hospital last week was 4.5 and
yesterday was reportedly 6.0. He states he feels well and denies complaints
GENERAL: Alert , in no apparent distress
EYE: No visual abnormalities.
NECK: Trachea midline
ENT: No visible abnormalities.
LUNGS: No acute respiratory distress
NEUROLOGICAL: Alert and oriented
SKIN: Skin intact. No visible changes.
MUSCULOSKELETAL: Moving extremities normally
PSYCH: Normal and appropriate interaction.
This is a medical evaluation conducted in person to initiate diagnostic evaluation and provide initial therapeutics. Please see further documentation by the treating clinician.
History of Present Illness
<Hemant Day PA-C - Last Filed: 11/28/24 11:32>
General
Chief Complaint: Abnormal Lab Value
Time Seen by Provider: 11/28/24 13:21
<Silverio Arevalo PA-C - Last Filed: 11/28/24 16:55>
General
Source: patient
Exam Limitations: none
History of Present Illness
History of Present Illness:
64-year-old male with history of multiple myeloma CHF chronic kidney disease presents without complaint but states his outpatient labs were abnormal. He states his creatinine is increasing as is his white blood cell count. He notes he feels
deconditioned from recent hospital visits but no new symptoms. He notes left-sided chest pain from a recent fall. No leg swelling. No shortness of breath. No other complaints
Past History
<Hemant Day PA-C - Last Filed: 11/28/24 11:32>
Past History
ED Past Medical History: Arrthythmia, CAD and Other (Multiple myeloma/renal insufficiency)
ED Past Surgical History: Orthopedic
Social History
Tobacco: Non-smoker
Living: with family
Employment: Employed
Phy Exam
<Silverio Arevalo PA-C - Last Filed: 11/28/24 16:55>
Physical Exam
Physical Exam:
General: Well-developed male no acute respiratory distress
HEENT: Normocephalic atraumatic
Heart: Regular rate and rhythm no murmurs
Lungs: Breath sounds heard in all [place]
Extremities: No cyanosis
Course
<Hemant Day PA-C - Last Filed: 11/28/24 11:32>
Orders/Labs/Results
Orders:
Orders
11/28/24 11:38
Complete Blood Count/With Diff Urgent
Comprehensive Metabolic Panel Urgent
Venous Blood Gas Urgent
%Oxygen/Room Air: 97
11/28/24 13:13
CR Chest - 2 Views Urgent
Comment:
Reason For Exam: poss CHF
11/28/24 14:30
Urinalysis Reflex To Culture Urgent
Date Specimen was Collected: 11/28/24
Time Specimen was Collected: 13:55
Urine Microscopic Reflex Cult Urgent
Urine Culture Urgent
BERNARD Source: U
Specimen Description:
Date Specimen was Collected: 11/28/24
Time Specimen was Collected: 13:55
11/28/24 15:20
NT-proBNP Urgent
Abnormal Lab Results
11/28/24 11/28/24
11:38 14:30
WBC 15.7 H 10^3/uL
(4.8-10.8)
RBC 2.88 L 10^6/uL
(4.70-6.10)
Hgb 9.6 L g/dL
(13.0-18.0)
Hct 27.8 L %
(39.0-52.0)
MCV 96.5 H fL
(80.0-94.0)
MCH 33.3 H pg
(27.0-31.0)
Abs Immat Gran (auto) 0.1 H 10^3/uL
(0-0.05)
Absolute Neuts (auto) 14.0 H 10^3/uL
(1.4-6.5)
Absolute Lymphs (auto) 0.7 L 10^3/uL
(1.2-3.4)
Absolute Monos (auto) 0.8 H 10^3/uL
(0.1-0.6)
Immature Gran % 0.7 H %
(0-0.5)
Neutrophils % 89.3 H %
(42.2-75.2)
Lymphocytes % 4.2 L %
(20.5-51.1)
VBG pH 7.31 L
(7.32-7.43)
VBG HCO3 21.9 L mmol/L
(22-27)
Sodium 134 L mmol/L
(135-145)
Potassium 5.2 H mmol/L
(3.5-5.1)
Chloride 97 L mmol/L
(98-107)
Carbon Dioxide 21 L mmol/L
(22-30)
BUN 84 H mg/dl
(9-20)
Creatinine 5.6 H* mg/dL
(0.7-1.3)
Glucose 123 H mg/dl
(70-99)
ALT 89 H U/L
(0-50)
Ur Occult Blood Reflex 1+ A
(Negative)
Leukocyte Esterase Rfl 3+ A
(Negative)
Urine WBC (Reflex) 30-40 A /HPF
(0-5)
Urine Bacteria (Reflex) Few A
(Negative)
Urine Albumin (Reflex) 3+ A
(Neg - Trace)
11/28/24 11:38
11/28/24 11:38
Vital Signs
Initial and Last Documented VS:
Initial Vital Signs
Temp Pulse Resp BP Pulse Ox
98.4 F 65 16 137/79 100
11/28/24 11:25 11/28/24 11:25 11/28/24 11:25 11/28/24 11:25 11/28/24 11:25
Last Documented Vital Signs
Temp Pulse Resp BP Pulse Ox
98.4 F 67 16 120/67 99
11/28/24 11:25 11/28/24 13:54 11/28/24 13:54 11/28/24 13:54 11/28/24 13:54
Brisalt;Silverio Arevalo PA-C - Last Filed: 11/28/24 16:55>
Orders/Labs/Results
Orders:
Orders
11/28/24 11:38
Complete Blood Count/With Diff Urgent
Comprehensive Metabolic Panel Urgent
Venous Blood Gas Urgent
%Oxygen/Room Air: 97
11/28/24 13:13
CR Chest - 2 Views Urgent
Comment:
Reason For Exam: poss CHF
11/28/24 14:30
Urinalysis Reflex To Culture Urgent
Date Specimen was Collected: 11/28/24
Time Specimen was Collected: 13:55
Urine Microscopic Reflex Cult Urgent
Urine Culture Urgent
BERNARD Source: U
Specimen Description:
Date Specimen was Collected: 11/28/24
Time Specimen was Collected: 13:55
11/28/24 15:20
NT-proBNP Urgent
Abnormal Lab Results
11/28/24 11/28/24
11:38 14:30
WBC 15.7 H 10^3/uL
(4.8-10.8)
RBC 2.88 L 10^6/uL
(4.70-6.10)
Hgb 9.6 L g/dL
(13.0-18.0)
Hct 27.8 L %
(39.0-52.0)
MCV 96.5 H fL
(80.0-94.0)
MCH 33.3 H pg
(27.0-31.0)
Abs Immat Gran (auto) 0.1 H 10^3/uL
(0-0.05)
Absolute Neuts (auto) 14.0 H 10^3/uL
(1.4-6.5)
Absolute Lymphs (auto) 0.7 L 10^3/uL
(1.2-3.4)
Absolute Monos (auto) 0.8 H 10^3/uL
(0.1-0.6)
Immature Gran % 0.7 H %
(0-0.5)
Neutrophils % 89.3 H %
(42.2-75.2)
Lymphocytes % 4.2 L %
(20.5-51.1)
VBG pH 7.31 L
(7.32-7.43)
VBG HCO3 21.9 L mmol/L
(22-27)
Sodium 134 L mmol/L
(135-145)
Potassium 5.2 H mmol/L
(3.5-5.1)
Chloride 97 L mmol/L
(98-107)
Carbon Dioxide 21 L mmol/L
(22-30)
BUN 84 H mg/dl
(9-20)
Creatinine 5.6 H* mg/dL
(0.7-1.3)
Glucose 123 H mg/dl
(70-99)
ALT 89 H U/L
(0-50)
Ur Occult Blood Reflex 1+ A
(Negative)
Leukocyte Esterase Rfl 3+ A
(Negative)
Urine WBC (Reflex) 30-40 A /HPF
(0-5)
Urine Bacteria (Reflex) Few A
(Negative)
Urine Albumin (Reflex) 3+ A
(Neg - Trace)
11/28/24 11:38
11/28/24 11:38
Vital Signs
Initial and Last Documented VS:
Initial Vital Signs
Temp Pulse Resp BP Pulse Ox
98.4 F 65 16 137/79 100
11/28/24 11:25 11/28/24 11:25 11/28/24 11:25 11/28/24 11:25 11/28/24 11:25
Last Documented Vital Signs
Temp Pulse Resp BP Pulse Ox
98.4 F 67 16 120/67 99
11/28/24 11:25 11/28/24 13:54 11/28/24 13:54 11/28/24 13:54 11/28/24 13:54
<Silverio Arevalo PA-C - Last Filed: 11/28/24 16:55>
*Critical Care Note
Total Time (30-74mins, 75-104mins- exclusive of procedures): Not Applicable
<Silverio Arevalo PA-C - Last Filed: 11/28/24 16:55>
Update Note
Update Note:
Reviewed blood work with nephrology discussed with nephrology over the telephone. No concerning or compelling reason for admission to hospital. Advised that the patient follow-up with his clinical nurse educator and Pam Stanford
ED Attending Note
<Hemant Day PA-C - Last Filed: 11/28/24 11:32>
-
Portions of this chart may have been created with voice recognition software.� Occasional wrong word or��sound alike� substitutions may have occurred due to the inherent limitations of voice recognition software.
Discharge Plan
Departure
Patient Disposition: Home (Routine Discharge)
Date of Disposition: 11/28/24
Time of Disposition: 16:52
Patient with high blood pressure during this ER visit?: No
Discharge Problem:
CKD (chronic kidney disease)
Prescriptions:
No Action
hydralazine 25 mg Tablet
25 mg PO BID
valacyclovir 500 mg Tablet
500 mg PO DAILY
pyridoxine (vitamin B6) 100 mg Tablet
100 mg PO DAILY
albuterol sulfate 90 mcg/actuation Hfa Aerosol Inhaler
2 puff INHALATION R Q6HPRN PRN (Reason: sob)
calcitriol 0.25 mcg Capsule
0.25 mcg PO MOWEFR
escitalopram oxalate 10 mg Tablet
10 mg PO HS
Darzalex 20 mg/mL Solution
0 mg IV QMONTH
sodium bicarbonate 650 mg Tablet
650 mg PO TID 14 Days Qty: 42 0RF
Rx Instructions:
for 14 days starting 11/07/24
nifedipine 30 mg Tablet Extended Release
30 mg PO BID 30 Days Qty: 60 0RF
potassium chloride 20 mEq Tablet Extended Release
20 meq PO DAILY Qty: 0
cholecalciferol (vitamin D3) [Vitamin D3] 25 mcg (1,000 unit) Tablet
25 mcg PO DAILY
nebivolol 10 mg Tablet
20 mg PO HS Qty: 0 0RF
calcium acetate 667 mg Tablet
1,334 mg PO MEALS Qty: 180 0RF
torsemide 20 mg tablet
20 mg PO MOWEFR Qty: 20 0RF
Referrals:
[place] CRNP [Family Provider] -
Activity Restrictions/Additional Instructions:
Please follow-up with your clinical nurse educator for further evaluation. Return if needed otherwise
Interventions
Interventions:
*Risk Screen - Suicide Last Done: 11/28/24 13:41
*General Assessment Last Done: 11/28/24 13:40
*Neglect/Abuse Screening Last Done: 11/28/24 13:40
*ED COVID-19 Vaccine History Last Done: 11/28/24 13:40
Discharge Date and Time
Print Language: YAKUT
[2024-11-28 11:45] LABS: % Basophils 0.3 % (0-2); % Eosinophils 0.5 % (0-6); % Immature Granulocytes 0.7 % (0-0.5); % Lymphocytes 4.2 % (20.5-51.1); % Neutrophils 89.3 % (42.2-75.2); Absolute Eosinophils 0.1 10^3/uL (0-0.7); Absolute Immature Granulocytes 0.1 10^3/uL (0-0.05); Absolute Lymphocytes 0.7 10^3/uL (1.2-3.4); Absolute Monocytes 0.8 10^3/uL (0.1-0.6); Hematocrit 27.8 % (39.0-52.0); Hemoglobin 9.6 g/dL (13.0-18.0); Mean Corp Hgb Conc. 34.5 g/dL (33.0-37.0); Mean Corpuscular Hgb 33.3 pg (27.0-31.0); Mean Corpuscular Volume 96.5 fL (80.0-94.0); Mean Platelet Volume 10.3 fL (7.4-10.4); Nucleated Red Blood Cells % 0 % (-); Platelet Count 205 10^3/uL (130-400); Red Blood Cell Count 2.88 10^6/uL (4.70-6.10); Red Cell Dist. Width 13.2 % (11.5-14.5); White Blood Cell Count 15.7 10^3/uL (4.8-10.8)
[2024-11-28 11:59] LABS: Venous Blood Gas HCO3 21.9 mmol/L (22-27); Venous Blood Gas pCO2 43 mmHg (35-48); Venous Blood Gas pH 7.31 (7.32-7.43); Venous Blood Gas pO2 35 mmHg (30-50)
[2024-11-28 12:00] LABS: Venous Blood Gas B.E. -4.4 mmol/L (-4 to +4); Venous Blood Gas O2 Sat % 62.2 %
[2024-11-28 12:01] LABS: ALT (SGPT) 89 U/L (0-50); AST (SGOT) 41 U/L (17-59); Albumin 4.8 g/dl (3.5-5.0); Alkaline Phosphatase 121 U/L (38-126); Blood Urea Nitrogen 84 mg/dl (9-20); Carbon Dioxide 21 mmol/L (22-30); Chloride 97 mmol/L (98-107); Glucose 123 mg/dl (70-99); Potassium 5.2 mmol/L (3.5-5.1); Sodium 134 mmol/L (135-145); Total Bilirubin 0.4 mg/dl (0.2-1.3); Total Protein 7.3 g/dl (6.3-8.2); eGFR 10.77
[2024-11-28 13:54] VITALS: BP 120/67
[2024-11-28 14:49] LABS: Urine Albumin 3+ (Neg - Trace); Urine Bilirubin Negative (Negative); Urine Character Slightly Cloudy (Clear); Urine Color Yellow; Urine Glucose Negative (Negative); Urine Ketone Negative (Negative); Urine Leukocyte 3+ (Negative); Urine Nitrite Negative (Negative); Urine Occult Blood 1+ (Negative); Urine Specific Gravity 1.015 (<1.030); Urine Urobilinogen Negative (Neg - 1+)
[2024-11-28 14:59] LABS: Urine Bacteria Few (Negative); Urine Red Blood Cell 0-2 /HPF (0-2); Urine Squamous Cell 0-2 /LPF (Few); Urine White Cell 30-40 /HPF (0-5)
[2024-11-28 15:56] LABS: NT-proBNP 4540 pg/ml
== END 2024-11-28 17:05 | disposition home or self-care (01) ==
LOC: EMR 11:23
PROVIDERS: Physician Assistant; EMERGENCY PHYSICIAN Student in an Organized Health Care Education/Training Program; FAMILY PHYSICIAN Nurse Practitioner Family
DX: N18.9 Chronic kidney disease, unspecified (principal); I50.9 Heart failure, unspecified; C90.00 Multiple myeloma not having achieved remission; I25.10 Atherosclerotic heart disease of native coronary artery without angina pectoris
CPT/HCPCS: 99284; 71046; 80053; 81003; 81015; 82805; 83880; 85025; 87077; 87086; 87186

== ENCOUNTER 2024-12-15 10:12 | Inpatient (IN) | payer OTHER, SELFPAY ==
[2024-12-15] VITALS (23 sets, daily range): BP systolic 57–144; BP diastolic 62–82; BMI 28.0; BMI 27.1
--- NOTE | 2024-12-15 08:03 | ED.GENMED ---
History of Present Illness
General
Chief Complaint: Abnormal Lab Value
Time Seen by Provider: 12/15/24 08:03
History of Present Illness
History of Present Illness:
TIME OF INITIAL ENCOUNTER: 8:05 AM
HPI: The patient states that he was sent here to be admitted for dialysis. His renal function continues to worsen. He reports having a creatinine over [address] Thomas sent him in and also wanted him to have a renal ultrasound. The patient reports
some decreased urine output. He continues to have some 'stinging' with urination. The patient states he has a left ureteral stent.
EXAM:
GENERAL: Well appearing in no distress
HEENT: Moist oral mucosa
CARDIOVASCULAR: No murmurs, normal heart rate, regular rhythm, No chest wall tenderness, port noted in the right anterior chest wall
PULMONARY: No respiratory distress, breath sounds are clear and equal
ABDOMEN: Soft with no peritoneal signs, no tenderness
NEUROLOGIC: Excellent strength all extremities, no coordination deficits
PSYCHIATRIC: Appropriate mental status, normal insight and judgement
EXTREMITIES: Nontender, no edema, moves all extremities equally
SKIN: Slight grayish discoloration of skin, small area of ecchymosis related to injection of the left lower quadrant of the abdomen
NUMBER AND COMPLEXITY OF PROBLEMS ADDRESSED AT THE ENCOUNTER
� Chronic conditions affecting care: Renal insufficiency, multiple myeloma, A-fib, CHF, CAD, high blood pressure, hyperlipidemia
� Acute Exacerbation and/or Progression of Chronic Illness: This is an acute problem
� Differential Diagnosis includes: Acute on chronic renal insufficiency, dehydration, electrolyte abnormality, progression of multiply myeloma
AMOUNT AND/OR COMPLEXITY OF DATA TO BE REVIEWED AND ANALYZED
� I performed an independent evaluation of and my interpretation is:
EKG:
CT:
X-rays:
Laboratory Studies: White count 22.2 (of note, leukocytosis has been noted since the beginning of the year frequently however it is higher today, hemoglobin 8.9, creatinine 6.5, bicarb 15
Other: Ultrasound shows no hydronephrosis
� Review of other/old records: I reviewed records, the patient's creatinine was 3.8 at the beginning of the year and has been progressively rising and is 5.6 two weeks ago.
� Clinical information was obtained by an independent historian:
� Prescriptions/Medications Considered but not given:
� Further testing considered but not performed:
RISK OF COMPLICATIONS AND/OR MORBIDITY OR MORTALITY OF PATIENT MANAGEMENT
� Social determinants of health affecting care: Lives at home
� Discussion with other providers: I discussed case with Dr. Thomas, his slot ambassador at 8:18 AM
� Escalation of care including admission/observation vs risk of discharge considered: Plan admission to the hospital for initiation of dialysis.
ANY OTHER UPDATES:
Past History
Past History
ED Past Medical History: Arrthythmia, CAD and Other (Multiple myeloma/renal insufficiency)
ED Past Surgical History: Orthopedic
Social History
Tobacco: Non-smoker
Living: with family
Employment: Employed
Phy Exam
Physical Exam
Physical Exam:
See HPI
Course
Orders/Labs/Results
Orders:
Orders
12/15/24 08:13
US Kidneys [US Renal Only W/O Bladder] Urgent
Comment:
Reason For Exam: worsening renal function
12/15/24 08:18
Basic Metabolic Panel Urgent
Complete Blood Count/With Diff Urgent
Magnesium Urgent
Phos [Phosphorus] Urgent
12/15/24 08:23
[facility] CONSULT Routine
Consulting Provider: Wiley Moore
Was physician already notified: Yes
Reason for Consult/Procedure: tunnelled HD CVC, plan for HD today after CVC
Acknowledgement that appropriate orders are entered: Yes
12/15/24 08:25
Heparin See Dose Instructions INTRACATH HD-ONCE ONE
Hemodialysis treatment As Directed
Treatment date:: 12/15/24
Treatment type: Hemodialysis
Ultrafiltration (kg): 0
Treatment time (duration): 2 hours 30 minutes
Use dialysis access:: Tunneled Cath
Dialyzer:: Optiflux 160
Blood flow rate minimum: 250
Blood flow rate maximum: 250
Dialysis flow rate: 600 mL/min
Dialysate temperature: 35 degrees Celsius
Sodium (Na): 140
Potassium (K): 3
Calcium (Ca): 2.5
Bicarbonate (HCO3): 37
12/15/24 09:00
PT/INR [Prothrombin Time] Urgent
Mannitol 25% 12.5 grams IV HD-Q1H
12/15/24 09:11
Urinalysis Reflex To Culture Urgent
Date Specimen was Collected: 12/15/24
Time Specimen was Collected: 10:25
12/15/24 09:45
Admit/Transfer Patient As Directed
Co-Sign Provider:
Level of Care: Inpatient admission
Assign to:: Medical/Surgical
Physician / Group: [facility]
Diagnosis: ESRD
Reason for Hospitalization: Initiation of hemodialysis
Expected length of stay greater than two midnights?: Yes
ELOS- Estimated Length of Stay in days: 3
I certify the patient meets the requirements for IP care: Yes
PRN Pain Medication Management As Directed
May give lesser potent ordered pain med per pt: Yes
preference::
Protocol:: Medication orders for pain may be administered in a
manner that supports deferring to patient preference
when the pt is:
- Requesting an ordered lesser potent pain medication.
Least to most potent pain medications are defined
as: acetaminophen < NSAID < tramadol < opioids
(morphine, oxycodone, hydromorphone).
- Requesting a lesser dose of the same medication IF
ORDERED.
- Requesting a less intrusive route of administration
if both routes are prescribed by the provider (PO <
IV).
02/21/25 09:48
Code Status As Directed
Resuscitation Status: Full Code
12/15/24 10:02
CeFAZolin 2 GRAM [Ancef] 2 grams in 10 ml IV NOW
Abnormal Lab Results
12/15/24
08:18
WBC 22.2 H 10^3/uL
(4.8-10.8)
RBC 2.69 L 10^6/uL
(4.70-6.10)
Hgb 8.9 L g/dL
(13.0-18.0)
Hct 25.6 L %
(39.0-52.0)
MCV 95.2 H fL
(80.0-94.0)
MCH 33.1 H pg
(27.0-31.0)
Abs Immat Gran (auto) 0.6 H 10^3/uL
(0-0.05)
Absolute Neuts (auto) 20.3 H 10^3/uL
(1.4-6.5)
Absolute Lymphs (auto) 0.3 L 10^3/uL
(1.2-3.4)
Absolute Monos (auto) 1.1 H 10^3/uL
(0.1-0.6)
Immature Gran % 2.6 H %
(0-0.5)
Neutrophils % 91.3 H %
(42.2-75.2)
Lymphocytes % 1.1 L %
(20.5-51.1)
Sodium 129 L mmol/L
(135-145)
Chloride 95 L mmol/L
(98-107)
Carbon Dioxide 15 L mmol/L
(22-30)
BUN 116 H* mg/dl
(9-20)
Creatinine 6.5 H* mg/dL
(0.7-1.3)
Glucose 207 H mg/dl
(70-99)
Phosphorus 4.8 H mg/dl
(2.5-4.5)
12/15/24 08:18
12/15/24 08:18
Vital Signs
Initial and Last Documented VS:
Initial Vital Signs
Temp Pulse Resp BP Pulse Ox
36.8 C 58 16 105/62 98
12/15/24 07:35 12/15/24 07:35 12/15/24 07:35 12/15/24 07:35 12/15/24 07:35
Last Documented Vital Signs
Temp Pulse Resp BP Pulse Ox
36.4 C 57 12 119/70 97
12/15/24 10:06 12/15/24 11:14 12/15/24 11:14 12/15/24 11:29 12/15/24 11:30
*Critical Care Note
Total Time (30-74mins, 75-104mins- exclusive of procedures): Not Applicable
ED Attending Note
-
Portions of this chart may have been created with voice recognition software.� Occasional wrong word or��sound alike� substitutions may have occurred due to the inherent limitations of voice recognition software.
Discharge Plan
Departure
Patient Disposition: Admit
Date of Disposition: 12/15/24
Time of Disposition: 09:09
Presentation/result/management discussed w/ accepting MD/DO: Hospitalist
Discharge Problem:
[id number] renal failure
Interventions
Interventions:
*Risk Screen - Suicide Last Done: 12/15/24 07:35
*Neglect/Abuse Screening Last Done: 12/15/24 07:35
[2024-12-15 08:36] LABS: Hematocrit 25.6 % (39.0-52.0); Hemoglobin 8.9 g/dL (13.0-18.0); Mean Corp Hgb Conc. 34.8 g/dL (33.0-37.0); Mean Corpuscular Hgb 33.1 pg (27.0-31.0); Mean Corpuscular Volume 95.2 fL (80.0-94.0); Mean Platelet Volume 10.2 fL (7.4-10.4); Platelet Count 177 10^3/uL (130-400); Red Blood Cell Count 2.69 10^6/uL (4.70-6.10); Red Cell Dist. Width 14.1 % (11.5-14.5); White Blood Cell Count 22.2 10^3/uL (4.8-10.8)
--- NOTE | 2024-12-15 08:58 | W.CON.NEPH ---
Consultation
-
Date/Time Consultation Requested: 12/15/2024 9 AM
Date/Time Consultation Performed: 12/15/2024 9 AM
Requesting Provider: Dr. Malloy
Performing Provider: Dr. Thomas
Reason for Consultation: ESRD
Medical History
-
Chief Complaint: ALLYSON
History of Present Illness:
64-year-old male with multiple myeloma treated by hematology at [facility] [place], prior BMTx, CKD stage V, hypertension on a multidrug regimen. We had seen him at his last admission when he had acute kidney injury believed to be due to his multiple
myeloma treatment and possibly urinary retention. He does have a left ureteral stent in place. At the time of discharge his creatinine was running approximately 4.8. They had already resigned themselves to needing dialysis and had begun the
process of modality teaching. He had decided at that time that he would like to pursue peritoneal dialysis. However, he had blood work performed recently with hematology which had shown a jump in creatinine up to 7.3 with a BUN over 100. Given
this we had a more urgent visit in the office yesterday. At that time it was decided that he should initiate dialysis at this time though it would need to be hemodialysis with eventual transition to peritoneal dialysis. To begin this process. He
remains on a multidrug regimen for the hypertension which is typically controlled. He is on bicarbonate therapy for acidosis which has not been fully controlled. He remains on torsemide without issues of edema. He is also on calcium acetate for
hyperphosphatemia which is stable.
Past Medical History
multiple myeloma not in remission
Hypertension
CKD4
History of autologous stem cell transplant 2021
Anxiety/depression
A. fib
Anemia
Hypogammaglobulinemia
History of compression fracture T11
Obesity
Sleep apnea
History of gout
Past Surgical History: Other ( closed reduction of elbow fracture, colonoscopy, hip surgery,humerus surgery, ORIF of hip fracture, his dental extraction)
Social History
Tobacco: Non-Smoker
Alcohol: Occasional
Personal:
Living: With Family
Employment: Disabled
Family History
brother with a history of nephrectomy for kidney cancer
Father with prostate cancer and colon cancer, stroke
Allergies / Home Medications
Allergy/AdvReac Type Severity Reaction Status Date / Time
Fruit Extracts Allergy Itching Verified 12/15/24 07:38
[From Fruit & Vegetable
Daily]
Lutein Extract Allergy Itching Verified 12/15/24 07:38
[From Fruit & Vegetable
Daily]
lycopene Allergy Itching Verified 12/15/24 07:38
[From Fruit & Vegetable
Daily]
�Medication �Instructions �Recorded �Confirmed �Type
albuterol sulfate 90 mcg/actuation 2 puff inhalation R Q6HPRN PRN sob 10/27/24 11/17/24 History
aerosol inhaler
calcitriol 0.25 mcg capsule 0.25 mcg PO MOWEFR Electrolyte 10/27/24 11/17/24 History
Repletion
daratumumab 20 mg/mL intravenous 0 mg IV QMONTH Cancer 10/27/24 11/17/24 History
solution (Darzalex)
escitalopram oxalate 10 mg tablet 10 mg PO HS Depression 10/27/24 11/17/24 History
hydralazine 25 mg tablet 25 mg PO BID Blood Pressure 10/27/24 11/17/24 History
pyridoxine (vitamin B6) 100 mg 100 mg PO DAILY Supplement 10/27/24 11/17/24 History
tablet
valacyclovir 500 mg tablet 500 mg PO DAILY antiviral 10/27/24 11/17/24 History
nifedipine 30 mg tablet,extended 30 mg PO BID 30 days #60 tabs 11/07/24 11/17/24 Rx
release
potassium chloride 20 mEq 20 meq PO DAILY Supplement ##0 11/07/24 11/17/24 History
tablet,extended release
sodium bicarbonate 650 mg tablet 650 mg PO TID 14 days #42 tabs 11/07/24 11/17/24 Rx
cholecalciferol (vitamin D3) 25 25 mcg PO DAILY Supplement 11/17/24 11/17/24 History
mcg (1,000 unit) tablet (Vitamin
D3)
calcium acetate 667 mg tablet 1,334 mg (2 x 667 mg) PO MEALS 11/19/24 Rx
#180 tabs
nebivolol 10 mg tablet 20 mg (2 x 10 mg) PO HS #0 tabs 11/19/24 Rx
torsemide 20 mg tablet 20 mg PO MOWEFR #20 tabs 11/19/24 Rx
Review of Systems
-
No chest pain or shortness of breath.
All other systems: Negative unless noted
Physical Exam
Vital Signs
Vital Signs
Temp Pulse Resp BP Pulse Ox
98.2 F 58 16 105/62 98
12/15/24 07:35 12/15/24 07:35 12/15/24 07:35 12/15/24 07:35 12/15/24 07:35
Lab Results
WBC 22.2 10^3/uL (4.8-10.8) H 12/15/24 08:18
RBC 2.69 10^6/uL (4.70-6.10) L 12/15/24 08:18
Hgb 8.9 g/dL (13.0-18.0) L 12/15/24 08:18
Hct 25.6 % (39.0-52.0) L 12/15/24 08:18
Plt Count 177 10^3/uL (130-400) 12/15/24 08:18
Laboratory Tests
11/28/24
11:38
Hgb 9.6 L
Carbon Dioxide 21 L
Creatinine 5.6 H*
CT abdomen pelvis 11/16/2024
IMPRESSION:
1. Interval placement of double-J LEFT ureteral stent which is in good position with improved left hydronephrosis compared to the prior CT. Mild urothelial thickening within the renal pelvis and proximal ureter. Grossly unremarkable appearance of
the bladder
2. Moderate to severe bilateral renal cortical thickening.
3. Again seen are several lytic lesions within the spine and pelvis compatible with history of multiple myeloma.
Physical Exam
Patient is awake alert oriented and in no distress. Mood and affect were pleasant, insight and judgment were good. Pupils are equal round and reactive to light, extraocular movements are intact, sclera were anicteric. Hearing was normal, ears and
nose are intact. Oropharynx was clear. Neck was supple with trachea midline and no thyromegaly. Heart was regular rate and rhythm without rubs. Lower extremities without edema. Lungs were clear to auscultation bilaterally and with normal
excursion. Abdomen was soft, nontender, with normal active bowel sounds, and no hepatosplenomegaly. Skin was without rash and with normal turgor.
Data Reviewed
-
CT Scan: Report Reviewed by me
Labs: Labs Reviewed by me
Old Records: Reviewed
Assessment/Plan
-
IMP:
Heart failure preserved ejection fraction
Progressive CKD now ESRD
metabolic acidosis
Multiple myeloma-Follows with Dr. Silverio Carter [facility].
Hypertension
History of autologous stem cell transplant 2021
Anxiety/depression
PAfib
Anemia
Hypogammaglobulinemia
Obesity
Sleep apnea
gout
Hyperphosphatemia
Left ureteral stent
Plan:
Renal bladder ultrasound
Initiate dialysis today
Interventional radiology consultation for tunneled dialysis catheter
Continue antihypertensive medications
Can discontinue bicarbonate therapy
Continue torsemide
Continue calcium acetate
Case management for outpatient dialysis unit planning
If surgery is available I will ask them for earlier PD catheter evaluation
[2024-12-15 09:04] LABS: Blood Urea Nitrogen 116 mg/dl (9-20); Calcium 8.8 mg/dl (8.4-10.2); Carbon Dioxide 15 mmol/L (22-30); Chloride 95 mmol/L (98-107); Glucose 207 mg/dl (70-99); Magnesium 2.3 mg/dl (1.6-2.3); Phosphorus 4.8 mg/dl (2.5-4.5); Sodium 129 mmol/L (135-145)
--- NOTE | 2024-12-15 09:49 | HPS.HSE ---
Family Physician
-
Family Physician: HALINA London
Chief Complaint
-
Progressive renal failure
History of Present Illness
64-year-old male sent in by his value stream manager for initiation of hemodialysis. Has had loss of appetite and malaise for quite some time.
Medical History
Past Medical History
Past Medical History: Reports Other
Additional Past Medical History:
CKD stage V
Multiple myeloma -bone marrow transplant 2021
Chronic heart failure preserved EF
Essential hypertension
Chronic anemia
T11 compression fracture
Gout
JOYCELYN
Diverticulosis
Anxiety/depression
Past Surgical History: Reports Other
Additional Past Surgical History:
Left ureteral stenting -10/31/2024
Left hip surgery
Humerus surgery
Social History
Tobacco: Non-smoker
Alcohol: Occasional
Drug: None
Living: With Family
Family History
Family History: Not pertinent
Allergies / Home Medications
Allergies reflects when Allergies were last updated in [facility].
Home Medications with original date entered in [facility]
Allergy/Medication List:
Allergies
Allergy/AdvReac Type Severity Reaction Status Date / Time
Fruit Extracts Allergy Itching Verified 12/15/24 07:38
[From Fruit & Vegetable
Daily]
Lutein Extract Allergy Itching Verified 12/15/24 07:38
[From Fruit & Vegetable
Daily]
lycopene Allergy Itching Verified 12/15/24 07:38
[From Fruit & Vegetable
Daily]
Home Medications
calcitriol 0.25 mcg capsule 0.25 mcg PO MOWEFR Electrolyte Repletion 10/27/24
daratumumab 20 mg/mL intravenous solution (Darzalex) 0 mg IV QMONTH Cancer 10/27/24
escitalopram oxalate 10 mg tablet 10 mg PO HS Depression 10/27/24
hydralazine 25 mg tablet 25 mg PO BID Blood Pressure 10/27/24
pyridoxine (vitamin B6) 100 mg tablet 100 mg PO DAILY Supplement 10/27/24
valacyclovir 500 mg tablet 500 mg PO DAILY antiviral 10/27/24
nifedipine 30 mg tablet,extended release 30 mg PO BID 30 days #60 tabs 11/07/24
potassium chloride 20 mEq tablet,extended release 20 meq PO MOWEFR Supplement ##0 11/07/24
calcium acetate 667 mg tablet 1,334 mg (2 x 667 mg) PO MEALS #180 tabs 11/19/24
nebivolol 10 mg tablet 20 mg (2 x 10 mg) PO HS #0 tabs 11/19/24
torsemide 20 mg tablet 20 mg PO MOWEFR #20 tabs 11/19/24
Review of Systems
-
History Source: Patient
A 12 point ROS was completed and negative except as noted: Yes
Physical Exam
Vital Signs
Vital Signs
Temp Pulse Resp BP Pulse Ox
98.2 F 59 20 118/70 98
12/15/24 07:35 12/15/24 09:49 12/15/24 09:49 12/15/24 09:49 12/15/24 09:49
Physical Exam
General: Well Developed, Well Nourished, No Apparent Distress and Comfortable
HEENT: NormoCephalic, Anicteric and Moist mucous membranes
Respiratory: Clear
Cardiac: S1/S2 and Regular Rhythm
GI: Soft, Non Tender and Non Distended
Genito-urinary: Deferred by me
Musculoskeletal: No Clubbing, No Cyanosis and No Edema
Skin: Warm and Dry
Neuro: AO x 3
Hematologic/Lymphatic: No Lymphadenopathy
Psych: Calm
Laboratory Results
-
12/15/24 08:18
12/15/24 08:18
Impression/Plan
-
CKD 5 -admit for initiation of hemodialysis per nephrology recommendation. Admit to MedSurg. Consult IR for dialysis access. Patient requesting sedation prior to procedure. Will defer to IR.
Consult social work for hemodialysis clinic assignment.
Metabolic acidosis, serum bicarbonate 15. Elevated anion gap, 19, due to progressive renal failure. Should improve with hemodialysis.
Chronic hyponatremia -sodium 129. Monitor for now.
Hyperglycemia -glucose 207. Rule out diabetes, check hemoglobin A1c.
Multiple myeloma -history of autologous stem cell transplant 2021.
Essential hypertension -relative hypotension noted. Hold oral agents.
Chronic heart failure preserved EF -stable. Continue torsemide.
Chronic anemia -due to chronic kidney disease. Hemoglobin at baseline.
Transient atrial fibrillation after bone marrow transplantation 2021, no recurrence since. Not on anticoagulation. Followed by Dr. Kristi Billingsley
JOYCELYN
Gout
Depression/anxiety
History of T11 compression fracture
Diverticulosis
Full code
[2024-12-15 10:13] LABS: INR 0.97; PT 13.2 Sec (11.4-14.6)
[2024-12-15 10:13] LABS: % Basophils 0.1 % (0-2); % Eosinophils 0.1 % (0-6); % Immature Granulocytes 2.6 % (0-0.5); % Lymphocytes 1.1 % (20.5-51.1); % Monocytes 4.8 % (1.7-9.3); % Neutrophils 91.3 % (42.2-75.2); Absolute Immature Granulocytes 0.6 10^3/uL (0-0.05); Absolute Lymphocytes 0.3 10^3/uL (1.2-3.4); Absolute Monocytes 1.1 10^3/uL (0.1-0.6); Absolute Neutrophils 20.3 10^3/uL (1.4-6.5); Nucleated Red Blood Cells % 0 % (-)
[2024-12-15] MEDS: ANCEF 10 IV (10:30)
[2024-12-15 11:49] LABS: Urine Albumin 3+ (Neg - Trace); Urine Bilirubin Negative (Negative); Urine Character Slightly Cloudy (Clear); Urine Color Yellow; Urine Glucose Negative (Negative); Urine Ketone Negative (Negative); Urine Leukocyte 3+ (Negative); Urine Nitrite Negative (Negative); Urine Occult Blood 4+ (Negative); Urine Urobilinogen Negative (Neg - 1+)
[2024-12-15 13:20] LABS: Urine Amorphous Seen; Urine Urothelial Cell 0-2 /LPF (FEW)
[2024-12-15 13:22] LABS: Urine Bacteria Few (Negative); Urine White Cell >100 /HPF (0-5)
[2024-12-15] MEDS: MANNITOL 25% 12.5 GRAMS IV ×2 (13:37→14:54)
[2024-12-15 15:17] LABS: Hepatitis B Surface Antibody Positive; Hepatitis C Antibody Negative (Negative)
--- NOTE | 2024-12-15 15:17 | W.PN.NEPH.HD ---
Assessment
-
seen on HD. no complaints. VSS, access tunnelled HD CVC.
HD again tomorrow
Progress Note - Hemodialysis
-
Date of Service: December 15, 2024
Duration: 30 minutes and 2 hours
Potassium Bath: 3
Calcium Bath: 2.5
Opti-Dialyzer: 160
Ultrafiltration: Other (no)
Blood Flow: 250
Dialysate Flow: 600
Heparin: no
EPO: no
[2024-12-15 15:34] LABS: Hepatitis B Surface Antigen Negative (Negative)
[2024-12-15] MEDS: HEPARIN 4600 UNITS INTRACATH (16:04)
[2024-12-15 17:59] LABS: Glucose - Point of Care 108 mg/dl (70-99)
[2024-12-15] MEDS: PHOSLO 1334 MG PO (18:05)
[2024-12-15] MEDS: HEPARIN 5000 UNITS SC (21:00)
[2024-12-15] MEDS: LEXAPRO 10 MG PO (21:02)
[2024-12-15 21:29] LABS: Glucose - Point of Care 150 mg/dl (70-99)
[2024-12-16 06:00] VITALS: BMI 26.8
[2024-12-16 07:00] VITALS: BP 132/74
[2024-12-16 08:43] LABS: Glucose - Point of Care 112 mg/dl (70-99)
--- NOTE | 2024-12-16 09:35 | CM ---
CM following re: discharge planning.
Reviewed pt's chart, met with pt.
Pt is a 64 year old male, admitted with primary dx of CKD 5 -admit for initiation of hemodialysis per nephrology recommendation
Pt reports he lives with spouse 2SH, 1 step to enter, has 2 supportive children. Pt described himself as independent in all areas [employer], uses a cane as needed. [facility]. No DME or SNF history.
CM consulted to arrange outpatient HD treatment. CM discussed it with the pt, pt expressed his agreement with going to [facility] outpatient HD treatment center on [facility] [address]. Pt preferred MWF, second shift chair time.
A referral to [facility] made with a request for outpatient HD treatment at [place] on [address].
PCP: Silverio Casarez
Pharmacy: [facility].
D/C plan: home with outpatient HD treatment at [facility] and family support.
CM will follow with discharge plan updates as hospitalization progresses
[2024-12-16] MEDS: VITAMIN B-6 100 MG PO (09:41)
[2024-12-16] MEDS: VALTREX 500 MG PO (09:41)
[2024-12-16] MEDS: PHOSLO 1334 MG PO ×2 (09:41→17:16)
[2024-12-16] MEDS: HEPARIN 5000 UNITS SC ×2 (09:49→19:46)
--- NOTE | 2024-12-16 09:52 | W.PN.HOSP.TC ---
Today's Communication/Plan
-
Dialysis today
Await labs
Assessment / Plan
Assessment / Plan
Gen-AAOx3, NAD
HEENT-NC, AT, anicteric, clear oral mm
Neck-supple
CV-reg, no M, +S1/S2
Lungs-clear B/L
Abd-soft, NT, ND
Ext-no edema
Musculoskeletal-no cyanosis, clubbing
Skin-warm and dry
Neuro-grossly non-focal
Psych-calm, cooperative
CKD 5 -patient admitted to initiate hemodialysis. Getting second dialysis session today. Dialysis clinic assignment per social work.
Metabolic acidosis - serum bicarbonate 15 on admission. Elevated anion gap, 19, due to progressive renal failure. Should improve with hemodialysis. Labs pending for today.
Chronic hyponatremia -sodium 129 on admission, labs pending for today.
Hyperglycemia -glucose 207 yesterday. Rule out diabetes, check hemoglobin A1c.
Multiple myeloma -history of autologous stem cell transplant 2021.
Essential hypertension -relative hypotension noted. Hold oral agents. Blood pressure improving.
Chronic heart failure preserved EF -stable. Continue torsemide.
Chronic anemia -due to chronic kidney disease. Hemoglobin at baseline.
Transient atrial fibrillation after bone marrow transplantation 2021, no recurrence since. Not on anticoagulation. Followed by Dr. Kristi Billingsley
JOYCELYN
Gout
Depression/anxiety
History of T11 compression fracture
Diverticulosis
Full code
Anticipated Discharge: > 48 hours
Subjective/Interval History
-
Date of Service: December 16, 2024
Patient seen and examined. No complaints.
Objective Data
-
Labs:
Laboratory Results
12/16/24
07:00
Hgb Pending
Hct Pending
Sodium Pending
Potassium Pending
Chloride Pending
Carbon Dioxide Pending
BUN Pending
Creatinine Pending
Glucose Pending
Calcium Pending
Vital Signs:
Vital Signs
Temp Pulse Resp BP Pulse Ox
97.9 F 56 16 132/74 97
12/16/24 07:00 12/16/24 07:00 12/16/24 07:00 12/16/24 07:00 12/16/24 07:00
I&O
12/15/24 12/16/24 12/17/24
06:59 06:59 06:59
Intake Total 1360 / 1360
Output Total 980 / 980
Balance 380 / 380
Review of Systems
-
History Source: Patient
All other systems: Reviewed and negative
[2024-12-16 11:54] LABS: Glucose - Point of Care 116 mg/dl (70-99)
[2024-12-16] MEDS: PHOSLO PO (12:00)
[2024-12-16 13:37] LABS: Hematocrit 21.8 % (39.0-52.0); Hemoglobin 7.7 g/dL (13.0-18.0)
[2024-12-16] MEDS: MANNITOL 25% 12.5 GRAMS IV ×2 (13:41→15:37)
[2024-12-16 13:55] LABS: Blood Urea Nitrogen 69 mg/dl (9-20); Calcium 8.6 mg/dl (8.4-10.2); Carbon Dioxide 26 mmol/L (22-30); Chloride 96 mmol/L (98-107); Estimated Creatinine Clearance 17 ml/min; Glucose 113 mg/dl (70-99); Potassium 3.8 mmol/L (3.5-5.1); Sodium 129 mmol/L (135-145)
[2024-12-16 14:13] LABS: Glycohemoglobin (HgbA1c) 5.4 % (4.0-5.6)
--- NOTE | 2024-12-16 14:16 | W.PN.NEPH.HD ---
Assessment
-
Seen on HD. no complaints. VSS, access ok
HD tomorrow
Progress Note - Hemodialysis
-
Date of Service: December 16, 2024
Duration: 3 hours
Potassium Bath: 3
Calcium Bath: 2.5
Opti-Dialyzer: 160
Ultrafiltration: Other (no)
Blood Flow: 300
Dialysate Flow: 600
Heparin: no
EPO: no
[2024-12-16 15:00] VITALS: BP 135/81
--- NOTE | 2024-12-16 15:35 | PTCARENOTE ---
patient denies complaints, tolerating diet, transferring to with standby assist, vss, receiving hemodialysis at present, will continue to monitor.
[2024-12-16 16:51] LABS: Glucose - Point of Care 92 mg/dl (70-99)
[2024-12-16] MEDS: LEXAPRO 10 MG PO (19:47)
[2024-12-16 21:32] LABS: Glucose - Point of Care 93 mg/dl (70-99)
[2024-12-16 23:43] VITALS: BP 151/79
[2024-12-17 05:18] VITALS: BMI 27.2
[2024-12-17 07:00] VITALS: BP 139/77
[2024-12-17 07:41] LABS: Glucose - Point of Care 97 mg/dl (70-99)
[2024-12-17] MEDS: PHOSLO 1334 MG PO ×3 (07:42→18:13)
[2024-12-17] MEDS: RETACRIT 10000 UNITS IV (08:43)
[2024-12-17] MEDS: MANNITOL 25% 12.5 GRAMS IV (08:43)
[2024-12-17 08:52] LABS: Blood Urea Nitrogen 40 mg/dl (9-20); Calcium 8.3 mg/dl (8.4-10.2); Carbon Dioxide 29 mmol/L (22-30); Chloride 95 mmol/L (98-107); Estimated Creatinine Clearance 24 ml/min; Glucose 152 mg/dl (70-99); Potassium 3.3 mmol/L (3.5-5.1); Sodium 131 mmol/L (135-145); eGFR 21.07
[2024-12-17 09:06] LABS: % Basophils 0.2 % (0-2); % Eosinophils 0.8 % (0-6); % Immature Granulocytes 0.9 % (0-0.5); % Lymphocytes 3.2 % (20.5-51.1); % Monocytes 6.2 % (1.7-9.3); % Neutrophils 88.7 % (42.2-75.2); Absolute Eosinophils 0.1 10^3/uL (0-0.7); Absolute Immature Granulocytes 0.1 10^3/uL (0-0.05); Absolute Lymphocytes 0.4 10^3/uL (1.2-3.4); Absolute Monocytes 0.7 10^3/uL (0.1-0.6); Absolute Neutrophils 9.7 10^3/uL (1.4-6.5); Hematocrit 22.6 % (39.0-52.0); Hemoglobin 7.7 g/dL (13.0-18.0); Mean Corp Hgb Conc. 34.1 g/dL (33.0-37.0); Mean Corpuscular Hgb 33.3 pg (27.0-31.0); Mean Corpuscular Volume 97.8 fL (80.0-94.0); Mean Platelet Volume 9.8 fL (7.4-10.4); Nucleated Red Blood Cells % 0 % (-); Platelet Count 108 10^3/uL (130-400); Red Blood Cell Count 2.31 10^6/uL (4.70-6.10)
--- NOTE | 2024-12-17 09:55 | W.PN.HOSP.TC ---
Today's Communication/Plan
-
Continue current care
Assessment / Plan
Assessment / Plan
Gen-AAOx3, NAD
HEENT-NC, AT, anicteric, clear oral mm
Neck-supple
CV-reg, no M, +S1/S2
Lungs-clear B/L
Abd-soft, NT, ND
Ext-no edema
Musculoskeletal-no cyanosis, clubbing
Skin-warm and dry
Neuro-grossly non-focal
Psych-calm, cooperative
CKD 5 -now ESRD, patient admitted to initiate hemodialysis. Getting another dialysis session today. Dialysis clinic assignment per social work.
Metabolic acidosis -due to ESRD. Bicarbonate now normal.
Hypokalemia -should correct on dialysis today.
Chronic hyponatremia -improving.
Hyperglycemia -glucose 152 this morning on BMP, 97 on Accu-Chek. Hemoglobin A1c 5.4% however may not be reliable due to chronic anemia. Monitor for now.
Multiple myeloma -history of autologous stem cell transplant 2021.
Essential hypertension -relative hypotension noted. Hold oral agents. Blood pressure improving.
Chronic heart failure preserved EF -stable. Continue torsemide.
Acute on chronic anemia -due to chronic kidney disease. Hemoglobin down to 7.7. Suspect acute anemia due to progression of renal failure. Getting erythropoietin stimulating agent. Doubt bleeding.
Transient atrial fibrillation after bone marrow transplantation 2021, no recurrence since. Not on anticoagulation. Followed by Dr. Kristi Billingsley
JOYCELYN
Gout
Depression/anxiety
History of T11 compression fracture
Diverticulosis
Full code
Dispo -discharge when cleared by nephrology and dialysis clinic assignment available.
Anticipated Discharge: Within 24 hours
Subjective/Interval History
-
Date of Service: December 17, 2024
Patient seen and examined. No complaints.
Objective Data
-
Labs:
Laboratory Results
12/17/24
08:28
WBC 11.0 H
Hgb 7.7 L
Hct 22.6 L
Plt Count 108 L D
Sodium 131 L
Potassium 3.3 L
Chloride 95 L
Carbon Dioxide 29
BUN 40 H
Creatinine 3.2 H
Glucose 152 H
Calcium 8.3 L
Vital Signs:
Vital Signs
Temp Pulse Resp BP Pulse Ox
97.9 F 62 18 139/77 98
12/17/24 07:00 12/17/24 07:00 12/17/24 07:00 12/17/24 07:00 12/17/24 07:00
I&O
12/16/24 12/17/24 12/18/24
06:59 06:59 06:59
Intake Total 1360 / 1360 2100 / 2100
Output Total 980 / 980 1525 / 1525
Balance 380 / 380 575 / 575
Review of Systems
-
History Source: Patient
All other systems: Reviewed and negative
--- NOTE | 2024-12-17 11:26 | W.PN.NEPH.HD ---
Assessment
-
Seen on HD. no complaints. VSS, access ok
HD tomorrow
await OP arrangements
Progress Note - Hemodialysis
-
Date of Service: December 17, 2024
Duration: 30 minutes and 3 hours
Potassium Bath: 4
Calcium Bath: 2.5
Opti-Dialyzer: 160
Ultrafiltration: Other (0.5)
Blood Flow: 350
Dialysate Flow: 600
Heparin: no
EPO: [id number]
[2024-12-17] MEDS: MANNITOL 25% IV (11:45)
[2024-12-17] MEDS: HEPARIN 4000 UNITS INTRACATH (11:45)
[2024-12-17 12:31] LABS: Glucose - Point of Care 86 mg/dl (70-99)
[2024-12-17] MEDS: HEPARIN 5000 UNITS SC ×2 (12:32→21:05)
[2024-12-17] MEDS: VITAMIN B-6 100 MG PO (12:32)
[2024-12-17] MEDS: VALTREX 500 MG PO (12:32)
[2024-12-17 15:00] VITALS: BP 143/85
[2024-12-17 17:18] LABS: Glucose - Point of Care 105 mg/dl (70-99)
[2024-12-17] MEDS: LEXAPRO 10 MG PO (21:05)
[2024-12-17 21:40] LABS: Glucose - Point of Care 94 mg/dl (70-99)
[2024-12-17 23:59] VITALS: BP 132/82
[2024-12-18 06:00] VITALS: BMI 27.2
[2024-12-18 07:07] VITALS: BP 141/76
[2024-12-18 07:30] LABS: Glucose - Point of Care 102 mg/dl (70-99)
[2024-12-18] MEDS: PHOSLO 1334 MG PO ×2 (07:36→12:28)
--- NOTE | 2024-12-18 08:00 | VNURNOTE ---
Chart reviewed. Patient is current with [facility] nursing, PT. Will continue to follow hospital course and DC plans.
[2024-12-18 08:38] LABS: Blood Urea Nitrogen 32 mg/dl (9-20); Calcium 8.8 mg/dl (8.4-10.2); Carbon Dioxide 28 mmol/L (22-30); Chloride 95 mmol/L (98-107); Estimated Creatinine Clearance 25 ml/min; Glucose 156 mg/dl (70-99); Potassium 3.6 mmol/L (3.5-5.1); Sodium 132 mmol/L (135-145); eGFR 21.89
--- NOTE | 2024-12-18 08:42 | W.PN.HOSP.TC ---
Today's Communication/Plan
-
Discharge planning
Assessment / Plan
Assessment / Plan
Gen-AAOx3, NAD
HEENT-NC, AT, anicteric, clear oral mm
Neck-supple
CV-reg, no M, +S1/S2
Lungs-clear B/L
Abd-soft, NT, ND
Ext-no edema
Musculoskeletal-no cyanosis, clubbing
Skin-warm and dry
Neuro-grossly non-focal
Psych-calm, cooperative
CKD 5 -now ESRD, patient admitted to initiate hemodialysis. Getting another dialysis session today. Dialysis clinic assignment per social work.
Metabolic acidosis -due to ESRD. Bicarbonate now normal.
Hypokalemia -replete and trend
Chronic hyponatremia -improving.
Hyperglycemia -glucose 156 this morning on BMP, 102 on Accu-Chek. Hemoglobin A1c 5.4% however may not be reliable due to chronic anemia but not far off. Monitor for now.
Multiple myeloma -history of autologous stem cell transplant 2021.
Essential hypertension -relative hypotension noted. Hold oral agents. Blood pressure improving.
Chronic heart failure preserved EF -stable. Continue torsemide.
Acute on chronic anemia -due to chronic kidney disease. Hemoglobin down to 7.7 at some point but now 8.3. Suspect acute anemia due to progression of renal failure. Getting erythropoietin stimulating agent. Doubt bleeding.
Transient atrial fibrillation after bone marrow transplantation 2021, no recurrence since. Not on anticoagulation. Followed by Dr. Kristi Billingsley
JOYCELYN
Gout
Depression/anxiety
History of T11 compression fracture
Diverticulosis
Full code
Dispo -discharge when cleared by nephrology and dialysis clinic assignment available.
Anticipated Discharge: 24 - 48 hours
Subjective/Interval History
-
Date of Service: December 18, 2024
No new events. Seen receiving hemodialysis today.
Objective Data
-
Labs:
Laboratory Results
12/18/24
07:30
WBC Pending
Hgb Pending
Hct Pending
Plt Count Pending
Sodium 132 L
Potassium 3.6
Chloride 95 L
Carbon Dioxide 28
BUN 32 H
Creatinine 3.1 H
Glucose 156 H
Calcium 8.8
Vital Signs:
Vital Signs
Temp Pulse Resp BP Pulse Ox
98.8 F 68 17 141/76 98
12/18/24 07:07 12/18/24 07:07 12/18/24 07:07 12/18/24 07:07 12/18/24 07:07
I&O
12/17/24 12/18/24 12/19/24
06:59 06:59 06:59
Intake Total 2100 / 2100 1200 / 1200
Output Total 1525 / 1525 1850 / 1850
Balance 575 / 575 -650 / -650
[2024-12-18 08:47] LABS: % Basophils 0.2 % (0-2); % Lymphocytes 3.1 % (20.5-51.1); % Monocytes 6.1 % (1.7-9.3); % Neutrophils 88.6 % (42.2-75.2); Absolute Eosinophils 0.1 10^3/uL (0-0.7); Absolute Immature Granulocytes 0.1 10^3/uL (0-0.05); Absolute Lymphocytes 0.4 10^3/uL (1.2-3.4); Absolute Monocytes 0.9 10^3/uL (0.1-0.6); Absolute Neutrophils 12.7 10^3/uL (1.4-6.5); Hematocrit 24.5 % (39.0-52.0); Hemoglobin 8.3 g/dL (13.0-18.0); Mean Corp Hgb Conc. 33.9 g/dL (33.0-37.0); Mean Corpuscular Hgb 33.2 pg (27.0-31.0); Mean Platelet Volume 10.1 fL (7.4-10.4); Nucleated Red Blood Cells % 0 % (-); Platelet Count 136 10^3/uL (130-400); White Blood Cell Count 14.3 10^3/uL (4.8-10.8)
[2024-12-18] MEDS: RETACRIT 10000 UNITS IV (09:28)
--- NOTE | 2024-12-18 10:07 | W.PN.NEPH.HD ---
Assessment
-
Patient seen on HD
sbp stable at 135
for discharge once outpatient arrangements at [facility] are provided
Progress Note - Hemodialysis
-
Date of Service: December 18, 2024
Duration: 30 minutes and 3 hours
Potassium Bath: 4
Calcium Bath: 2.5
Opti-Dialyzer: 160
Ultrafiltration: Other (.5kg)
Blood Flow: 400
Dialysate Flow: 600
Heparin: none
EPO: 10,000
[2024-12-18 11:28] LABS: Glucose - Point of Care 86 mg/dl (70-99)
[2024-12-18] MEDS: HEPARIN 4600 UNITS INTRACATH (11:37)
[2024-12-18] MEDS: VALTREX 500 MG PO (12:24)
[2024-12-18] MEDS: HEPARIN 5000 UNITS SC (12:24)
[2024-12-18] MEDS: VITAMIN B-6 100 MG PO (12:24)
[2024-12-18] MEDS: DEMADEX 20 MG PO (12:26)
[2024-12-18] MEDS: ROCALTROL 0.25 MCG PO (12:28)
[2024-12-18 14:55] VITALS: BP 132/75
--- NOTE | 2024-12-18 16:20 | W.DCSUMMARY ---
Discharge Summary
Discharge Data
Date of Admission: 12/15/24
Date of Discharge: 12/18/24
-
Pending Results: No
Hospital Course
Patient is 64 years old male history of multiple myeloma, CKD, hypertension, came into the with worsening renal function. Nephrology consulted and he was initiated on hemodialysis during this hospital stay. He was dialyzed while inpatient. Case
manager department arranged for outpatient hemodialysis and he is being discharged in stable condition today. Oral diuretics and potassium supplements discontinued and can be reevaluated as outpatient if required. He will follow-up with nephrology and PCP as
outpatient.
Discharge duration: 32 minutes
Discharge Plan
-
Patient Disposition: Home (Routine Discharge)
Discharge Diagnosis/Procedures: End-stage renal disease initiated on hemodialysis. Multiple myeloma. Chronic diastolic congestive heart failure.
Diet: Low Cholesterol, 2 Gram Sodium and Restrict fluids to 48 oz
Activity: As tolerated
Blood Work: Please PCP to order CBC, BMP within 1 week
Referrals:
New Casarez CRNP [Family Provider] - in less than 1 week
Hemant Thomas MD [Active] - in one to two weeks
Prescriptions:
Continued
hydralazine 25 mg Tablet
25 mg PO BID
valacyclovir 500 mg Tablet
500 mg PO DAILY
pyridoxine (vitamin B6) 100 mg Tablet
100 mg PO DAILY
calcitriol 0.25 mcg Capsule
0.25 mcg PO MOWEFR
escitalopram oxalate 10 mg Tablet
10 mg PO HS
Darzalex 20 mg/mL Solution
0 mg IV QMONTH
nifedipine 30 mg Tablet Extended Release
30 mg PO BID 30 Days Qty: 60 0RF
nebivolol 10 mg Tablet
20 mg PO HS Qty: 0 0RF
calcium acetate 667 mg Tablet
1,334 mg PO MEALS Qty: 180 0RF
Discontinued
potassium chloride 20 mEq Tablet Extended Release
20 meq PO MOWEFR Qty: 0
torsemide 20 mg tablet
20 mg PO MOWEFR Qty: 20 0RF
Discharge Orders:
Discharge Patient (As Directed); Ordered 12/18/24
Ordered By: Jeremy Hardin
Discharge Date and Time
Discharge Date/Time: 12/18/24 17:56
Print Language: CHINESE
--- NOTE | 2024-12-18 16:22 | CM ---
Addendum entered by XANDER Mack 12/18/24 16:30:
Correction, patient's is Alison.
Original Note:
Placed a call to [facility] in [place] and spoke with an RN named, Monique, who stated that patient does have a confirmed time: Wed, Wed, Wed @ 11:50 (needs to be there at 11:20) on Wednesday to complete consents. Facility is on [address] [place] [address] [address] phone # direct is [phone].
Attending and Nephrology updated. Attending confirmed that patient is cleared for discharge.
Placed a call to patient's , Monique, to update. She is agreeable to schedule and stated that she will be in later to transfer patient home. Will update RN.
Plan: Case management will continue to follow and assist with discharge planning. Home with outpatient HD.
[2024-12-18 16:30] LABS: Glucose - Point of Care 93 mg/dl (70-99)
== END 2024-12-18 17:56 | disposition home or self-care (01) | DRG 683 ==
LOC: 3 WEST ACU 10:12
PROVIDERS: Radiology Vascular & Interventional Radiology; ADMITTING PHYSICIAN Hospitalist; ATTENDING PHYSICIAN Hospitalist; CONSULT PHYSICIAN Specialist; EMERGENCY PHYSICIAN Emergency Medicine; FAMILY PHYSICIAN Nurse Practitioner Family; REFERRING PHYSICIAN Internal Medicine Cardiovascular Disease
PROC: B5141ZA Fluoroscopy of Left Jugular Veins using Low Osmolar Contrast, Guidance (ICD-10-PCS; 2024-12-15)
PROC: 05HN33Z Insertion of Infusion Device into Left Internal Jugular Vein, Percutaneous Approach (ICD-10-PCS; 2024-12-15)
PROC: 5A1D70Z Performance of Urinary Filtration, Intermittent, Less than 6 Hours Per Day (ICD-10-PCS; 2024-12-15)
DX: N17.9 Acute kidney failure, unspecified (principal); C90.00 Multiple myeloma not having achieved remission; Z94.81 Bone marrow transplant status; I13.2 Hypertensive heart and chronic kidney disease with heart failure and with stage 5 chronic kidney disease, or end stage renal disease; I50.32 Chronic diastolic (congestive) heart failure; E87.20 Acidosis, unspecified; E87.1 Hypo-osmolality and hyponatremia; Z94.84 Stem cells transplant status; D80.1 Nonfamilial hypogammaglobulinemia; N18.6 End stage renal disease; Z99.2 Dependence on renal dialysis; D63.1 Anemia in chronic kidney disease; M10.9 Gout, unspecified; G47.33 Obstructive sleep apnea (adult) (pediatric); K57.30 Diverticulosis of large intestine without perforation or abscess without bleeding; F32.A Depression, unspecified; F41.9 Anxiety disorder, unspecified; R73.9 Hyperglycemia, unspecified; E83.39 Other disorders of phosphorus metabolism; E66.9 Obesity, unspecified; Z68.27 Body mass index [BMI] 27.0-27.9, adult; Z80.0 Family history of malignant neoplasm of digestive organs; Z80.42 Family history of malignant neoplasm of prostate; Z80.51 Family history of malignant neoplasm of kidney; Z82.3 Family history of stroke; Z79.899 Other long term (current) drug therapy; I25.10 Atherosclerotic heart disease of native coronary artery without angina pectoris; I48.0 Paroxysmal atrial fibrillation
CPT/HCPCS: 36558; 76775; 76937; 77001; 80048; 81003; 81015; 82962; 83036; 83735; 84100; 85014; 85018; 85025; 85610; 86706; 86803; 87070; 87077; 87086; 87186; 87340; 99152; 99153; 99285; C1750; G0257; P9047; Q5106

== ENCOUNTER 2025-01-26 06:06 | Day surgery (SDC) | payer OTHER, SELFPAY ==
[2025-01-26] VITALS (7 sets, daily range): BP systolic 126–158; BP diastolic 68–82; BMI 27.0
[2025-01-26 07:50] LABS: ALT (SGPT) 14 U/L (0-50); AST (SGOT) 18 U/L (17-59); Albumin 3.7 g/dl (3.5-5.0); Alkaline Phosphatase 58 U/L (38-126); Blood Urea Nitrogen 41 mg/dl (9-20); Carbon Dioxide 25 mmol/L (22-30); Chloride 102 mmol/L (98-107); Estimated Creatinine Clearance 16 ml/min; Glucose 96 mg/dl (70-99); Potassium 3.6 mmol/L (3.5-5.1); Sodium 138 mmol/L (135-145); Total Bilirubin 0.5 mg/dl (0.2-1.3); Total Protein 5.6 g/dl (6.3-8.2); eGFR 12.95
== END 2025-01-26 10:11 | disposition home or self-care (01) ==
LOC: SDS 06:06
PROVIDERS: ATTENDING PHYSICIAN Surgery
DX: N18.6 End stage renal disease (principal); Z45.2 Encounter for adjustment and management of vascular access device
CPT/HCPCS: 49324; 80053; C1750; C1894

== ENCOUNTER → 2025-02-22 09:18 | Outpatient (REF) | payer OTHER, SELFPAY | LOC: HWRAD 09:18 | PROVIDERS: ATTENDING PHYSICIAN Specialist; FAMILY PHYSICIAN Nurse Practitioner Family | DX: N13.1 Hydronephrosis with ureteral stricture, not elsewhere classified (principal) | CPT/HCPCS: 76775 ==

== ENCOUNTER 2025-04-03 06:27 | Day surgery (SDC) | payer OTHER, SELFPAY ==
[2025-03-27 14:03] VITALS: BMI 27.6
[2025-03-27 14:23] LABS: Hemoglobin 12.4 g/dL (13.0-18.0); Mean Corp Hgb Conc. 34.4 g/dL (33.0-37.0); Mean Corpuscular Hgb 33.9 pg (27.0-31.0); Mean Corpuscular Volume 98.4 fL (80.0-94.0); Mean Platelet Volume 9.3 fL (7.4-10.4); Platelet Count 269 10^3/uL (130-400); Red Blood Cell Count 3.66 10^6/uL (4.70-6.10); Red Cell Dist. Width 14.4 % (11.5-14.5); White Blood Cell Count 16.6 10^3/uL (4.8-10.8)
--- NOTE | 2025-03-28 12:03 | PTCARENOTE ---
Abnormal WBC 16.6 collected on 03/27/25, BUN 41, creat 4.8, eGFR 12.9 collected on 01/26/25. Magdalene at Dr Paulson's office notified.
[2025-04-03] VITALS (8 sets, daily range): BP systolic 134–161; BP diastolic 85–93; BMI 27.3
[2025-04-03] MEDS: TYLENOL 1000 MG PO (11:22)
== END 2025-04-03 14:30 | disposition home or self-care (01) ==
LOC: SDS 06:27
PROVIDERS: ATTENDING PHYSICIAN Specialist; FAMILY PHYSICIAN Nurse Practitioner Family
DX: N13.30 Unspecified hydronephrosis (principal); C90.00 Multiple myeloma not having achieved remission; N18.6 End stage renal disease; Z99.2 Dependence on renal dialysis
CPT/HCPCS: 52310; 36415; 74420; 76000; 85027; 87086

== ENCOUNTER → 2025-04-24 12:46 | Outpatient (REF) | payer OTHER, MEDICARE, SELFPAY ==
[2025-04-24 13:03] VITALS: BP 162/100; BP_SYST 85
[2025-04-24 13:40] VITALS: BP 149/96
== END ==
LOC: RADI 12:46
PROVIDERS: ATTENDING PHYSICIAN Specialist
DX: Z49.01 Encounter for fitting and adjustment of extracorporeal dialysis catheter (principal); N18.6 End stage renal disease
CPT/HCPCS: 36589